=== PATIENT | female | born 1970 | race Caucasian/White ===

== ENCOUNTER → 2017-11-13 11:27 | Outpatient (CLI) | payer MEDICARE, SELFPAY ==
[2017-11-13 13:52] LABS: Amphetamine Urine VISTA NEGATIVE (<1000 ng/mL); Barbiturate Urine VISTA NEGATIVE (< 200 ng/mL); Benzodiazepine Urine VISTA NEGATIVE (< 200 ng/mL); Cocaine Urine VISTA NEGATIVE (< 300 ng/mL); Ecstacy Urine VISTA POSITIVE (< 500 ng/mL); Methadone Urine VISTA NEGATIVE (< 300 ng/mL); PCP Urine VISTA NEGATIVE (< 25 ng/mL); THC Urine VISTA NEGATIVE (< 50 ng/mL); Vista UDS pH Range 6
== END ==
PROVIDERS: Family Provider Internal Medicine; PCP Internal Medicine; Visit Provider Anesthesiology Pain Medicine
DX: F11.20 Opioid dependence, uncomplicated (principal)
CPT/HCPCS: 80307

== ENCOUNTER → 2018-01-30 14:51 | Outpatient (CLI) | payer MEDICARE, SELFPAY ==
[2018-01-30 16:06] LABS: ALB/GLOB Ratio 0.9 RATIO (0.9-2.4); AST(SGOT) 33 U/L (15-37); Alanine Aminotransfer ALT/SGPT 38 U/L (13-56); Albumin, Serum 3.8 g/dL (3.2-5.0); Alkaline Phosphatase 124 U/L (45-117); Anion Gap 7 (5-15); BUN 14 mg/dL (7-18); BUN/Creat Ratio 13.9 RATIO (10-20); Calcium,Total 9.2 mg/dL (8.5-10.1); Chloride 107 mmol/L (98-107); Creatinine, Serum 1.01 mg/dL (0.55-1.02); EST Glomerular Filtration Rate 62 mL/min (>60); Est Glom Filt Rate - Afr Amer 75 mL/min (>60); Globulin 4.2 g/dL (2.2-4.2); Glucose 89 mg/dL (74-106); Potassium 3.8 mmol/L (3.5-5.1); Sodium Level 142 mmol/L (136-145)
== END ==
PROVIDERS: Family Provider Internal Medicine; PCP Internal Medicine; Visit Provider Nurse Practitioner Adult Health
DX: Z85.528 Personal history of other malignant neoplasm of kidney (principal)
CPT/HCPCS: 36415; 80053

== ENCOUNTER → 2018-02-07 13:21 | Outpatient (CLI) | payer MEDICARE, SELFPAY ==
--- NOTE | 2018-02-07 13:25 | CT_ITS ---
STUDY: CT ABDOMEN AND PELVIS WITH AND WITHOUT CONTRAST REASON FOR EXAM: Female, 47 years old. Restaging of the renal cell carcinoma. Patient has had a partial left-sided nephrectomy. RADIATION DOSAGE (If Supplied By Facility): CTDIvol = ( 17.31 ) mGy, DLP = ( 2178.87 ) mGycm TECHNIQUE: Transaxial images were obtained from the dome of the diaphragm to the symphysis pubis without oral contrast. 100 ml of Isovue 300 contrast was administered. Sagittal and coronal images were reconstructed. Individualized dose optimization techniques were used for this CT. COMPARISON: CT of the abdomen and pelvis dated April 24, 2016. FINDINGS: The visualized lung bases are unremarkable. The visualized portions of the heart are within normal limits. Normal liver. There is non-visualization of the gallbladder, which may be secondary to either contraction or a prior cholecystectomy. Normal spleen. Normal pancreas. Normal bilateral adrenal glands. Normal right kidney. There is a focal defect of the upper pole left kidney probably related to partial nephrectomy. There may be tiny nonobstructing left-sided renal calculi measuring about 1 mm in size. There is no evidence for hydronephrosis, hydroureter or radiopaque ureteral calculus. Normal visualized stomach. There is no evidence for dilated bowel, ascites or pneumoperitoneum. Small bowel has a grossly normal appearance. Stool is visible throughout the colon with scattered colonic diverticula. There is non-visualization of the appendix. Normal abdominal aorta. Normal inferior vena cava. Normal retroperitoneum. Urinary bladder is nondistended. There appears to be a uterine mass at the fundus measuring 3.1 cm in greatest dimension. There is a smaller nodule within the lower uterine segment measuring approximately 1.6 cm in size. The uterus otherwise has a grossly normal appearance. Normal abdominal wall. Normal osseous structures. CT/CT Abd/Pelvis W/WO Contrast IMPRESSION: 1. No CT evidence for tumor recurrence or metastasis. 2. Unchanged postoperative appearance of left kidney. 3. Multiple uterine masses are likely leiomyomata similar to previous CT. Electronically Signed: Kaity Hernandez MD at 7:44 EDT , Service support ,
--- NOTE | 2018-02-07 13:53 | RAD_ITS ---
STUDY: X-RAY CHEST REASON FOR EXAM: Female, 47 years old. Renal cancer TECHNIQUE: Frontal and lateral views of the chest were obtained. COMPARISON: June 03, 2015 FINDINGS: The lungs are adequately aerated. There are no focal airspace opacities. There is no demonstrated pleural abnormality. The cardiac silhouette is normal in size. The mediastinum and hilar regions are unremarkable. Normal visualized pulmonary arteries. Normal visualized aortic arch and descending thoracic aorta. There are diffuse degenerative changes of the visualized spine. The visualized ribs, clavicles, and shoulders are unremarkable. There is no demonstrated abnormality of the visualized upper abdomen. RAD/Chest PA and Lateral IMPRESSION: No evidence of metastatic disease in the chest. Electronically Signed: Sheeba Menjivar MD at 22:16 EDT Tel Direct: [phone], Service support ,
== END ==
PROVIDERS: Family Provider Internal Medicine; PCP Internal Medicine; Visit Provider Nurse Practitioner Adult Health
DX: N20.0 Calculus of kidney (principal); Z90.5 Acquired absence of kidney; Z85.528 Personal history of other malignant neoplasm of kidney
CPT/HCPCS: 71046; 74178; Q9967; A4216

== ENCOUNTER → 2018-04-10 08:10 | Outpatient (CLI) | payer MEDICARE, SELFPAY ==
[2018-04-10 09:08] LABS: ALB/GLOB Ratio 0.8 RATIO (0.9-2.4); AST(SGOT) 21 U/L (15-37); Alanine Aminotransfer ALT/SGPT 27 U/L (13-56); Albumin, Serum 3.7 g/dL (3.2-5.0); Alkaline Phosphatase 125 U/L (45-117); Anion Gap 6 (5-15); BUN 17 mg/dL (7-18); BUN/Creat Ratio 14.5 RATIO (10-20); Chloride 108 mmol/L (98-107); Cholesterol 179 mg/dL (200); Creatinine, Serum 1.17 mg/dL (0.55-1.02); EST Glomerular Filtration Rate 52 mL/min (>60); Est Glom Filt Rate - Afr Amer 63 mL/min (>60); Globulin 4.6 g/dL (2.2-4.2); Glucose 82 mg/dL (74-106); High Density Lipoprotein 45 mg/dL; Potassium 3.7 mmol/L (3.5-5.1); Protein, Total 8.3 g/dL (6.4-8.2); Sodium Level 141 mmol/L (136-145); Triglycerides 193 mg/dL; Very Low Density Lipoprotein 39 mg/dL (5-40)
== END ==
PROVIDERS: Family Provider Internal Medicine; PCP Internal Medicine; Visit Provider Internal Medicine
DX: E78.5 Hyperlipidemia, unspecified (principal)
CPT/HCPCS: 36415; 80053; 80061

== ENCOUNTER → 2018-05-07 17:27 | Outpatient (CLI) | payer MEDICARE, SELFPAY ==
[2018-05-11 13:40] LABS: HPV APTIMA, High Risk Negative (Negative)
== END ==
PROVIDERS: Family Provider Internal Medicine; PCP Internal Medicine; Visit Provider Nurse Practitioner Women's Health
DX: Z12.4 Encounter for screening for malignant neoplasm of cervix (principal); N76.0 Acute vaginitis
CPT/HCPCS: 87070; 87205; 88175; G0145

== ENCOUNTER 2018-05-26 11:39 | Emergency (ER) | payer MEDICARE, SELFPAY ==
[2018-05-26 11:40] VITALS: BP 154/68; PULSE 83; RESP 16; TEMP 37.1; O2SAT 97; BMI 35.5
[2018-05-26] MEDS: morphine 10 MG/ML Syringe IM (12:17)
[2018-05-26] MEDS: Ondansetron ODT 4 MG Tablet PO (12:17)
[2018-05-26] MEDS: oxyCODONE 5 MG Tablet 10 MG PO (13:42)
--- NOTE | 2018-05-26 14:04 | ED.DCSUM_ITS ---
- ER Visit Summary Date of Service: 05/26/18 Chief Complaint: Fall with leg injury History of Present Illness: The patient is a 48 F who states that today she fell going down steps on carpeting. She took 2 Vicodin at home however she states the pain is severe. She notes pain in the distal left leg and ankle. History of chronic kidney disease and fibromyalgia as well as anxiety depression and obstructive sleep apnea and irritable bowel syndrome Physical Examination: Afebrile vital signs are stable Patient has swelling over the distal left leg and ankle. There is some mild ecchymosis. Limited range of motion due to pain. Pain over the medial lateral and posterior malleolus. She is neurovascular intact distally. She has excellent skin color. There appears to be no open areas. Test Results: X-rays revealed a distal tibial shaft fracture obliquely displaced as well as a tibial posterior malleolus fracture. There is also a distal fibular fracture. Emergency Department Course and Treatment: Patient received morphine for pain. She also received a dose of OxyIR. Patient was placed in a posterior and stirrup Ortho-Glass splint. Case was discussed with Dr. Ya. Patient was got up on crutches. She would like to go home. I will write for OxyIR at home this weekend. She is to elevate and ice the leg. Return if worsening or concerns. She is to follow-up with Dr. Ya as soon as possible. Impression: 1. Left tibial shaft fracture 2. Left tibial posterior malleolus fracture 3. Left distal fibular fracture 4. Splint by physician This note was generated with [employer] dictation software. It may contain incorrect words, spelling, and punctuation that were not noted in review of the chart prior to signing ED Disposition - Plan for ED Patient: Disposition: Home or Assisted Living Chief Complaint: Lower Extremity Injury Instructions: ED Fx Ankle General Prescriptions: Oxycodone [Oxyir] 5 mg PO Q6H PRN PRN 3 Days #12 tab PRN Reason: back pain Referrals: Soto Ya DO [STAFF PHYSICIAN] - As soon as possible Additional Instructions: Absolutely 100% no weightbearing on your left leg. Elevate the leg as much as possible above the level of your heart Ice on top of the splint. Monitor the color of your toes. If you are having significant pain, white toes , or any concerns please return to the emergency department
[2018-05-26 14:35] VITALS: BP 114/56; PULSE 62; RESP 16; O2SAT 94
== END 2018-05-26 14:37 | disposition home or self-care (01) ==
PROVIDERS: Emergency Provider Emergency Medicine; Family Provider Internal Medicine; PCP Internal Medicine
DX: S82.232A Displaced oblique fracture of shaft of left tibia, initial encounter for closed fracture (principal); S82.52XA Displaced fracture of medial malleolus of left tibia, initial encounter for closed fracture; S82.832A Other fracture of upper and lower end of left fibula, initial encounter for closed fracture; W10.9XXA Fall (on) (from) unspecified stairs and steps, initial encounter; Y93.9 Activity, unspecified; Y92.9 Unspecified place or not applicable; N18.9 Chronic kidney disease, unspecified; M79.7 Fibromyalgia; K58.9 Irritable bowel syndrome, unspecified; G47.33 Obstructive sleep apnea (adult) (pediatric); F41.9 Anxiety disorder, unspecified; F32.9 Major depressive disorder, single episode, unspecified; Z90.49 Acquired absence of other specified parts of digestive tract; Z90.5 Acquired absence of kidney; Z79.899 Other long term (current) drug therapy
CPT/HCPCS: 29515; 73590; 96372; 99283

== ENCOUNTER → 2018-05-28 09:57 | Outpatient (CLI) | payer MEDICARE, SELFPAY ==
--- NOTE | 2018-05-28 10:22 | CT_ITS ---
STUDY: CT LEFT ANKLE WITHOUT CONTRAST REASON FOR EXAM: Left ankle fracture. TECHNIQUE: Thin section transaxial imaging of the ankle was obtained, with sagittal, coronal and 3-D reconstructed images. Individualized dose optimization techniques were used for this CT. COMPARISON: Radiographs 05/26/2018. FINDINGS: There is a spiral fracture of the distal tibial diaphysis displaced laterally approximately 0.6 cm (coronal reconstructions 36-42). There is an oblique fracture of the distal fibula with posterior displacement by approximately 0.5 cm (sagittal reconstructions 32-35). There is a essentially nondisplaced posterior malleolar fracture (sagittal reconstructions 22-27). Normal tibiotalar articulation and talar dome. Normal talus, navicular and cuboid tarsal bones. There are small posterior and plantar calcaneal enthesophytes. There is a small os trigonum. There is a bone island in the lateral cuneiform. Normal subtalar, talonavicular and calcaneocuboid articulations. Normal navicular-cuneiform, cuneiform tarsal bones and intercuneiform articulations. Normal tarsometatarsal articulations and visualized metatarsi. There is soft tissue swelling. CT/Coronals Sag Multi Obl 3-D Rec IMPRESSION: Trimalleolar fracture. Electronically Signed: Sergio Neri MD at 11:22 EDT Tel , Service support ,
== END ==
PROVIDERS: Family Provider Internal Medicine; PCP Internal Medicine; Visit Provider Specialist
DX: S82.302A Unspecified fracture of lower end of left tibia, initial encounter for closed fracture (principal); X58.XXXA Exposure to other specified factors, initial encounter; Y93.9 Activity, unspecified; Y92.9 Unspecified place or not applicable; Y99.9 Unspecified external cause status
CPT/HCPCS: 73700; 76377

== ENCOUNTER 2018-05-30 10:03 | Day surgery (SDC) | payer MEDICARE, SELFPAY ==
[2018-05-30] VITALS (15 sets, daily range): BP systolic 118–148; BP diastolic 54–86; PULSE 74–102; RESP 16–18; TEMP 36.2–37.4; O2SAT 90–96; BMI 35.9
--- NOTE | 2018-05-30 10:08 | EKG12_ITS ---
Test Reason : PRE OP Blood Pressure : / mmHG Vent. Rate : 082 BPM Atrial Rate : 082 BPM P-R Int : 146 ms QRS Dur : 086 ms QT Int : 376 ms P-R-T Axes : 024 005 043 degrees QTc Int : 439 ms Normal sinus rhythm Normal ECG When compared with ECG of 03-JUN-2015 17:09, No significant change was found Confirmed by WOODY KIM, SYL ([id number]), deputy editor in chief DANIEL PATINO ([id number]) on 06/01/2018 1:35:05 PM Referred By: Krishna Erazo Confirmed By:SYL MCKAY MD
--- NOTE | 2018-05-30 12:30 | RAD_ITS ---
STUDY: X-RAY - LEFT TIBIA AND FIBULA REASON FOR EXAM: Female, 48 years old. Tibial rodding. TECHNIQUE: 7 coned-down view(s) of the tibia and fibula were obtained intraoperatively. COMPARISON: None. FINDINGS: Intraoperative fluoroscopic services provided for medullary jenna fixation of the distal tibial fracture and ORIF of the distal fibular fracture. RAD/Tibia & Fibula 2 Views IMPRESSION: Intraoperative imaging provided for ORIF of the distal tibial and fibular fractures. Electronically Signed: James Kuhn MD at 14:51 EDT Tel [phone], Service support ,
--- NOTE | 2018-05-30 14:11 | PCM.OPRPT ---
Report of Operation Date of Procedure: 05/30/18 Pre-Operative Diagnosis: Left distal tibia shaft fracture. Left distal fibula fracture. Left syndesmosis separation Post-Operative Diagnosis: Left distal tibia shaft fracture. Left distal fibula fracture. Left syndesmosis separation Surgery/Procedure Performed:: 1. Left tibial intramedullary nail. 2. Left distal fibula ORIF. 3. ORIF left syndesmosis Description of Surgical Findings:: Well aligned fracture with stable ankle and well aligned ankle joint. registered nurse cardiac: Manish Simons Type of Anesthesia:: General Anesthesiologist: Chris Frances Special Medications: 600 milligrams clindamycin Estimated Blood Loss (mL): 25 Fluids Replaced: 1300 ml crystalloid Description of Procedure: On the date of the procedure patient's left ankle and knee were marked in the preoperative area. Patient was taken back to the operating room where there transferred the table in the supine position. Anesthesia assumed control the C-spine airway and remained controlled throughout the remainder procedure. All bony prominences were identified well-padded and anesthesia administered anesthetic. After anesthetic was administered also placed underneath the left lower extremity and tourniquet was placed on the left upper thigh. Tourniquet was removed and the left leg was prepped in a sterile fashion. Surgeons then left the room to scrub. Upon reentering the room the left lower extremity was draped in a standard orthopedic fashion. Incision was marked out proximal to the patella for the suprapatellar approach for the nail and over the lateral ankle. Esmarch bandage was used to obtain it extremity after timeout was called. During the timeout of when agreed upon the side, the site, and the procedure be performed, patient's identity and antibiotics given. After exsanguination tourniquet was placed up to 250 mmHg. Incision was taken down through skin subtenons tissue blunt dissection was taken down through fat down to the fascia. We identified the superficial peroneal nerve and protected it during the case. Using a direct lateral approach were able to obtain reduction of the tibia with point reduction clamps. Once we verified this with live x-ray we turned our attention to the fibula which was nearly reduced after reducing the tibia. Point reduction clamps were used to reduce the tibia and a 3.5 mm lag screw was placed using lag screw by technique. Once this was done based on the distal most of the fracture we used the locking fibular plate. Screws were placed proximally and distally to provisionally fix the plate and fracture reduction was verified with live x-ray. Once we are happy with this we placed locking screws distally and cortical screws proximally. Once this was done we were able to examine the syndesmosis as the tibia had been stabilized and the fibula was stabilized. Syndesmosis was grossly disrupted. At this time we then directed our attention to the knee. An incision was made proximal to the patella and a suprapatellar pouch was used. The trocar was placed in the knee and live x-ray was used to advance the guidewire through the proximal trocar. Once the guidewire was advanced the opening reamer was used to open up the proximal tibial canal. We then reamed to 10.5 mm and obtained good chatter. Once we are happy with this we measured the length of the nail. The nail was hit from the physeal scar. A 345 mm x 9 mm nail was selected. Trocar was removed from the knee and the nail was placed over the guidewire. We did ream over the guidewire. Once the nail was advanced appropriately we watch the fracture while dancing the nail and verified the fracture reduction maintained. We then placed our distal locking screw using a ute mountain technique and then back slapped the fracture. We then placed the proximal screw through the proximal screw guide using a dynamic technique. I to placing the screws the guidewire had been removed from the nail. The proximal jig was then removed from the nail. At this time our attention was turned back towards the ankle. Under direct visualization we exposed and reduced the syndesmosis. Using syndesmosis clamp this reduction was held in place. We then placed a syndesmosis screw through the plate and fibula obtaining 4 cortices in the tibia. Once the screw was placed final x-rays were taken. Final x-rays showed well reduced fracture, well aligned ankle and implants were well seated in the knee. All wounds were copiously reviewed out normal saline. The arthrotomy was closed with 0 Vicryl, skin was closed with 2-0 Vicryl and lisa. Puncture wounds for locking screws and clamps were closed with lisa. Lateral ankle incision was closed with 0 Vicryl for the fascia, 2-0 Vicryl for subcutaneous layer and final skin closure was done with nylon suture. Xeroform dressing was placed, sterile dressings were placed. Posterior splint was placed. Patient was awakened by anesthesia and transferred the PACU for recovery. Postoperative plan for this patient she will be nonweightbearing for a total of 6 weeks. She will be taken out of her splint 2 weeks to have sutures removed and begin range of motion exercises and placed in a boot. She will take aspirin 325 mg daily for 2 weeks to prevent DVTs. System assistant federal public defender was a vital part of this case. He often positioning the patient. He often pulling traction and maintaining fracture reduction during the procedure. Help in retraction of vital structures including superficial peroneal nerve during the procedure. He was also vital in closure and splinting under my direct supervision. Grafts/Implants Used: Synthes 5 hole locking fibular plate, tibial nail 345 x 9 - Complications none - Admit VTE Documentation VTE Present on Admission: No VTE Mechan Device Prophylaxis: SCD's, Thigh High HANG Hose VTE Pharm Prophylaxis ordered?: Yes
[2018-05-30] MEDS: Ketorolac 30 MG/ML Syringe IV (15:05)
== END 2018-05-30 19:07 | disposition home or self-care (01) ==
LOC: SDC 10:04 → AC 10:05
PROVIDERS: Family Provider Internal Medicine; PCP Internal Medicine; Visit Provider Specialist
PROC: (CPT 27759; principal; 2018-05-30 12:10)
DX: S82.302A Unspecified fracture of lower end of left tibia, initial encounter for closed fracture (principal); S82.832A Other fracture of upper and lower end of left fibula, initial encounter for closed fracture; W01.0XXA Fall on same level from slipping, tripping and stumbling without subsequent striking against object, initial encounter; Y93.01 Activity, walking, marching and hiking; Y92.009 Unspecified place in unspecified non-institutional (private) residence as the place of occurrence of the external cause; Y99.9 Unspecified external cause status; E78.00 Pure hypercholesterolemia, unspecified; K58.9 Irritable bowel syndrome, unspecified; F32.9 Major depressive disorder, single episode, unspecified; F41.9 Anxiety disorder, unspecified; Z78.0 Asymptomatic menopausal state; Z79.82 Long term (current) use of aspirin; Z79.899 Other long term (current) drug therapy; Z85.528 Personal history of other malignant neoplasm of kidney
CPT/HCPCS: 01480; 27759; 27792; 27829; 73590; 73610; 76000; 93005; C1713; J7120; J2405; J3490

== ENCOUNTER → 2018-07-18 14:03 | Outpatient (CLI) | payer MEDICARE, SELFPAY ==
--- NOTE | 2018-07-18 14:06 | VDLE_ITS ---
Reason For Study: Swelling RIGHT LEFT GSV is normal. GSV is normal. CFV is compressible, spontaneous, phasic, CFV is compressible, spontaneous, phasic, competent and demonstrates normal competent, and demonstrates normal augmentation. augmentation. FV is compressible, spontaneous, phasic, FV is compressible, spontaneous, phasic, competent and demonstrates normal competent and demonstrates normal augmentation. augmentation. POP V is compressible, spontaneous, phasic, POP V is compressible, spontaneous, phasic, competent and demonstrates normal competent and demonstrates normal augmentation. augmentation. T/P Trunk is compressible. T/P Trunk is compressible. PTV is compressible. PTV is compressible. RT PerV is compressible. LT PerV is compressible. Procedure Exam performed in department. A preliminary report was called and/or faxed to Dr. Gonzalez. <> Interpretation Summary Deep veins of the lower extremities are bilaterally patent and compressible segmentally. There is no evidence of deep vein thrombosis on either side. Valvular competence appears intact within the proximal deep venous systems bilaterally. The greater saphenous veins appear bilaterally patent and compressible segmentally. Ordering Physician: Clare Gonzalez Referring Physician: Sanjay Sims Performed By: Alyssa Fenton, CHLOÉ, RVT
== END ==
PROVIDERS: Family Provider Internal Medicine; PCP Internal Medicine; Referring Provider Anesthesiology Pain Medicine; Visit Provider Anesthesiology Pain Medicine
DX: M79.89 Other specified soft tissue disorders (principal)
CPT/HCPCS: 93970; 97110; 97116

== ENCOUNTER → 2018-08-01 12:17 | Outpatient (CLI) | payer MEDICARE, MEDICAID, SELFPAY ==
[2018-08-01 13:48] LABS: Absolute Lymphocyte Count 1.49 X10^3/ul (0.83-4.51); Absolute Neutrophil Count 5.1 X10^3/uL (2.0-7.7); Basophil# 0.02 X10^3/uL; Basophil% 0.3 % (0-1); Eosinophil# 0.28 X10^3/uL; Eosinophils% 3.8 % (0-5); Hematocrit 41.1 % (37-47); Hemoglobin 13.2 g/dl (12.0-15.0); Lymphocyte # 1.49 X10^3/ul (4.0); Mean Corp Hgb Conc 32.1 g/gl (32-36); Mean Corpuscular Hgb 31.1 pg (27.0-32.0); Mean Corpuscular Volume 96.9 fL (81-99); Monocyte% 6.7 % (0-10); Neutrophil # 5.14 X10^3/uL (2.7-7.7); Neutrophil % 69.1 % (47-70); Platelet Count 264 K/mm3 (150-450); RBC Distribution Width SD 45.7 fl (35.1-43.9); Red Blood Count 4.24 M/mm3 (4.2-5.4); White Blood Count 7.4 K/mm3 (4.4-11.0)
[2018-08-01 13:49] LABS: Erythrocyte Sedimentation Rate 63 mm/hr (0-30); POSITIVE COUNT NO; POSITIVE DIFFERENTIAL NO; POSITIVE MORPHOLOGY NO
== END ==
PROVIDERS: Family Provider Internal Medicine; PCP Internal Medicine; Referring Provider Physician Assistant Surgical; Visit Provider Physician Assistant Surgical
DX: S82.242D Displaced spiral fracture of shaft of left tibia, subsequent encounter for closed fracture with routine healing (principal)
CPT/HCPCS: 36415; 85025; 85652; 86140; 87070; 87075; 87077; 87186; 87205; 97530

== ENCOUNTER → 2018-10-01 09:00 | Outpatient (CLI) | payer MEDICARE, MEDICAID, SELFPAY ==
[2018-05-30 10:27] VITALS: BMI 35.9
[2018-10-01 09:58] LABS: Anion Gap 10 (5-15); BUN 15 mg/dL (7-18); BUN/Creat Ratio 13.2 RATIO (10-20); Calcium,Total 9.3 mg/dL (8.5-10.1); Chloride 106 mmol/L (98-107); Creatinine, Serum 1.14 mg/dL (0.55-1.02); EST Glomerular Filtration Rate 54 mL/min (>60); Est Glom Filt Rate - Afr Amer 65 mL/min (>60); Glucose 92 mg/dL (74-106); Potassium 3.9 mmol/L (3.5-5.1); Sodium Level 144 mmol/L (136-145)
== END ==
PROVIDERS: Family Provider Internal Medicine; PCP Internal Medicine; Referring Provider Internal Medicine; Visit Provider Internal Medicine
DX: N17.9 Acute kidney failure, unspecified (principal)
CPT/HCPCS: 36415; 80048; 97110

== ENCOUNTER 2018-10-23 11:00 | Outpatient (RCR) | payer MEDICARE, MEDICAID, SELFPAY ==
--- NOTE | 2018-07-23 12:55 | HP.PTEVAL_ITS ---
Patient's Visit Information JOVAN GRANT is a 48 year old F referred to Physical Therapy by Krishna Erazo MD with a diagnosis of L tibial and femur fracture with ORIF. Date of Evaluation: 07/18/18 Physical Therapist: Aman Frederick - Visit Plan Frequency: 2-3x /Week Duration: 4-6 Weeks Plan: Cont Left Ankle, Knee and LE ROM and Strength. - Subjective Subjective: Pt. is here today for her initial evaluation with diagnosis of L tibial and femur fracture with ORIF. Pt. reports falling while at home goind down her stairs. DOS: 05/30/18. Pt. arrives today in WC and with CAM boot on LLE. Pt. reports being basically minimal NWB since. Pt. is now allowed to be WBAT. Pt. also reports she is seeing pain management, due to feeling she has CRPS in her LLE now. Pt. did have doppler that showed no DVT. Pt. was previously independent with all ADLs, driving and house work. Pt. has not been doing any exercises except ankle pumps and circles. Pt. is hopeful to reduce symptoms in order to get back to all recreational and household activities without limitations. - Pain L foot Pain Intensity (Out of 10): 5 Pain Intensity Range: 4, 8 - Objective POSTURE: Pt. has FH posture, increased wt shift to R side with use of FWW in stance. Pt. lacks TKE on L side. Rounded shoulders with heavy use of AD in stance. PALPATION: Pt. has tenderness throughout LLE, redness noted throughout distal foot. Pt. has normal well healing incision. Pt. has not pain with palpation of calf. Pt. 1+ pitting in distal LLE. Shiny skin noted throughout foot. NEURO: Normal senation throughout B LEs. Pt. has 2+ achilles and patellar DTR bilaterally. ROM: RLE- ankle DF 18deg, PF 51deg, INV/EVR 18deg. Rknee- 0-0-128deg. LLE- ankle- DF -2deg, PF 46deg, INV- 4deg, EVR 4deg. L knee 0-8-98deg. MMT- RLE- 5/5 throughout; LLE- ankle- 4/5 throughout increase NW, knee- ext 4/5 increase NW, flexion 4/5 NE. GAIT: Pt. ambulated 28feet with FWW, heavy use of AD. Pt. lack TKE on LLE durings tance phase, quick transition of L in stance phase. Increased LLE pain noted during stance phase. STAIRS: Pt. is able to compelte with BHR with step to pattern with increased symptoms to 6/10 in LLE. - Goals Goal 1:: Pt. to be I with HEP. Goal Time Frame: 4-6 Weeks Goal 2:: Pt. to have increased L ankle ROM symmetrical to R ankle allowing for increased tolerance to all mobility. Goal Time Frame: 4-6 Weeks Goal 3:: Pt. to ambulate unlimited distances with normal gait pattern withotu increase in symptoms. Goal Time Frame: 4-6 Weeks Goal 4:: Pt. to have increased LLE MMT increased by 1/2 grade of all effected musculature. Goal Time Frame: 4-6 Weeks Goal 5:: Pt. to negotiate steps with 1 HR with reciprocal pattern allowing for increased ease in home. Goal Time Frame: 4-6 Weeks Goal 6:: Pt. to have decreased pain with sleeping to 2/10 allowing for increased quality of life. Goal Time Frame: 4-6 Weeks - Rehabilitation Potential Physical Therapy Diagnosis: L tibial and femur fracture with ORIF with subsequent hypomobility, weakness, difficulty with gait and increased pain. Pt. also reports she has been disgnosed with CRPS in her L distal LE. Pt. would benefit from PT to increase ROM, decrease pain, increase strength and increase tolerance to all activities. Rehabilitation Potential: Fair - Anticipated Interventions Patient/Client Instruction: Educate patient on: Condition, Plan of Care, Risk Factors, Benefits of Fitness Program For the Purpose of:: To improve decision making, To facilitate caregiver knowledge, To improve self management, To prevent re-injury, To improve ability to perform tasks related to life management, To improve tolerance to ADL's Therapeutic Exercise to Include: Strength training, Power training, Endurance training, Balance training, Postural training, Flexibilty training, Gait and locomotor training, Passive ROM, Active ROM For the Purpose of:: To decrease pain, To decrease swelling/inflammation, To increase ROM, To improve nutrient delivery to tissue, To increase oxygenation perfusion, To improve muscle performance and motor function, To improve ability to perform ADL's, To increase tolerance to activity/condition/position, To improve gait and locomotor functions, To improve health of tissue, To decrease soft tissue restriction, To increase flexibility/ROM, To improve balance, To improve safety with gait Manual Therapy Techniques to Include: Scar massage, Manual lymph drainage, Mobilization, Passive ROM For the Purpose of:: To decrease pain, To decrease swelling/inflammation, To increase ROM IF ES: Yes Cryotherapy (ice pack, ice massage): Yes Vasopneumatic device: Yes For the Purpose of:: To decrease pain, To decrease swelling/inflammation, To increase ROM Thank you for the opportunity to evaluate your patient. For Medicare and Medicare HMO plans, please review the plan of care and approve it. It will need to be FAXED BACK to us at [phone] for Medicare purposes. Please let me know if there are questions or concerns regarding this plan of care. Physician Signature: Date:
--- NOTE | 2018-09-14 11:58 | HP.PTREVAL_ITS ---
Krishna Erazo MD, It has been my pleasure to treat JOVAN GRANT over the last 14 visits for L tibial and femur fracture with ORIF. Please see the progress note below for an update on the physical therapy plan of care! Subjective: Pt. reports I just feel sick today. It's a head cold. Pt. arrives todat with cane and ankle wrapped with SRAVANTHI. Pt. reports being 55% better overall. She is to follow up with her physician next week. Pt. reports being HEP compliant at home. She Objective/Function: ROM- L ankle- DF 4 deg, PF 44deg, INV 5deg, EVR 3deg. L knee 0-0-115deg. MMT- L ankle- PF 4+/5, DF 4/5, INV 4-/5, EVR 4/5.; L knee- ext- 4+/5, flexion 4+/5; hip- flexon 4/+/5, and 4/5, ext 4/5. GAIT: Pt. ambulates with cane 1500' without LOB. Pt. continues to present with antalgic pattern. Pt. has increased L knee hyper ext during rocker moment from mid foot to forefoot, due to lack of ankle DF. Pt. has normal step length without issues. Pt. also has presents with increased R lateral hip drop, most likely due to L glute med weakness. STAIRS: Pt. is able to ascend with use of BHR without problem, but dose presents with LLE functional weakness. Descending pt. has greater difficulty. She has decreased functional stability with descending on her LLE, early heel off on LLE and decreased glute med/quad control. Plan Plan: POC extended x2 per week for 4 more weeks. Goals Goal 1:: Pt. to be I with HEP. Goal Time Frame: 4-6 Weeks Goal Progress: Goal Met Goal 2:: Pt. to have increased L ankle ROM symmetrical to R ankle allowing for increased tolerance to all mobility. Goal Time Frame: 4-6 Weeks Goal Progress: Progressing Goal 3:: Pt. to ambulate unlimited distances with normal gait pattern withotu increase in symptoms. Goal Time Frame: 4-6 Weeks Goal Progress: Progressing Goal 4:: Pt. to have increased LLE MMT increased by 1/2 grade of all effected musculature. Goal Time Frame: 4-6 Weeks Goal Progress: Progressing Goal 5:: Pt. to negotiate steps with 1 HR with reciprocal pattern allowing for increased ease in home. Goal Time Frame: 4-6 Weeks Goal Progress: Progressing Goal 6:: Pt. to have decreased pain with sleeping to 2/10 allowing for increased quality of life. Goal Time Frame: 4-6 Weeks Goal Progress: Progressing Anticipated Interventions Patient/Client Instruction: Educate patient on: Condition, Plan of Care, Risk Factors, Benefits of Fitness Program For the Purpose of:: To improve decision making, To facilitate caregiver knowledge, To improve self management, To prevent re-injury, To improve ability to perform tasks related to life management, To improve tolerance to ADL's Therapeutic Exercise to Include: Strength training, Power training, Endurance training, Balance training, Postural training, Flexibilty training, Gait and locomotor training, Passive ROM, Active ROM For the Purpose of:: To decrease pain, To decrease swelling/inflammation, To increase ROM, To improve nutrient delivery to tissue, To increase oxygenation perfusion, To improve muscle performance and motor function, To improve ability to perform ADL's, To increase tolerance to activity/condition/position, To improve gait and locomotor functions, To improve health of tissue, To decrease soft tissue restriction, To increase flexibility/ROM, To improve balance, To improve safety with gait Manual Therapy Techniques to Include: Scar massage, Manual lymph drainage, Mobilization, Passive ROM For the Purpose of:: To decrease pain, To decrease swelling/inflammation, To increase ROM IF ES: Yes Cryotherapy (ice pack, ice massage): Yes Vasopneumatic device: Yes For the Purpose of:: To decrease pain, To decrease swelling/inflammation, To increase ROM Please do not hesitate to contact me at [phone] by phone or Fax: if you have questions or concerns regarding this new plan of care! Sincerely, Aman Frederick DPT
--- NOTE | 2018-10-24 11:18 | HP.PTREVAL ---
Krishna Erazo MD, It has been my pleasure to treat JOVAN GRANT over the last 20 visits for L tibial and femur fracture with ORIF. Please see the progress note below for an update on the physical therapy plan of care! Subjective: Pt. reports I am doing pretty well today. pt. reports minimal issues since last PT. Pt. was out of town for vacation and then missed the following week due to weather. Pt. repors having constant nerve pain at 3/10, but otherwise is feeling pretty well. Objective/Function: ROM: L ankle- AROM- DF 3deg, PF 30deg, INV 18deg, EVR 8deg. PROM- DF 6deg, PF 40deg, inv 18deg, EVR 10deg. L knee full motion without increase in symptoms. MMT: L ankle- 5/5 throughout, except EVR 4/5 and DF 5-/5. L knee 5-/5 throughout. GAIT: Pt. is able to ambulate without AD, but has slight increase in R lateral lean, early heel off with LLE, normal step length, but decreased tempo. With cane, patient has improved tempo and step length with using AD. Pt. is able to negotaite steps with reciprocal pattern, but does have increased difficutly with early heel off with LLE during descending. Plan Plan: Pt. is to complete all exercises on own for next few weeks leading up to following up with physician. Pt. is pleased. I talked with her about continuing to strech especially with DF to increase calf length allowing for improve gait pattern, pt consents. If patient is not seen in the next 4 weeks I will DC case. Goals Goal 1:: Pt. to be I with HEP. Goal Time Frame: 4-6 Weeks Goal Progress: Goal Met Goal 2:: Pt. to have increased L ankle ROM symmetrical to R ankle allowing for increased tolerance to all mobility. Goal Time Frame: 4-6 Weeks Goal Progress: Progressing Goal 3:: Pt. to ambulate unlimited distances with normal gait pattern withotu increase in symptoms. Goal Time Frame: 4-6 Weeks Goal Progress: Progressing Goal 4:: Pt. to have increased LLE MMT increased by 1/2 grade of all effected musculature. Goal Time Frame: 4-6 Weeks Goal Progress: Goal Met Goal 5:: Pt. to negotiate steps with 1 HR with reciprocal pattern allowing for increased ease in home. Goal Time Frame: 4-6 Weeks Goal Progress: Goal Met Goal 6:: Pt. to have decreased pain with sleeping to 2/10 allowing for increased quality of life. Goal Time Frame: 4-6 Weeks Goal Progress: Goal Met Anticipated Interventions Patient/Client Instruction: Educate patient on: Condition, Plan of Care, Risk Factors, Benefits of Fitness Program For the Purpose of:: To improve decision making, To facilitate caregiver knowledge, To improve self management, To prevent re-injury, To improve ability to perform tasks related to life management, To improve tolerance to ADL's Therapeutic Exercise to Include: Strength training, Power training, Endurance training, Balance training, Postural training, Flexibilty training, Gait and locomotor training, Passive ROM, Active ROM For the Purpose of:: To decrease pain, To decrease swelling/inflammation, To increase ROM, To improve nutrient delivery to tissue, To increase oxygenation perfusion, To improve muscle performance and motor function, To improve ability to perform ADL's, To increase tolerance to activity/condition/position, To improve gait and locomotor functions, To improve health of tissue, To decrease soft tissue restriction, To increase flexibility/ROM, To improve balance, To improve safety with gait Manual Therapy Techniques to Include: Scar massage, Manual lymph drainage, Mobilization, Passive ROM For the Purpose of:: To decrease pain, To decrease swelling/inflammation, To increase ROM IF ES: Yes Cryotherapy (ice pack, ice massage): Yes Vasopneumatic device: Yes For the Purpose of:: To decrease pain, To decrease swelling/inflammation, To increase ROM Please do not hesitate to contact me at [phone] by phone or if you have questions or concerns regarding this new plan of care! Sincerely, Aman Frederick DPT
--- NOTE | 2018-12-17 18:26 | HP.PT.NRP ---
HP - Discharge Summary (1) - Patient Information JOVAN GRANT was seen in my office for initial evaluation on 07/18/18. The following Plan of Care was established for this patient: Initial Frequency: 2-3x /Week Initial Duration: 4-6 Weeks - Anticipated Interventions Patient/Client Instruction: Educate patient on: Condition, Plan of Care, Risk Factors, Benefits of Fitness Program For the Purpose of:: To improve decision making, To facilitate caregiver knowledge, To improve self management, To prevent re-injury, To improve ability to perform tasks related to life management, To improve tolerance to ADL's Therapeutic Exercise to Include: Strength training, Power training, Endurance training, Balance training, Postural training, Flexibilty training, Gait and locomotor training, Passive ROM, Active ROM For the Purpose of:: To decrease pain, To decrease swelling/inflammation, To increase ROM, To improve nutrient delivery to tissue, To increase oxygenation perfusion, To improve muscle performance and motor function, To improve ability to perform ADL's, To increase tolerance to activity/condition/position, To improve gait and locomotor functions, To improve health of tissue, To decrease soft tissue restriction, To increase flexibility/ROM, To improve balance, To improve safety with gait Manual Therapy Techniques to Include: Scar massage, Manual lymph drainage, Mobilization, Passive ROM For the Purpose of:: To decrease pain, To decrease swelling/inflammation, To increase ROM IF ES: Yes Cryotherapy (ice pack, ice massage): Yes Vasopneumatic device: Yes For the Purpose of:: To decrease pain, To decrease swelling/inflammation, To increase ROM This patient was last seen in our office 10/23/18. Pertinent comments regarding their Physical therapy will appear below: Pt. was treated for her ankle fx and subsequent RSD. Pt. made good gains with ROM, strength and functional mobilit. She was still dealing with increased pain, but was overall moving much better. Pt. was to follow up with physician then back with PT if needed. Pt. has not been seenin several weeks and will be DC from PT at this point in time. At this point I will be discontinuing this patient from physical therapy. I would be happy to see this patient again in the future if found appropriate by the physician. Thank you! Aman Frederick DPT
== END 2018-10-23 19:00 | disposition home or self-care (01) ==
LOC: PT 11:00
PROVIDERS: Family Provider Internal Medicine; PCP Internal Medicine; Referring Provider Specialist; Visit Provider Specialist
DX: S82.242D Displaced spiral fracture of shaft of left tibia, subsequent encounter for closed fracture with routine healing (principal); S82.842D Displaced bimalleolar fracture of left lower leg, subsequent encounter for closed fracture with routine healing; S93.432D Sprain of tibiofibular ligament of left ankle, subsequent encounter
CPT/HCPCS: 97016; 97110; 97116; 97162; 97530

== ENCOUNTER → 2018-10-25 13:33 | Outpatient (CLI) | payer MEDICARE, SELFPAY ==
[2018-10-15 11:06] VITALS: BMI 34.8
--- NOTE | 2018-10-25 13:44 | BD_ITS ---
STUDY: DUAL ENERGY X-RAY ABSORPTIOMETRY / DXA REASON FOR EXAM: Female, 48 years old. The patient is postmenopausal. Loss of height. TECHNIQUE: Bone Mineral Density (BMD) measurements of lumbar spine and bilateral hips were obtained. COMPARISON: None. FINDINGS: Lumbar Spine (L1-L4): g/cm2 (1.614) / T-score (3.6) / Z-score (4.0) Findings are suggestive of normal bone density with a low fracture risk. Left Femur Total: g/cm2 (1.145) / T-score (1.1) / Z-score (1.6) Left Femoral Neck: g/cm2 (1.098) / T-score (0.4) / Z-score (1.2) Right Femur Total: g/cm2 (1.177) / T-score (1.3) / Z-score (1.8) Right Femoral Neck: g/cm2 (1.145) / T-score (0.8) / Z-score (1.6) BD/Dexa Bone Density Study IMPRESSION: The patient is considered normal as outlined below according to World Reece Organization (WHO) criteria with a low fracture risk. Reference Information: The T-score is the number of standard deviations above or below the standard which is normal for young adults at their peak bone mineral density. The World Health Organization (WHO) interprets the T-scores as follows: Above -1 Normal bone density Between -1 and -2.5 Osteopenia Equal to / or below -2.5 Osteoporosis As a practical clinical guideline, osteopenia may be graded as follows: Mild -1 through -1.5 Moderate -1.6 through -2.0 Severe -2.1 through -2.4 The Z-score is the number of standard deviations above or below age-matched controls. A Z-score of less than -1.5 would be considered abnormal. References: 1. NIH Osteoporosis and Related Bone Diseases http://www.osteo.org 2. International Society for Clinical Densitometry http://www.iscd.org 3. National Osteoporosis Foundation http://www.nof.org Electronically Signed: James Kuhn MD at 14:09 EST , Service support ,
== END ==
PROVIDERS: Family Provider Internal Medicine; PCP Internal Medicine; Referring Provider Internal Medicine; Visit Provider Internal Medicine
DX: M84.40XA Pathological fracture, unspecified site, initial encounter for fracture (principal); Z78.0 Asymptomatic menopausal state; R29.890 Loss of height
CPT/HCPCS: 77080

== ENCOUNTER → 2018-10-31 12:54 | Outpatient (CLI) | payer MEDICARE, SELFPAY ==
[2018-10-31 11:13] VITALS: BMI 34.8
[2018-10-31 13:26] LABS: Color, Urine Yellow (Yellow); Glucose, Dipstick Normal (Normal); Ketone-Dipstick 5 mg/dl (Negative); Leukocyte Esterase-Dipstick 500 /ul (Negative); Nitrite-Dipstick Positive (Negative); Occult Blood-Urine 10 /ul (Negative); Protein-Dipstick 30 mg/dl (Negative); Urine Bilirubin Dipstick Negative (Negative); Urine Clarity Cloudy (Clear); Urine Urobilinogen Normal (Normal)
[2018-10-31 13:35] LABS: White Blood Cells 5-10 SEEN /hpf (0-5)
[2018-10-31 13:36] LABS: Amorphous Sediment 1+; Bacteria 4+ /hpf (None Seen); Calcium Oxalate Crystals Ur 1+ /hpf (<or=2+); Mucous, Urine RARE /hpf (<or=2+); Red Blood Cells-Urine 0-5 SEEN /hpf (0-5); Squamous Epithelial Cells - UA 0-5 SEEN /hpf (5-10)
== END ==
PROVIDERS: Family Provider Internal Medicine; PCP Internal Medicine; Referring Provider Nurse Practitioner Family; Visit Provider Nurse Practitioner Family
DX: N30.00 Acute cystitis without hematuria (principal)
CPT/HCPCS: 81001; 87086; 87088; 87186

== ENCOUNTER → 2018-11-21 14:29 | Outpatient (CLI) | payer MEDICARE, SELFPAY ==
[2018-10-31 11:13] VITALS: BMI 34.8
--- NOTE | 2018-11-21 14:54 | CT_ITS ---
STUDY: CT LOWER EXTREMITY WITHOUT CONTRAST LEFT REASON FOR EXAM: Female, 48 years old. Spiral fracture in May. Fall down stairs. RADIATION DOSAGE (If Supplied By Facility): CTDIvol = ( 15.35 ) mGy, DLP = ( 761.79 ) mGycm. Individualized dose optimization techniques were used for this CT.? TECHNIQUE: Axial images through the tibia and fibula without administration of intravenous contrast with sagittal and coronal reconstructions. The very proximal tibia and fibula not included on the study. COMPARISON: Tibia and fibula May 26, 2018. CT left ankle May 28, 2018. FINDINGS: Alignment is normal. No fracture or dislocation. Postoperative changes of ORIF fractures of the tibia and fibula. A tibial intramedullary jenna is present stabilized by transversely oriented screws involving the proximal distal tibial metaphyses. In the distal fibula lateral multi hole plate with screws. Surgical hardware appears intact. Mortise joint is well maintained. Old trimalleolar fractures are visualized. Oblique nondisplaced fracture distal tibial metadiaphysis. There is evidence of bony bridging involving the proximal aspect of the fracture on the lateral view adjacent to the posterior cortex sagittal image 41. Mildly displaced fracture of the posterior malleolus of the tibia axial image 142 series 3 and sagittal image 43. The fracture fragment measures 1.4 x 1.0 cm. Oblique nondisplaced fracture distal fibular metaphysis sagittal image 47. 1 mm and 2 mm densities posterior to the distal medial tibia unchanged axial image 158 series 3. 3 mm x 1 mm fragment anterior to the distal fibula axial image 147 series 3 and sagittal image 48 which is old. The ankle is in normal anatomic alignment. Soft tissues unremarkable. CT/Extremity Lower without Contra IMPRESSION: Postoperative changes of ORIF trimalleolar fractures of the ankle. The ankle is in normal anatomic alignment. No acute fracture is visualized. Electronically Signed: Isaías Lenz MD at 4:07 EST , Service support ,
[2018-11-21 15:21] LABS: Protein, Urine (Random) 26.7 mg/dL (<11.9); Protein:Creat Ratio 147 mg/g CRE (0-200)
[2018-11-26 11:42] LABS: ANTINUCLEAR ANTIBODIES DIRECT Negative (Negative)
== END ==
PROVIDERS: Family Provider Internal Medicine; PCP Internal Medicine; Referring Provider Specialist; Visit Provider Specialist
DX: N18.3 Chronic kidney disease, stage 3 (moderate) (principal); S82.242D Displaced spiral fracture of shaft of left tibia, subsequent encounter for closed fracture with routine healing
CPT/HCPCS: 36415; 73700; 82570; 84156; 86038; 86225; 86235

== ENCOUNTER → 2018-11-26 11:51 | Outpatient (CLI) | payer MEDICARE, SELFPAY ==
[2018-10-31 11:13] VITALS: BMI 34.8
--- NOTE | 2018-11-26 11:54 | BI_ITS ---
MAMMOGRAPHY - BILATERAL SCREENING REASON FOR EXAM: Female, 48 years old. Routine annual screening examination. PERTINENT HISTORY: Grandmother with breast cancer. TECHNIQUE: Digital bilateral breast linda (3D mammographic acquisition) in the CC and MLO projections. 2-D mediolateral oblique (MLO) and craniocaudad (CC) views of both breasts were obtained. CAD: Full Field Digital Mammography with Computer Added Detection was performed. COMPARISON: Comparison is made with prior examination dated June 16, 2017. FINDINGS: Breast Composition: The breasts are heterogeneously dense, which may obscure small masses. There are no dominant masses or suspicious calcifications. Stable bilateral axillary lymph nodes. No other significant abnormalities are identified. There has been no significant change since the prior study. BI/SCREENING MAMM (CAD), BILAT IMPRESSION: Stable bilateral screening mammogram. Yearly follow-up mammogram recommended. (A) ASSESSMENT CATEGORY: BIRADS Category 2: Benign. A letter regarding these results will be sent to the patient by the facility within 30 days. Approximately 10% of breast cancers are not detected by mammography. A normal mammogram should not delay biopsy of a clinically suspicious abnormality. [id number] Electronically Signed: James Kuhn, at 13:09 EDT , Service support ,
== END ==
PROVIDERS: Family Provider Internal Medicine; PCP Internal Medicine; Referring Provider Nurse Practitioner Women's Health; Visit Provider Nurse Practitioner Women's Health
DX: Z12.31 Encounter for screening mammogram for malignant neoplasm of breast (principal)
CPT/HCPCS: 77063; 77067

== ENCOUNTER → 2019-03-07 16:09 | Outpatient (CLI) | payer MEDICARE, SELFPAY ==
[2018-10-31 11:13] VITALS: BMI 34.8
== END ==
PROVIDERS: Family Provider Internal Medicine; PCP Internal Medicine; Referring Provider Nurse Practitioner Adult Health; Visit Provider Nurse Practitioner Adult Health
DX: R82.998 Other abnormal findings in urine (principal)
CPT/HCPCS: 87077; 87086; 87088

== ENCOUNTER → 2019-03-15 07:20 | Outpatient (CLI) | payer MEDICARE, MEDICAID, SELFPAY ==
[2018-10-31 11:13] VITALS: BMI 34.8
--- NOTE | 2019-03-15 07:23 | CT_ITS ---
STUDY: CT ABDOMEN AND PELVIS WITH AND WITHOUT CONTRAST REASON FOR EXAM: Female, 48 years old. History of renal cell carcinoma RADIATION DOSAGE (If Supplied By Facility): CTDIvol = ( 24.30 ) mGy, DLP = ( 3754.61 ) mGycm TECHNIQUE: Transaxial images were obtained from the dome of the diaphragm to the symphysis pubis without oral contrast. 75 IV Isovue 300 was administered. Sagittal and coronal images were reconstructed. Individualized dose optimization techniques were used for this CT. COMPARISON: 02/07/2019 FINDINGS: The visualized lung bases are unremarkable. The visualized portions of the heart are within normal limits. Normal liver. The gallbladder is surgically absent. Normal spleen. Normal pancreas. Normal bilateral adrenal glands. No hydronephrosis. Surgical defect of the superior mid left kidney stable since the prior study. Nonobstructing calculus of the posterior left kidney as seen on image 26 of series 2, stable. Following IV contrast, there is equal, symmetric enhancement of the kidneys without solid or cystic mass. No perinephric fluid collection or mass. The renal veins are patent. Normal visualized stomach. Normal small intestine. Normal colon. The appendix is visualized and appears normal. Normal abdominal aorta. Normal inferior vena cava. Normal retroperitoneum. Normal urinary bladder. Uterine fibroids are similar since the prior study. Normal abdominal wall. No lytic or sclerotic bone lesions are seen. CT/CT Abd/Pelvis W/WO Contrast IMPRESSION: 1. Since February 07, 2018, stable exam. 2. Partial left nephrectomy. No solid or cystic renal masses. No metastasis. 3. Chronic changes, as above. Electronically Signed: Gianni Muse MD at 12:26 EDT , Service support ,
--- NOTE | 2019-03-15 07:24 | RAD_ITS ---
STUDY: X-RAY CHEST REASON FOR EXAM: Female, 48 years old. Renal cell carcinoma follow-up TECHNIQUE: PA and lateral views of the chest. COMPARISON: February 07, 2018 FINDINGS: The lungs are clear and expanded. There is no demonstrated pleural abnormality. Normal size heart. Normal mediastinum and era. Normal visualized pulmonary arteries. Normal visualized aortic arch and descending thoracic aorta. Normal visualized thoracic spine. Normal visualized ribs, clavicles, and shoulders. There is no demonstrated abnormality of the visualized soft tissue structures of the upper abdomen. RAD/Chest PA and Lateral IMPRESSION: Stable exam. No pulmonary nodule or adenopathy detected. Electronically Signed: Gianni Muse MD at 12:28 EDT , Service support ,
[2019-03-15 07:30] LABS: CREATININE FINGERSTICK 1.2 mg/dL (0.55-1.02)
== END ==
PROVIDERS: Family Provider Internal Medicine; PCP Internal Medicine; Referring Provider Nurse Practitioner Adult Health; Visit Provider Nurse Practitioner Adult Health
DX: Z85.528 Personal history of other malignant neoplasm of kidney (principal)
CPT/HCPCS: 71046; 74178; Q9967

== ENCOUNTER → 2019-04-10 09:03 | Outpatient (CLI) | payer MEDICARE, SELFPAY ==
[2019-04-08 10:39] VITALS: BMI 35.2
[2019-04-10 09:52] LABS: Protein, Urine (Random) 34.3 mg/dL (<11.9); Protein:Creat Ratio 202 mg/g CRE (0-200)
[2019-04-10 11:10] LABS: Cholesterol 171 mg/dL (200); High Density Lipoprotein 43 mg/dL; Triglycerides 148 mg/dL; Very Low Density Lipoprotein 30 mg/dL (5-40)
== END ==
PROVIDERS: Family Provider Internal Medicine; PCP Internal Medicine; Referring Provider Internal Medicine; Visit Provider Internal Medicine
DX: R80.9 Proteinuria, unspecified (principal); N18.3 Chronic kidney disease, stage 3 (moderate)
CPT/HCPCS: 36415; 80061; 82570; 84156

== ENCOUNTER → 2019-05-09 11:08 | Outpatient (CLI) | payer MEDICARE, SELFPAY ==
[2019-04-08 10:39] VITALS: BMI 35.2
[2019-05-09 12:06] LABS: Amphetamine Urine VISTA NEGATIVE (<1000 ng/mL); Barbiturate Urine VISTA NEGATIVE (< 200 ng/mL); Benzodiazepine Urine VISTA NEGATIVE (< 200 ng/mL); Cocaine Urine VISTA NEGATIVE (< 300 ng/mL); Ecstacy Urine VISTA POSITIVE (< 500 ng/mL); Methadone Urine VISTA NEGATIVE (< 300 ng/mL); PCP Urine VISTA NEGATIVE (< 25 ng/mL); THC Urine VISTA NEGATIVE (< 50 ng/mL); Vista UDS pH Range 5
== END ==
PROVIDERS: Family Provider Internal Medicine; PCP Internal Medicine; Referring Provider Anesthesiology Pain Medicine; Visit Provider Anesthesiology Pain Medicine
DX: F11.20 Opioid dependence, uncomplicated (principal)
CPT/HCPCS: 80307

== ENCOUNTER 2019-06-03 06:56 | Day surgery (SDC) | payer MEDICARE, SELFPAY ==
[2019-04-08 10:39] VITALS: BMI 35.2
[2019-06-03 07:15] VITALS: BP 120/83; PULSE 92; RESP 18; TEMP 36.4; O2SAT 96; BMI 35.3
[2019-06-03] MEDS: Lactated Ringers 1,000 ML 75 ML IV (07:30)
--- NOTE | 2019-06-03 07:46 | H&P.OPEN ---
History of Present Illness Date of Admission: 06/03/19 The patient is a 49 year old F presents for a screening colonoscopy. Patient states she had a colonoscopy about 10 years ago for IBS-like symptoms and states it was negative. Patient denies any family history of colon cancer, her father does have liver cancer. Patient states she has bowel movements in a range from daily to once a week, denies any blood. Denies any current abdominal pain, nausea or vomiting. Past Medical/Surgical History - Planned Operation Planned Operative Procedure/s: cscope open access Date of Operative Procedure: 06/03/19 Permit Signed: No S.O.S: No Is This Patient Having a Total Joint: No - Previous Hospitalizations/Surgeries HX Hospitalizations: No HX of Surgeries: cholecystectomy. csection. uterine ablation. kidney stone removals. partial left nephrectomy. orif left ankle im tibial nail left 2017 Any Problems With Anesthesia: No You/Your Family Experience Fever (Hyperthermia) With Anes: No Cholinesterase deficiency: No - Cardiovascular Hx Chest Pain within Last 2 months: No Hx of Irregular Heartbeat and/or Afib: No Hx Heart Attack: No Hx Congestive Heart Failure: No Hx Rheumatic Fever: No Hx Hypertension: No Hx Internal Defibrillator: No Hx Pacemaker: No Hx Cardiac Catheterization: No Hx Cardiac Surgery/Stents/Etc.: No Hx Stress Test: Yes - 2014 [facility] HX Edema: Yes - left leg prn Hx Pain in Legs when Walking/Leg Cramps: Yes - left ankle leg - Respiratory Chronic Cough: No HX of Shortness of Breath: Yes - sob with 2 flights of stairs Hoarseness: No Hx Chronic Obstructive Pulmonary Disease (COPD): No Hx Asthma: No Hx Emphysema: No Hx Sleep Apnea: Yes CPAP: Yes BIPAP: No Hx Oxygen Use at Home: No Hx Respiratory Tract Infection/Cold (presently): No Result (for STOP score): Positive Hx Smoking: No Smoking Status: Never smoker - Gastrointestinal Hx Gastroesophageal Reflux: No - occ heartburn Controlled With Meds: No Hx Gastrointestinal Disorders: Yes - ibs Hx Gastrointestinal Bleed: No Hx Ulcer: No Hx Hiatal Hernia: No Difficulty Chewing/Swallowing: No Recent Onset of Swallowing Problems: No Special diet followed at home: No Hx Unplanned Weight Loss of 20#: No HX Unplanned Weight Gain of 20#: No - Neurological Hx Seizures: Yes - as a child (febrile) HX Syncope/Blackout Spells/Unconsciousness: No Hx CVA/Stroke: No Hx Transient Ischemic Attacks (TIA): No Hx Multiple Sclerosis: No Hx Parkinson's Disease: No Hx Head/Neck Injury: Yes - ddd cervical Hx Headaches: Yes - migraines Hx Back Injury/Pain: Yes - lower back pain/injections in the past Recent Onset of Speech Difficulty: No Restless Legs: No Does patient have nerve stimulator: No Patient instructed to have device shut off: No Rep notified?: No - Blood Disorder Hx Leukemia: No Bleeding Tendencies: No Hx Deep Vein Thrombosis: No Hx High Cholesterol: Yes - on med Blood Transmitted Disease: No Hx Hepatitis: No Hx Cirrhosis: No Hx Anemia: No Hx Blood Disorders: No - Reproduction Is Patient Lactating: No Hx Hysterectomy: No Hx Tubal Ligation: No Are You Post Menopause: Yes - Genitourinary Hx Renal Disease: Yes - kidney cancer/partial nephrectomy Hx Dialysis: No - Musculoskeletal Hx Arthritis: Yes Hx Rheumatoid Arthritis: No Hx Gout: No Recent Onset of an Orthopedic Problem: No - . - Endocrine Hx Diabetes: No Insulin: No Thyroid Disease: No Hx Steroid Therapy: No - . - Psycho/Social Hx Substance Use: No Hx Alcohol Use: No Hx Anxiety: Yes Hx Depression: Yes - on med Mental Illness: No Hx Dementia: No - Miscellaneous Hx Cancer: Yes - kidney cancer Recent Exposure to Contagious Disease: No Active MRSA: No Hx of C-Diff: No Any Loose Teeth: No Allergies norfloxacin [From Noroxin] Allergy (Verified 05/30/19 10:33) Rash Penicillins Allergy (Verified 05/30/19 10:33) Rash tizanidine HCl [From Zanaflex] Allergy (Verified 05/30/19 10:33) Rash sulfamethoxazole Adverse Reaction (Severe, Verified 05/30/19 10:33) diarrhea axetil Adverse Reaction (Severe, Uncoded 05/30/19 10:33) diarreha Maternal Family History: Family History (Last Reviewed 04/08/19 @ 10:37 by Jacqueline Sanchez) Father Cancer Colon cancer Hypertension Hyperlipemia Depression Mother Depression Thyroid disorder Grandmother Breast cancer - - Grandmother from coronary artery disease at age 60-70 Paternal Family History: Family History (Last Reviewed 04/08/19 @ 10:37 by Jacqueline K Canton) Father Cancer Colon cancer Hypertension Hyperlipemia Depression Mother Depression Thyroid disorder Grandmother Breast cancer No pertinent history - Discharge Is Pt Admitted From a Penitentiary, or a [facility]ci: No Who Could Help: family After D/C, Where Do you Plan to Go: Return Home - Physical Exam General: Alert, Oriented x3, Cooperative, No apparent distress HEENT: Atraumatic Lungs: Normal air movement Cardiovascular: Regular rate Abdomen: Soft, Non Tender - No peritoneal signs, Non-Distended Extremities: No clubbing, No cyanosis, No edema Neurological: Cranial nerves II-XII grossly intact Psych/Mental Status: Normal Affect Vital Signs Temp Pulse Resp BP Pulse Ox 97.6 F L 92 18 120/83 H 96 06/03/19 07:15 06/03/19 07:15 06/03/19 07:15 06/03/19 07:15 06/03/19 07:15 Oxygen Delivery Method Room Air Weight: 218 lb 11.177 oz Body Mass Index (BMI) 35.3 Assessment/Plan All Active Problems (Last Reviewed 04/08/19 @ 10:37 by Jacqueline Sanchez) Pathological fracture (Acute) Acute kidney injury (Acute) Kidney stones (Acute) LLL CAP (Acute) 49-year-old female for screening for colon cancer Surgery Risks - Colonoscopy I discussed with the patient the risks of the procedure: Yes Risks Include but are not Limited To: Risks include but are not limited to: Bleeding, perforation requiring further surgery, inability to complete colonoscopy requiring barium enema. Patient no further questions this time.
[2019-06-03 08:47] VITALS: BP 103/69; BP 120/83; PULSE 75; RESP 16; TEMP 36.6; O2SAT 95
[2019-06-03 08:50] VITALS: BP 106/67; BP 120/83; PULSE 73; RESP 16; O2SAT 94
[2019-06-03 08:55] VITALS: BP 109/75; BP 120/83; PULSE 73; RESP 16; O2SAT 92
[2019-06-03 08:58] VITALS: BP 114/73; BP 120/83; PULSE 72; RESP 16; TEMP 36.3; O2SAT 95
[2019-06-03 09:14] VITALS: BP 120/83
--- NOTE | 2019-06-04 09:37 | OP.ENDO_ITS ---
06/04/2019 Sanjay Sims MD [address] [place] [address] [place] [address] Re : Colonoscopy procedure for Judith Hutchison Dear Dr. Sims This procedure was performed on Monday, June 03, 2019. My impressions and recommendations are as follows: Impressions : - Hemorrhoids found on perianal exam. - External and internal hemorrhoids. - The entire examined colon is normal. - No specimens collected. Recommendations : - Discharge patient to home. - High fiber diet. - Continue present medications. - Repeat colonoscopy in 10 years for screening purposes. My findings are described in the full procedure note, which is enclosed. If I can be of further assistance, please feel free to contact me at Doctor phone number(s): , Work: . Sincerely, MD Sophia Crawford MD 06/03/2019 8:52:52 AM This report has been signed electronically.
== END 2019-06-03 09:32 | disposition home or self-care (01) ==
LOC: EN 06:57 → AC 06:59
PROVIDERS: Family Provider Internal Medicine; PCP Internal Medicine; Referring Provider Surgery; Visit Provider Surgery
PROC: 0DJD8ZZ Inspection of Lower Intestinal Tract, Via Natural or Artificial Opening Endoscopic (ICD-10-PCS; CPT 45378; principal; 2019-06-03 07:55)
DX: Z12.11 Encounter for screening for malignant neoplasm of colon (principal); K64.0 First degree hemorrhoids; K64.4 Residual hemorrhoidal skin tags; K58.9 Irritable bowel syndrome, unspecified; F41.9 Anxiety disorder, unspecified; E78.00 Pure hypercholesterolemia, unspecified; M50.30 Other cervical disc degeneration, unspecified cervical region; F32.9 Major depressive disorder, single episode, unspecified; G43.909 Migraine, unspecified, not intractable, without status migrainosus; Z88.0 Allergy status to penicillin; Z88.2 Allergy status to sulfonamides; Z88.1 Allergy status to other antibiotic agents; Z90.5 Acquired absence of kidney; Z85.528 Personal history of other malignant neoplasm of kidney; Z87.442 Personal history of urinary calculi; Z82.49 Family history of ischemic heart disease and other diseases of the circulatory system
CPT/HCPCS: G0121; J7120; J2405

== ENCOUNTER → 2019-10-07 12:52 | Outpatient (CLI) | payer MEDICARE, SELFPAY ==
[2019-10-07 13:39] LABS: Anion Gap 5 (5-15); BUN 13 mg/dL (7-18); BUN/Creat Ratio 10.5 RATIO (10-20); Calcium,Total 9.7 mg/dL (8.5-10.1); Chloride 106 mmol/L (98-107); Creatinine, Serum 1.24 mg/dL (0.55-1.02); EST Glomerular Filtration Rate 48 mL/min (>60); Est Glom Filt Rate - Afr Amer 59 mL/min (>60); Glucose 100 mg/dL (74-106); Sodium Level 140 mmol/L (136-145)
== END ==
PROVIDERS: PCP Internal Medicine; Referring Provider Internal Medicine; Visit Provider Internal Medicine
DX: N18.3 Chronic kidney disease, stage 3 (moderate) (principal)
CPT/HCPCS: 36415; 80048

== ENCOUNTER → 2019-11-25 17:10 | Outpatient (CLI) | payer MEDICARE, SELFPAY ==
[2019-11-25 18:08] LABS: Protein, Urine (Random) 59.3 mg/dL (<11.9); Protein:Creat Ratio 176 mg/g CRE (0-200)
[2019-11-25 18:14] LABS: Albumin, Serum 3.7 g/dL (3.2-5.0); BUN 20 mg/dL (7-18); BUN/Creat Ratio 16.3 RATIO (10-20); Calcium,Total 9.3 mg/dL (8.5-10.1); Chloride 108 mmol/L (98-107); Creatinine, Serum 1.23 mg/dL (0.55-1.02); EST Glomerular Filtration Rate 49 mL/min (>60); Est Glom Filt Rate - Afr Amer 59 mL/min (>60); Glucose 118 mg/dL (74-106); Potassium 3.8 mmol/L (3.5-5.1); Sodium Level 142 mmol/L (136-145)
== END ==
PROVIDERS: Family Provider Internal Medicine; PCP Internal Medicine; Referring Provider Internal Medicine Nephrology; Visit Provider Internal Medicine Nephrology
DX: N18.3 Chronic kidney disease, stage 3 (moderate) (principal); C64.9 Malignant neoplasm of unspecified kidney, except renal pelvis
CPT/HCPCS: 36415; 80069; 82570; 84156

== ENCOUNTER → 2020-02-06 09:54 | Outpatient (CLI) | payer MEDICARE, SELFPAY ==
[2020-02-05 15:21] VITALS: BMI 35.3
--- NOTE | 2020-02-06 10:08 | RAD_ITS ---
STUDY: X-RAY CHEST REASON FOR EXAM: Female, 49 years old. SOB, COUGH TECHNIQUE: PA and lateral views of the chest. COMPARISON: 03/15/2019 FINDINGS: The lungs are clear and expanded. There is no demonstrated pleural abnormality. Normal size heart. Normal mediastinum and era. Normal visualized pulmonary arteries. Normal visualized aortic arch and descending thoracic aorta. Normal visualized thoracic spine. Normal visualized ribs, clavicles, and shoulders. There is no demonstrated abnormality of the visualized soft tissue structures of the upper abdomen. RAD/Chest PA and Lateral IMPRESSION: No acute pulmonary process Electronically Signed: Jarad Nazario MD at 11:54 EDT , Service support ,
== END ==
PROVIDERS: PCP Internal Medicine; Referring Provider Internal Medicine; Visit Provider Internal Medicine
DX: R05 Cough (principal); R06.02 Shortness of breath
CPT/HCPCS: 71046; 87635; G2023; U0004

== ENCOUNTER → 2020-03-26 09:25 | Outpatient (CLI) | payer MEDICARE, SELFPAY ==
[2020-03-13 09:38] VITALS: BMI 35.3
[2020-03-26 09:56] LABS: Absolute Lymphocyte Count 2.54 X10^3/uL (0.83-4.51); Absolute Neutrophil Count 5.4 X10^3/uL (2.0-7.7); Basophil# 0.07 X10^3/uL; Basophil% 0.8 % (0-1); Eosinophil# 0.28 X10^3/uL; Eosinophils% 3.2 % (0-5); Hematocrit 40.8 % (37-47); Hemoglobin 13.4 g/dL (12.0-15.0); Lymphocyte # 2.54 X10^3/ul (4.0); Lymphocyte % 28.9 % (19-41); Mean Corp Hgb Conc 32.8 g/dL (32-36); Mean Corpuscular Hgb 31.6 pg (27.0-32.0); Mean Corpuscular Volume 96.2 fL (81-99); Mean Platelet Vol. 8.3 fl (6.2-12.0); Monocyte# 0.48 X10^3/uL; Monocyte% 5.5 % (0-10); NRBC Flagged by Analyzer 0 % (0-5); Neutrophil # 5.39 X10^3/uL (2.7-7.7); Neutrophil % 61.3 % (47-70); Platelet Count 224 K/mm3 (150-450); RBC Distribution Width CV 12.6 % (11.6-14.6); Red Blood Count 4.24 M/mm3 (4.2-5.4); White Blood Count 8.8 K/mm3 (4.4-11.0)
[2020-03-26 10:34] LABS: ALB/GLOB Ratio 0.8 RATIO (0.9-2.4); AST(SGOT) 21 U/L (15-37); Alanine Aminotransfer ALT/SGPT 30 U/L (13-56); Albumin, Serum 3.7 g/dL (3.2-5.0); Alkaline Phosphatase 147 U/L (45-117); Anion Gap 8 (5-15); BUN 18 mg/dL (7-18); BUN/Creat Ratio 15.5 RATIO (10-20); Chloride 106 mmol/L (98-107); Cholesterol 156 mg/dL (200); Creatinine, Serum 1.16 mg/dL (0.55-1.02); EST Glomerular Filtration Rate 52 mL/min (>60); Est Glom Filt Rate - Afr Amer 63 mL/min (>60); Globulin 4.6 g/dL (2.2-4.2); Glucose 101 mg/dL (74-106); High Density Lipoprotein 36 mg/dL; Potassium 3.8 mmol/L (3.5-5.1); Protein, Total 8.3 g/dL (6.4-8.2); Sodium Level 140 mmol/L (136-145); Triglycerides 188 mg/dL; Very Low Density Lipoprotein 38 mg/dL (5-40)
[2020-03-26 14:08] LABS: Amphetamine Urine VISTA NEGATIVE (<1000 ng/mL); Barbiturate Urine VISTA NEGATIVE (< 200 ng/mL); Benzodiazepine Urine VISTA NEGATIVE (< 200 ng/mL); Cocaine Urine VISTA NEGATIVE (< 300 ng/mL); Ecstacy Urine VISTA POSITIVE (< 500 ng/mL); Methadone Urine VISTA NEGATIVE (< 300 ng/mL); PCP Urine VISTA NEGATIVE (< 25 ng/mL); THC Urine VISTA NEGATIVE (< 50 ng/mL); Vista UDS pH Range 5
== END ==
PROVIDERS: PCP Internal Medicine; Referring Provider Internal Medicine; Visit Provider Internal Medicine
DX: F11.20 Opioid dependence, uncomplicated (principal); E78.5 Hyperlipidemia, unspecified
CPT/HCPCS: 36415; 80053; 80061; 80307; 85025

== ENCOUNTER → 2020-04-06 15:05 | Outpatient (CLI) | payer MEDICARE, SELFPAY ==
[2020-03-30 09:35] VITALS: BMI 35.3
--- NOTE | 2020-04-06 15:10 | BI_ITS ---
MAMMOGRAPHY - BILATERAL SCREENING 3-D TOMOSYNTHESIS REASON FOR EXAM: Female, 49 years old. Routine screening PERTINENT HISTORY: FAM HX MAT GMA AGE 58 -- NO SX -- LT AXILLARY SKIN TAG. TECHNIQUE: 2-D mammograms and 3-D Tomosynthesis of the breast (s) were performed. CAD was performed. COMPARISON: 11/26/2018 FINDINGS: The breast composition is heterogeneously dense that can obscure small breast masses. Scattered benign calcifications are seen. No dense spiculated masses or suspicious microcalcifications are identified. No architectural distortion is identified. There is no skin thickening or retraction. There has been no significant change since the prior study. BI/SCREEN MAMM (CAD) W/IVAN BILAT IMPRESSION: No mammographic signs of malignancy. Routine yearly mammograms recommended. ASSESSMENT CATEGORY: BIRADS Category 2: Benign. A letter regarding these results will be sent to the patient by the facility within 30 days. FOLLOW UP RECOMMENDATION: Yearly follow up mammogram recommended. (A) Approximately 10% of breast cancers are not detected by mammography. A normal mammogram should not delay biopsy of a clinically suspicious abnormality. Electronically Signed: Jarad Nazario MD at 15:56 EDT , Service support ,
== END ==
PROVIDERS: PCP Internal Medicine; Referring Provider Internal Medicine; Visit Provider Internal Medicine
DX: Z12.31 Encounter for screening mammogram for malignant neoplasm of breast (principal)
CPT/HCPCS: 77063; 77067

== ENCOUNTER → 2020-05-12 10:32 | Outpatient (CLI) | payer MEDICARE, SELFPAY ==
[2020-05-12 10:29] VITALS: BMI 35.3
--- NOTE | 2020-05-12 10:33 | RAD_ITS ---
STUDY: X-RAY - LEFT SHOULDER REASON FOR EXAM: Left shoulder pain. TECHNIQUE: 4 view(s) of the shoulder. COMPARISON: None. FINDINGS: Normal glenohumeral articulation. There is mild acromioclavicular arthrosis. Normal acromion. Normal humeral head and visualized proximal humerus. The soft tissue structures are unremarkable. Normal visualized pulmonary apex. RAD/Shoulder min 2 Views IMPRESSION: Mild acromioclavicular arthrosis. Electronically Signed: Sergio Neri MD at 15:16 EDT Tel , Service support ,
--- NOTE | 2020-05-12 10:33 | RAD_ITS ---
STUDY: X-RAY - CERVICAL SPINE REASON FOR EXAM: Female, 49 years old. left arm pain TECHNIQUE: 6 view(s) of the cervical spine were obtained. COMPARISON: 09/26/2017 FINDINGS: Normal anterior atlantoaxial articulation. Normal odontoid process. There is straightening of the normal cervical lordosis. There is multi-level endplate spondylosis. There is multi-level degenerative disc disease with multilevel disc space narrowing. There is left-sided C3-C6, right-sided C3-C4, C5-C6, C6-C7 osseous foraminal stenosis. The soft tissue structures are unremarkable. RAD/Cerv Spine 4 or 5 Views IMPRESSION: Degenerative changes as outlined above, no apparent significant worsening compared to previous examination allowing for change in positioning. There is straightening of the normal lordotic curve, a nonspecific finding, which may be due to positioning or which might be due to muscle spasm. Electronically Signed: Lily Rosales MD at 23:13 EDT , Service support ,
== END ==
PROVIDERS: PCP Internal Medicine; Referring Provider Orthopaedic Surgery; Visit Provider Orthopaedic Surgery
DX: M25.512 Pain in left shoulder (principal); M79.602 Pain in left arm
CPT/HCPCS: 72050; 73030

== ENCOUNTER → 2020-06-10 06:30 | Outpatient (CLI) | payer MEDICARE, SELFPAY ==
[2020-05-12 10:29] VITALS: BMI 35.3
--- NOTE | 2020-06-10 06:31 | MRI_ITS ---
STUDY: MRI LEFT SHOULDER REASON FOR EXAM: Left shoulder pain for 6-8 months, some limited range of motion. TECHNIQUE: Standardized fat and water weighted pulse sequences were obtained in all 3 orthogonal planes. COMPARISON: Radiographs 05/12/2020. FINDINGS: There is mild supraspinatus tendinosis (T2 coronal images 9, 10) without discrete tendon tear. Normal infraspinatus tendon. There is mild subscapularis tendinosis (proton-density axial image 11) without discrete tendon tear. Normal teres minor tendon. Normal supraspinatus muscle. Normal infraspinatus muscle. Normal subscapularis muscle. Normal teres minor muscle. Normal glenohumeral articulation. There is a very small cyst in the posterior aspect of the greater tuberosity. Normal biceps labral complex. There is mild tendinosis of the intracapsular long biceps tendon (T2 coronal image 7). Normal labrum. Normal capsulo- ligamentous complex. There is mild acromioclavicular arthrosis without substantial undersurface osteophytes (T2 sagittal image 8). There is a Type II morphology (curved), with a neutral orientation. There is a trace of subacromial-subdeltoid bursal fluid. Normal visualized coracohumeral and coracoacromial ligaments. Normal deltoid muscle. Normal trapezius muscle. MRI/Upper Ext Joint Only(Routine) IMPRESSION: Mild supraspinatus and subscapularis tendinosis without demonstrated rotator cuff tear. Mild tendinosis of the long biceps tendon. Mild acromioclavicular arthrosis. Electronically Signed: Sergio Neri MD at 8:47 EDT Tel , Service support ,
== END ==
PROVIDERS: PCP Internal Medicine; Referring Provider Orthopaedic Surgery; Visit Provider Orthopaedic Surgery
DX: M75.22 Bicipital tendinitis, left shoulder (principal); M75.42 Impingement syndrome of left shoulder
CPT/HCPCS: 73221

== ENCOUNTER 2020-07-23 11:30 | Outpatient (RCR) | payer MEDICARE, SELFPAY ==
[2020-06-18 14:34] VITALS: BMI 35.3
--- NOTE | 2020-06-25 14:28 | HP.PTEVAL_ITS ---
Patient's Visit Information JOVAN GRANT is a 50 year old F referred to Physical Therapy by Dr. Olivia Rodrigues, DO with a diagnosis of Bicipital Tendonosis. Date of Evaluation: 06/25/20 Physical Therapist: Jeanie Small DPT - Visit Plan Frequency: 2x /Week Duration: 4 Weeks Plan: Focus on scapular s/s and postural correction- Ultrasound as modality - Subjective Patient reports that she has pain in the left shoulder and pain/ numbness/tingling down the left arm- has been happening for about 9 months. Insidious onset- right hand dominate. Pain is located in the anterior shoulder- radiates to the deltoid. Neck pain on the left mid neck radiates to the tip of the acromion and then radiates from the elbow to the mid palm on the lateral aspect of the hand. Neck and elbow pain started first then the shoulder. Sees Dr. Gonzalez for injections- after several injections that did not work- was referred to Dr. Rodrigues. Had an MRI of the shoulder- which showed biceps tendinosis. Recommended surgery or PT- wants to try to PT and see what happens. Had PT for her neck years ago which did not really help. She has had neck pain for 20 years- no MRI's on the neck recently- massage every 3-4 weeks- no chiro. Work: does not working outside of her home- does read a lot- tends to look down when she reads. Numbness and Tingling comes and goes. Worst: 6-7/10. Agg: reaching overhead, reaching behind her back, reaching outside. Eases: ice, Best: 2/10 Average:4/10 with the pain medication from Dr. Gonzalez. Describes the pain as achy unless she irritates it and it throbs and gets really intense throb. 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 Does have migraines and more recently. No blurred vision or dizziness. Thinks she has two seperate issues but is unsure. Sleep: wakes her up and hard to get comfortable- left side sleeper. PMHx: left kidney cancer-partial nephrectomy (2014), fibromyalgia, DDD Meds: see Dr. Rodrigues list- no changes. - Objective Posture: FH, RS, increased kyphosis- can corret but does not maintain. Gait: decreased arm swing and trunk rotation. Palpatoin: tender along upper trap, cervical spine, medial border of the scapula, bicipital groove, anterior deltoid. ROM: WFL in all planes of the cervical and shoulder with pain at end range flexion, abduction and IR behind the back. Strength: cervical isometrics: 4/5 Shoulder: 4/5 with pain in all directions tested Elbow: 4/5, Wrist: 4/5, Pruner: diminished Scap: fair minus. Sensation: WNL to gross touch bilateral UE. Special Test: Dural Signs: positive, Spurlings: positive, Empty Can: positive, Speeds: positive, Neer: positive, Victor Chase: positive - Goals Goal 1:: Patient will be I with HEP and progression Goal Time Frame: 4-6 Weeks Goal 2:: Patient will maintain proper posture t/o tx session to demo increased scap s/s. Goal Time Frame: 4-6 Weeks Goal 3:: Patient will report no pain in the bicipital groove for 1 week Goal Time Frame: 4-6 Weeks - Rehabilitation Potential Physical Therapy Diagnosis: Patient presents with hypomobility- she has multiple symptoms determing driving factor is challenging or both maybe presenting (cervical and bicipital). She has decreased ROM, strength, flex and muscular endurance leading to incresed dural signs and diminished ability to participate in painfree ADL's. Rehabilitation Potential: Good - Anticipated Interventions Patient/Client Instruction: Educate patient on: Benefits of Fitness Program Therapeutic Exercise to Include: Strength training, Endurance training, Body mechanics, Postural training, Dynamic Lumbar Stabilization, Scapular Strength/Stabilization For the Purpose of:: To improve muscle performance and motor function TENS: Yes Cryotherapy (ice pack, ice massage): Yes Thermo therapy (hot pack): Yes Ultrasound (thermal/non thermal): Yes For the Purpose of:: To decrease pain Thank you for the opportunity to evaluate your patient. For Medicare and Medicare HMO plans, please review the plan of care and approve it. It will need to be FAXED BACK to us at [phone] for Medicare purposes. For Medicare only, by signing this I certify the plan of care. Please let me know if there are questions or concerns regarding this plan of care. Physician Signature: Date:
--- NOTE | 2020-07-23 11:54 | HP.PTDCSUM_ITS ---
It has been my pleasure to treat JOVAN GRANT referred by Dr. Olivia Rodrigues DO, with the diagnosis of Bicipital Tendonosis for a total of 9 visit(s). Discharge Date: Please see the following information for a summary of their discharge status. Subjective: Patient reports more and better function. She is able to do more things normally due to less pain. Worst: 3/10 pain at the worst in the last few days in the shoulder itself. Has some pain in her hand but she is use to it. Feels that she is I with exercises and can continue. Left Shoulder Pain Intensity (Out of 10): 2 % Improvement: 80 Objective/Function: Posture: FH, RS, increased kyphosis- can corret and maintain wtih verbal cues. Gait: good arm swing and trunk rotation. Palpatoin: tender along upper trap, cervical spine, medial border of the scapula, bicipital groove, anterior deltoid. ROM: WFL in all planes of the cervical and shoulder with no pain at end range flexion, abduction and IR behind the back. 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 Sensation: WNL to gross touch bilateral UE. Special Test: Dural Signs: positive, Spurlings: positive, Empty Can: positive, Speeds: positive, Neer: positive, Victor Chase: positive Goal 1:: Patient will be I with HEP and progression Goal Progress: Goal Met Goal 2:: Patient will maintain proper posture t/o tx session to demo increased scap s/s. Goal Progress: Goal Met Goal 3:: Patient will report no pain in the bicipital groove for 1 week Goal Progress: Progressing Plan: Discharge to I HEP- gave bands has #2 weights at home. If there are questions or concerns regarding this patient's physical therapy, please feel free to call me at [phone]. Thank you for the referral of this patient. Sincerely, DIANA JimenezT
== END 2020-07-23 12:28 | disposition home or self-care (01) ==
LOC: PT 11:30
PROVIDERS: PCP Internal Medicine; Visit Provider Orthopaedic Surgery
DX: M75.22 Bicipital tendinitis, left shoulder (principal)
CPT/HCPCS: 97035; 97110; 97162; 97164

== ENCOUNTER → 2020-09-02 13:42 | Outpatient (CLI) | payer MEDICARE, SELFPAY ==
[2020-08-26 10:12] VITALS: BMI 34.6
== END ==
PROVIDERS: PCP Internal Medicine; Referring Provider Nurse Practitioner Family; Visit Provider Nurse Practitioner Family
DX: Z20.828 Contact with and (suspected) exposure to other viral communicable diseases (principal)
CPT/HCPCS: 87635; U0003

== ENCOUNTER → 2020-09-14 13:53 | Outpatient (CLI) | payer MEDICARE, SELFPAY ==
[2020-08-26 10:12] VITALS: BMI 34.6
[2020-09-14 15:05] LABS: Amphetamine Urine VISTA NEGATIVE (<1000 ng/mL); Barbiturate Urine VISTA NEGATIVE (< 200 ng/mL); Benzodiazepine Urine VISTA NEGATIVE (< 200 ng/mL); Cocaine Urine VISTA NEGATIVE (< 300 ng/mL); Ecstacy Urine VISTA POSITIVE (< 500 ng/mL); Methadone Urine VISTA NEGATIVE (< 300 ng/mL); PCP Urine VISTA NEGATIVE (< 25 ng/mL); THC Urine VISTA NEGATIVE (< 50 ng/mL)
[2020-09-14 15:52] LABS: Vista UDS pH Range 5
== END ==
PROVIDERS: PCP Internal Medicine; Visit Provider Anesthesiology Pain Medicine
DX: F11.20 Opioid dependence, uncomplicated (principal)
CPT/HCPCS: 80307

== ENCOUNTER → 2020-09-28 11:05 | Outpatient (CLI) | payer MEDICARE, SELFPAY ==
[2020-09-28 10:34] VITALS: BMI 35.4
[2020-09-28 12:47] LABS: Absolute Lymphocyte Count 2.01 X10^3/uL (0.83-4.51); Absolute Neutrophil Count 3.9 X10^3/uL (2.0-7.7); Basophil# 0.05 X10^3/uL; Basophil% 0.7 % (0-1); Hematocrit 39.4 % (37-47); Hemoglobin 12.9 g/dL (12.0-15.0); Lymphocyte # 2.01 X10^3/ul (4.0); Lymphocyte % 30.1 % (19-41); Mean Corp Hgb Conc 32.7 g/dL (32-36); Mean Corpuscular Hgb 31.9 pg (27.0-32.0); Mean Corpuscular Volume 97.3 fL (81-99); Mean Platelet Vol. 8.5 fl (6.2-12.0); Monocyte# 0.44 X10^3/uL; Monocyte% 6.6 % (0-10); NRBC Flagged by Analyzer 0 % (0-5); Neutrophil # 3.93 X10^3/uL (2.7-7.7); Platelet Count 234 K/mm3 (150-450); RBC Distribution Width CV 12.5 % (11.6-14.6); RBC Distribution Width SD 44.8 fl (35.1-43.9); Red Blood Count 4.05 M/mm3 (4.2-5.4); White Blood Count 6.7 K/mm3 (4.4-11.0)
[2020-09-28 13:07] LABS: ALB/GLOB Ratio 0.8 RATIO (0.9-2.4); AST(SGOT) 22 U/L (15-37); Alanine Aminotransfer ALT/SGPT 27 U/L (13-56); Albumin, Serum 3.3 g/dL (3.2-5.0); Alkaline Phosphatase 139 U/L (45-117); Anion Gap 5 (5-15); BUN 12 mg/dL (7-18); BUN/Creat Ratio 11.2 RATIO (10-20); Calcium,Total 8.8 mg/dL (8.5-10.1); Chloride 107 mmol/L (98-107); Creatinine, Serum 1.07 mg/dL (0.55-1.02); EST Glomerular Filtration Rate 57 mL/min (>60); Est Glom Filt Rate - Afr Amer 69 mL/min (>60); Globulin 4.1 g/dL (2.2-4.2); Glucose 95 mg/dL (74-106); Potassium 3.5 mmol/L (3.5-5.1); Protein, Total 7.4 g/dL (6.4-8.2); Sodium Level 141 mmol/L (136-145)
== END ==
PROVIDERS: PCP Internal Medicine; Referring Provider Internal Medicine; Visit Provider Internal Medicine
DX: E78.5 Hyperlipidemia, unspecified (principal); F41.8 Other specified anxiety disorders; M84.40XA Pathological fracture, unspecified site, initial encounter for fracture
CPT/HCPCS: 36415; 80053; 85025

== ENCOUNTER 2020-12-04 15:22 | Outpatient (RCR) | payer MEDICARE, SELFPAY ==
[2020-09-28 10:34] VITALS: BMI 35.4
[2020-12-04] MEDS: COVID-19 VACC, MRNA(PFIZER)/PF 30 MCG/0.3 ML SYRINGE IM (12:48)
[2020-12-25] MEDS: COVID-19 VACC, MRNA(PFIZER)/PF 30 MCG/0.3 ML SYRINGE IM (12:28)
== END 2020-12-04 23:59 ==
LOC: IMMUN 15:22
PROVIDERS: PCP Internal Medicine; Visit Provider Family Medicine
DX: Z23 Encounter for immunization (principal)
CPT/HCPCS: 0001A; 0002A; 91300

== ENCOUNTER → 2020-12-10 14:08 | Outpatient (CLI) | payer MEDICARE, SELFPAY ==
[2020-12-10 13:30] VITALS: BMI 35.5
[2020-12-10 14:12] LABS: Mucous, Urine 0 SEEN /hpf (<or=2+)
[2020-12-10 15:28] LABS: Color, Urine Yellow (Yellow); Glucose, Dipstick Normal (Normal); Ketone-Dipstick 5 mg/dl (Negative); Leukocyte Esterase-Dipstick 500 /ul (Negative); Nitrite-Dipstick Positive (Negative); Occult Blood-Urine 25 /ul (Negative); Protein-Dipstick 15 mg/dl (Negative); Specific Gravity, Urine 1.025 (1.002-1.030); Urine Bilirubin Dipstick Negative (Negative); Urine Clarity Sl. Cloudy (Clear); Urine Urobilinogen Normal (Normal)
[2020-12-10 15:38] LABS: Calcium Oxalate Crystals Ur 1+ /hpf (<or=2+)
[2020-12-10 15:39] LABS: Bacteria 1+ /hpf (None Seen); Red Blood Cells-Urine 0-5 SEEN /hpf (0-5); Squamous Epithelial Cells - UA 0-5 SEEN /hpf (5-10); White Blood Cells 50-100 SEEN /hpf (0-5)
== END ==
PROVIDERS: PCP Internal Medicine; Referring Provider Physician Assistant; Visit Provider Physician Assistant
DX: R30.0 Dysuria (principal)
CPT/HCPCS: 81001; 87086; 87088; 87186

== ENCOUNTER → 2021-03-24 09:27 | Outpatient (CLI) | payer MEDICARE, SELFPAY ==
[2021-03-24 09:04] VITALS: BMI 35.2
[2021-03-24 12:18] LABS: Absolute Lymphocyte Count 2.65 X10^3/uL (0.83-4.51); Absolute Neutrophil Count 5.8 X10^3/uL (2.0-7.7); Basophil# 0.07 X10^3/uL; Basophil% 0.7 % (0-1); Eosinophil# 0.25 X10^3/uL; Eosinophils% 2.7 % (0-5); Hemoglobin 13.8 g/dL (12.0-15.0); Lymphocyte # 2.65 X10^3/ul (0.83-4.51); Lymphocyte % 28.3 % (19-41); Mean Corp Hgb Conc 32.9 g/dL (32-36); Mean Corpuscular Hgb 31.7 pg (27.0-32.0); Mean Corpuscular Volume 96.6 fL (81-99); Mean Platelet Vol. 8.7 fl (6.2-12.0); Monocyte# 0.53 X10^3/uL; Monocyte% 5.7 % (0-10); NRBC Flagged by Analyzer 0 % (0-5); Neutrophil # 5.84 X10^3/uL (2.7-7.7); Neutrophil % 62.2 % (47-70); Platelet Count 263 K/mm3 (150-450); RBC Distribution Width CV 12.6 % (11.6-14.6); RBC Distribution Width SD 44.9 fl (35.1-43.9); Red Blood Count 4.35 M/mm3 (4.2-5.4); White Blood Count 9.4 K/mm3 (4.4-11.0)
[2021-03-24 12:42] LABS: ALB/GLOB Ratio 0.8 RATIO (0.9-2.4); AST(SGOT) 18 U/L (15-37); Alanine Aminotransfer ALT/SGPT 25 U/L (13-56); Albumin, Serum 3.6 g/dL (3.2-5.0); Alkaline Phosphatase 146 U/L (45-117); Anion Gap 6 (5-15); BUN 19 mg/dL (7-18); BUN/Creat Ratio 15.2 RATIO (10-20); Calcium,Total 9.3 mg/dL (8.5-10.1); Chloride 106 mmol/L (98-107); Cholesterol 200 mg/dL (200); Creatinine, Serum 1.25 mg/dL (0.55-1.02); EST Glomerular Filtration Rate 48 mL/min (>60); Est Glom Filt Rate - Afr Amer 58 mL/min (>60); Globulin 4.6 g/dL (2.2-4.2); Glucose 99 mg/dL (74-106); High Density Lipoprotein 43 mg/dL; Potassium 3.7 mmol/L (3.5-5.1); Protein, Total 8.2 g/dL (6.4-8.2); Sodium Level 140 mmol/L (136-145); Thyroid Stim Hormone (TSH) 1.93 uIU/mL (0.358-3.74); Triglycerides 176 mg/dL; Very Low Density Lipoprotein 35 mg/dL (5-40)
== END ==
PROVIDERS: PCP Internal Medicine; Referring Provider Internal Medicine; Visit Provider Internal Medicine
DX: N18.30 Chronic kidney disease, stage 3 unspecified (principal); F32.9 Major depressive disorder, single episode, unspecified; E78.5 Hyperlipidemia, unspecified; L65.9 Nonscarring hair loss, unspecified
CPT/HCPCS: 36415; 80053; 80061; 84443; 85025

== ENCOUNTER → 2021-04-01 16:25 | Outpatient (CLI) | payer MEDICARE, SELFPAY ==
[2021-03-24 09:04] VITALS: BMI 35.2
[2021-04-01 17:56] LABS: Amphetamine Urine VISTA NEGATIVE (<1000 ng/mL); Barbiturate Urine VISTA NEGATIVE (< 200 ng/mL); Benzodiazepine Urine VISTA NEGATIVE (< 200 ng/mL); Cocaine Urine VISTA NEGATIVE (< 300 ng/mL); Ecstacy Urine VISTA POSITIVE (< 500 ng/mL); Methadone Urine VISTA NEGATIVE (< 300 ng/mL); PCP Urine VISTA NEGATIVE (< 25 ng/mL); THC Urine VISTA NEGATIVE (< 50 ng/mL); Vista UDS pH Range 5
== END ==
PROVIDERS: PCP Internal Medicine; Referring Provider Anesthesiology Pain Medicine; Visit Provider Anesthesiology Pain Medicine
DX: F11.20 Opioid dependence, uncomplicated (principal)
CPT/HCPCS: 80307

== ENCOUNTER → 2021-04-05 12:47 | Outpatient (CLI) | payer MEDICARE, SELFPAY ==
[2021-03-24 09:04] VITALS: BMI 35.2
--- NOTE | 2021-04-05 12:49 | CT_ITS ---
STUDY: CT ABDOMEN AND PELVIS WITHOUT CONTRAST REASON FOR EXAM: Female, 50 years old. FU Partial nephrectomy. Renal Mass RADIATION DOSAGE (If Supplied By Facility): CTDIvol = ( 18.97 ) mGy, DLP = ( 957.22 ) mGycm TECHNIQUE: Transaxial images were obtained from the dome of the diaphragm to the symphysis pubis without oral contrast, and without intravenous contrast. Sagittal and coronal images were reconstructed. Individualized dose optimization techniques were used for this CT. COMPARISON: Comparison is made with prior study dated 03/15/2019. FINDINGS: Minimal increased linear markings at the lung bases suggestive of linear atelectasis and/or scarring. The visualized portions of the heart are within normal limits. Normal liver. The patient is status post cholecystectomy. Normal spleen. Normal pancreas. Normal bilateral adrenal glands. Normal right kidney. Once again, postsurgical changes are seen in the upper lateral aspect of the left kidney. There is a 4 mm nonobstructive calculus in the lower pole calyx of the left kidney as well as a tiny calculus in the midpole calyx. Normal visualized stomach. Normal small intestine. Normal colon. The appendix is visualized and appears normal. Normal abdominal aorta. Normal inferior vena cava. Normal retroperitoneum. Normal urinary bladder. Normal abdominal wall. Normal osseous structures. CT/Abdomen/Pelvis without Cont IMPRESSION: Status post surgical resection along the lateral posterior aspect of the upper pole of the left kidney. Nonobstructive left intrarenal calculi. Electronically Signed: James uKhn MD at 15:27 EDT , Service support ,
== END ==
PROVIDERS: PCP Internal Medicine; Referring Provider Internal Medicine; Visit Provider Internal Medicine
DX: N18.30 Chronic kidney disease, stage 3 unspecified (principal); Z85.528 Personal history of other malignant neoplasm of kidney
CPT/HCPCS: 74176

== ENCOUNTER → 2021-04-09 12:09 | Outpatient (CLI) | payer MEDICARE, SELFPAY ==
[2021-03-24 09:04] VITALS: BMI 35.2
--- NOTE | 2021-04-09 12:10 | BI_ITS ---
MAMMOGRAPHY - BILATERAL SCREENING REASON FOR EXAM: Female, 50 years old. Routine annual screening examination. PERTINENT HISTORY: Aunt with breast cancer. TECHNIQUE: Digital bilateral breast ivan (3D mammographic acquisition) in the CC and MLO projections. 2-D mediolateral oblique (MLO) and craniocaudad (CC) views of both breasts were obtained. CAD: Full Field Digital Mammography with Computer Added Detection was performed. COMPARISON: Comparison is made with prior examination dated 04/06/2020 and 11/26/2018. FINDINGS: Breast Composition: The breasts are heterogeneously dense, which may obscure small masses. There are no dominant masses or suspicious calcifications. Stable small benign appearing bilateral axillary No other significant abnormalities are identified. There has been no significant change since the prior study. BI/SCRN MAMM (CAD)W/IVAN BILAT IMPRESSION: Stable bilateral screening mammogram. Yearly follow-up mammogram recommended. (A) ASSESSMENT CATEGORY: BIRADS Category 2: Benign. A letter regarding these results will be sent to the patient by the facility within 30 days. Approximately 10% of breast cancers are not detected by mammography. A normal mammogram should not delay biopsy of a clinically suspicious abnormality. [id number] Electronically Signed: James Kuhn MD at 13:20 EDT , Service support ,
== END ==
PROVIDERS: PCP Internal Medicine; Referring Provider Internal Medicine; Visit Provider Internal Medicine
DX: Z12.31 Encounter for screening mammogram for malignant neoplasm of breast (principal); Z80.3 Family history of malignant neoplasm of breast
CPT/HCPCS: 77063; 77067

== ENCOUNTER → 2021-05-18 14:17 | Outpatient (CLI) | payer MEDICARE, SELFPAY ==
[2021-05-18 17:47] LABS: Absolute Lymphocyte Count 2.05 X10^3/uL (0.83-4.51); Absolute Neutrophil Count 5.4 X10^3/uL (2.0-7.7); Basophil# 0.06 X10^3/uL; Basophil% 0.7 % (0-1); Eosinophil# 0.27 X10^3/uL; Eosinophils% 3.3 % (0-5); Hematocrit 38.9 % (37-47); Hemoglobin 12.8 g/dL (12.0-15.0); Lymphocyte # 2.05 X10^3/ul (0.83-4.51); Lymphocyte % 24.8 % (19-41); Mean Corp Hgb Conc 32.9 g/dL (32-36); Mean Corpuscular Hgb 31.3 pg (27.0-32.0); Mean Corpuscular Volume 95.1 fL (81-99); Mean Platelet Vol. 8.5 fl (6.2-12.0); Monocyte# 0.43 X10^3/uL; Monocyte% 5.2 % (0-10); NRBC Flagged by Analyzer 0 % (0-5); Neutrophil # 5.42 X10^3/uL (2.7-7.7); Neutrophil % 65.4 % (47-70); Platelet Count 237 K/mm3 (150-450); RBC Distribution Width CV 12.1 % (11.6-14.6); RBC Distribution Width SD 42.5 fl (35.1-43.9); Red Blood Count 4.09 M/mm3 (4.2-5.4); White Blood Count 8.3 K/mm3 (4.4-11.0)
[2021-05-18 18:23] LABS: ALB/GLOB Ratio 0.9 RATIO (0.9-2.4); AST(SGOT) 21 U/L (15-37); Alanine Aminotransfer ALT/SGPT 25 U/L (13-56); Albumin, Serum 3.8 g/dL (3.2-5.0); Alkaline Phosphatase 134 U/L (45-117); Anion Gap 5 (5-15); BUN 14 mg/dL (7-18); BUN/Creat Ratio 13.5 RATIO (10-20); Calcium,Total 9.2 mg/dL (8.5-10.1); Chloride 105 mmol/L (98-107); Creatinine, Serum 1.04 mg/dL (0.55-1.02); EST Glomerular Filtration Rate 59 mL/min (>60); Est Glom Filt Rate - Afr Amer 71 mL/min (>60); Ferritin 83 ng/mL (8-252); Globulin 4.4 g/dL (2.2-4.2); Glucose 99 mg/dL (74-106); Potassium 3.6 mmol/L (3.5-5.1); Protein, Total 8.2 g/dL (6.4-8.2); Sodium Level 140 mmol/L (136-145); Thyroid Stim Hormone (TSH) 0.77 uIU/mL (0.358-3.74)
[2021-05-20 09:25] LABS: Thyroid Peroxidase AB 8 IU/mL (0-34)
[2021-05-20 20:52] LABS: Anti-Nuclear Antibody Test Negative (.)
== END ==
PROVIDERS: PCP Internal Medicine; Referring Provider Physician Assistant; Visit Provider Physician Assistant
DX: L65.9 Nonscarring hair loss, unspecified (principal); L65.0 Telogen effluvium
CPT/HCPCS: 36415; 80053; 82728; 84443; 85025; 86038; 86376

== ENCOUNTER → 2021-08-27 15:59 | Outpatient (CLI) | payer MEDICARE, SELFPAY ==
[2021-08-27 16:10] LABS: Mucous, Urine 0 SEEN /hpf (<or=2+)
[2021-08-27 16:38] LABS: Color, Urine Yellow (Yellow); Glucose, Dipstick Normal (Normal); Ketone-Dipstick 5 mg/dl (Negative); Leukocyte Esterase-Dipstick 500 /ul (Negative); Nitrite-Dipstick Negative (Negative); Occult Blood-Urine 50 /ul (Negative); Protein-Dipstick 30 mg/dl (Negative); Specific Gravity, Urine 1.025 (1.002-1.030); Urine Clarity Cloudy (Clear); Urine Urobilinogen 1 mg/dl (Normal)
[2021-08-27 16:46] LABS: Urine Bilirubin Dipstick 1 mg/dL (Negative)
[2021-08-27 16:47] LABS: Calcium Oxalate Crystals Ur 1+ /hpf (<or=2+)
[2021-08-27 16:48] LABS: Squamous Epithelial Cells - UA 10-25 SEEN /hpf (5-10); White Blood Cells 10-25 SEEN /hpf (0-5)
[2021-08-27 16:49] LABS: Bacteria RARE /hpf (None Seen); Red Blood Cells-Urine 0-5 SEEN /hpf (0-5)
== END ==
PROVIDERS: PCP Internal Medicine; Referring Provider Physician Assistant; Visit Provider Physician Assistant
DX: R10.9 Unspecified abdominal pain (principal); N20.0 Calculus of kidney; N18.30 Chronic kidney disease, stage 3 unspecified; Z85.528 Personal history of other malignant neoplasm of kidney
CPT/HCPCS: 81001; 82360; 87086; 87088

== ENCOUNTER 2021-08-27 16:15 | Emergency (ER) | payer MEDICARE, SELFPAY ==
[2021-08-27 16:16] VITALS: BP 123/71; PULSE 92; RESP 18; TEMP 36.6; O2SAT 96; BMI 36.1
--- NOTE | 2021-08-27 16:30 | CT_ITS ---
STUDY: CT Abdomen And Pelvis W/O Contrast Injection 08/27/2021 5:51 PM REASON FOR EXAM: Female, 51 years old. ABDOMINAL PAIN left flank pain TECHNIQUE: Transaxial images were obtained without oral contrast, and without intravenous contrast. Individualized dose optimization techniques were used for this CT. COMPARISON: 04/05/2021 FINDINGS: The visualized lung bases are unremarkable. The visualized portions of the heart are within normal limits. Normal liver. There is non-visualization of the gallbladder, which may be secondary to either contraction or a prior cholecystectomy. Normal spleen. Normal pancreas. Normal bilateral adrenal glands. No acute findings of the right kidney. Mild hydronephrosis caused by left 3.5 mm distal ureteral stone. Non obstructive 1 to 2 mm left renal parenchymal stones. Normal visualized stomach. Normal small intestine. Stool throughout the colon. There is non-visualization of the appendix. There is a duodenal diverticulum. This is near the pancreatic head. There is moderate diffuse narrowing. Normal inferior vena cava. Subcentimeter mesenteric lymph nodes. Normal urinary bladder. The uterus is lobulated in contour. This is consistent for a fibroid/ myomatous uterus. Normal abdominal wall. Normal osseous structures. IMPRESSION: (NOT LISTED IN ORDER OF SIGNIFICANCE) Fibroid uterus. Mild hydronephrosis caused by left 3.5 mm distal ureteral stone. Other findings as above. Electronically Signed: Good Cadena MD at 17:53 EST , Service support , CT/Abdomen/Pelvis without Cont
--- NOTE | 2021-08-27 16:32 | EDS_ITS ---
HPI History of Present Illness Chief Complaint: Flank Pain Detail of Chief Complaint: Left flank pain off-and-on for 1 week Informant: patient Narrative Narrative: Patient presents to the emergency department complaint of left flank pain that she has had off and on for a week. Patient states that it really became more severe today. She was seen in her primary care physician's office where she attempted to give a urine sample and she passed the stone at that time. The stone was sent for analysis and measured to be about 4 mm. Patient continues to have discomfort and was referred to the emergency department. She does have history of calcium oxalate kidney stones. Patient denies fever. She denies dysuria. She has nausea but no vomiting. Prior similar symptoms: Yes PFSH PFSH Medical History Anxiety Anxiety and depression Chronic neck and back pain CKD (chronic kidney disease), stage III Degenerative disc disease Depression Fibromyalgia GERD (gastroesophageal reflux disease) Hair loss Health care maintenance History of renal carcinoma Hx of renal cell cancer Hypercholesterolemia Hyperlipemia IBS (irritable bowel syndrome) Kidney stones Knee pain Neuropathy CORTEZ (obstructive sleep apnea) Severe headache Stage 3 chronic kidney disease Home Medications cyclobenzaprine 10 mg tablet 10 mg PO BID PRN tab 01/11/18 [History Last Taken Unknown] rizatriptan 10 mg tablet 10 mg PO QDAY PRN tab 01/11/18 [History Last Taken Unk nown] trazodone 100 mg tablet 300 mg PO QHS tab 01/11/18 [History Last Taken Unknown] gabapentin 300 mg capsule 900 mg PO QHS 04/16/18 [History Last Taken 05/30/18 08:00] propranolol 10 mg tablet 10 mg PO BID 05/07/18 [History Last Taken 06/03/19] gabapentin 300 mg PO BID 05/26/18 [History Last Taken 06/03/19] promethazine 25 mg PO Q8H PRN PRN 05/26/18 [History Last Taken Unknown] fluticasone propionate 50 mcg/actuation nasal spray,suspension 1 spray INTRANASAL BID #47.4 g 08/22/19 [Rx Last Taken Unknown] buspirone 10 mg tablet 10 mg PO tab 05/12/20 [History Last Taken Unknown] hydrocodone-acetaminophen 5-325mg 5mg-325mg PO 05/12/20 [History Last Taken Unknown] duloxetine 30 mg capsule,delayed release 30 mg PO DAILY 12/10/20 [History Last Taken Unknown] duloxetine 60 mg capsule,delayed release 60 mg PO DAILY 12/10/20 [History Last Taken Unknown] atorvastatin 20 mg tablet 20 mg PO QDAY #90 tab 02/10/21 [Rx Last Taken Unknown] cephalexin 500 mg PO Q6 #28 capsule 08/27/21 [Rx Last Taken Unknown] hydrocodone-acetaminophen 1 tab PO Q4H PRN PRN 2 Days #10 tablet 08/27/21 [Rx Last Taken Unknown] ondansetron 4 mg PO Q8H PRN PRN #10 tab 08/27/21 [Rx Last Taken Unknown] Allergy/AdvReac Type Severity Reaction Status Date / Time norfloxacin [From Noroxin] Allergy Rash Verified 08/27/21 16:15 Penicillins Allergy Rash Verified 08/27/21 16:15 tizanidine HCl Allergy Rash Verified 08/27/21 16:15 [From Zanaflex] sulfamethoxazole AdvReac Severe diarrhea Verified 08/27/21 16:15 axetil AdvReac Severe diarreha Uncoded 08/27/21 16:15 Family History Father Cancer liver Colon cancer Hypertension Hyperlipemia Depression Mother Depression Thyroid disorder Grandmother Breast cancer Surgical History c section delivery delivered H/O partial nephrectomy History of cholecystectomy History of orthopedic surgery kidney stone surgery uterine ablation Social History Smoking Status: Never smoker alcohol intake: never substance use type: does not use caffeine: Yes what type of physical activity do you participate in: none seatbelt use: always do you feel safe at home: Yes additional social history: [employer]- Self Employed Patient is unemployed [facility] ED Constitutional Constitutional ED: Reports systems reviewed and no addt'l complaints, except as documented; Denies body ache(s), change in weight or chills Eyes Eyes: Denies acute decrease in peripheral vision, change in vision, double vision or loss of vision ENT ENT ED: Reports none; Denies ear pain, lip swelling, loss taste/smell, neck pain, otalgia or sore throat Cardiovascular Cardiovascular: Reports none; Denies abdominal pain, chest pain with activity, leg edema, lightheadedness, palpitations, rapid heart rate or syncope Respiratory/Chest Respiratory/Chest: Reports none; Denies change in mental status, dry cough, dyspnea, hemoptysis, shortness of breath at rest or shortness of breath with exertion Gastrointestinal Gastrointestinal: Reports none; Denies abdominal pain, change in stool character, diarrhea, hematemesis, hematochezia, melena, rectal bleeding or vomiting Genitourinary Genitourinary ED: Reports none; Denies abdominal discomfort, anuria, dysuria, genital pain or polyuria Musculoskeletal Musculoskeletal: Reports none and back pain; Denies arthralgias, difficulty walking, extremity pain, muscle weakness or myalgias Integumentary Reports none; Denies abscess or rash Neurologic Neurologic: Reports none; Denies abnormal gait, confusion, focal weakness, frequent falls, headache(s), loss of vision, numbness, paresthesias, radicular pain, vertigo or weakness Psychiatric Psychiatric: Reports systems reviewed and no addt'l complaints, except as documented and none; Denies behavioral changes, confusion, difficulty concentrating, hallucinations, suicidal ideation, tactile hallucinations or visual hallucinations Endocrine Endocrinology: Denies none, cold intolerance, excessive sweating, fatigue or heat intolerance Hematologic/Lymphatic Hematologic/Lymphatic: Reports none; Denies anemia, easy bleeding or easy bruising Allergic/Immunologic Allergic/Immunologic ED: Denies as per HPI, none, lip swelling, mouth swelling, throat swelling, tongue swelling or hives EXAM Physical Exam Const Vital Signs: 08/27/21 16:16 08/27/21 18:54 Temperature 97.8 F Temperature Source Temporal Pulse Rate 92 82 Respiratory Rate 18 16 Blood Pressure 123/71 H 117/67 Blood Pressure Mean 88 83 Pulse Ox 96 Oxygen Delivery Method Room Air Room Air Positive well nourished and well developed General Appearance ED: well developed and NAD HEENT Reports TM's clear and moist mucous membranes normocephalic and atraumatic; Negative for trauma or tenderness Tympanic Membrane ED: Yes TM's clear Eyes PERRL and EOMs intact bilaterally General Eye ED: Negative for pale conjunctiva or scleral icterus Neck no lymphadenopathy, supple and no JVD General: Negative for tenderness Chest Wall inspection of chest normal and palpation of chest normal Chest: Negative for tenderness Resp normal respiratory effort and clear to auscultation bilaterally Effort and Inspection: Negative for respiratory distress or pain with movement Auscultation: Negative for rhonchi, wheezes or diminished lung sounds Cardio regular rate, regular rhythm, S1 normal heart sound, S2 normal heart sound and no murmurs Peripheral Pulses: pulses 2+ throughout GI normal to inspection, nondistended, normoactive bowel sounds, soft to palpation, non-tender, non-distended and no masses Back/Spine no thoracic nor lumbar tenderness Back/Spine Narrative: Left CVA tenderness on exam. Extremity normal to inspection General Extremety ED: Negative for edema General Extremity: Negative for edema Neuro oriented x3, CN's II-XII intact bilaterally, no sensory deficits noted and gait normal Sensorium / Orientation: awake, alert, oriented to person, oriented to place and oriented to time Motor Exam: strength 5/5 throughout and strength abnormal Psych mental status grossly normal Skin no rashes or lesions noted and no wounds MDM MDM MDM Narrative Medical decision making narrative: IV line established on arrival. Patient was medicated morphine, Zofran, and Toradol. He had to be given a second dose of morphine for ongoing pain. Patient noted to have a 3.5 mm stone at the left distal ureter. Given the size is felt patient will likely passed this. Should be given a prescription for Banner and urine strainers. Patient also given a prescription for Zofran. She has seen urology in the past and she will be advised to follow-up with their office. Patient to return if increasing pain, vomiting, fevers, or condition should worsen anyway. Lab Data Attestation: I reviewed the patient's lab results. Labs: Laboratory Results - last 24 hr 08/27/21 08/27/21 08/27/21 15:27 15:27 19:34 WBC 7.0 RBC 3.91 L Hgb 12.1 Hct 36.8 L MCV 94.1 MCH 30.9 MCHC 32.9 RDW Std Deviation 44.0 H RDW Coeff of [place] 12.8 Plt Count 203 MPV 8.4 Immature Gran % (Auto) 0.400 Neut % (Auto) 56.6 Lymph % (Auto) 31.3 [place] % (Auto) 6.0 Eos % (Auto) 5.1 H Baso % (Auto) 0.6 Absolute Neuts (auto) 4.0 Absolute Lymphs (auto) 2.20 Nucleated RBC % 0 Sodium 145 Potassium 3.7 Chloride 109 H Carbon Dioxide 32.0 Anion Gap 4 L BUN 12 Creatinine 1.39 H Estim Creat Clear Calc 43.82 Est GFR (MDRD) Af Amer 51 L Est GFR (MDRD) Non-Af 42 L BUN/Creatinine Ratio 8.6 L Glucose 107 H Calcium 9.1 Urine Color Yellow Urine Clarity Clear Urine pH 5.0 Ur Specific [place] 1.020 Urine Protein 30 H Urine Glucose (UA) Normal Urine Ketones 5 H Urine Occult Blood 150 H Urine Nitrite Negative Urine Bilirubin 1 H Urine Urobilinogen 4 H Ur Leukocyte Esterase 500 H Urine RBC 0-5 SEEN Urine WBC 10-25 SEEN Ur Squamous Epith Cells 0-5 SEEN Calcium Oxalate Crystal 1+ Urine Bacteria RARE Hyaline Casts 0-5 SEEN Urine Mucus RARE Radiography Diagnostic Testing: Clinical Impression(s) from Imaging Studies Abdomen/Pelvis CT 08/27/21 16:30 Discharge Plan Triage Chief Complaint: Flank Pain ED Provider: Rhonda Garces Dx/Rx/DC Orders Clinical Impression: Urolithiasis, UTI (urinary tract infection) Instructions: Kidney Stones Expectant Tx, ED CYSTITIS Female Adult Prescriptions: New hydrocodone-acetaminophen [hydrocodone-acetaminophen] 1 TABLET tablet 1 tab PO Q4H PRN PRN (Reason: Pain) 2 Days Qty: 10 RF: 0 ondansetron [ondansetron] 4 MG tablet 4 mg PO Q8H PRN PRN (Reason: Nausea) Qty: 10 RF: 0 cephalexin [cephalexin] 500 MG capsule 500 mg PO Q6 Qty: 28 RF: 0 No Action rizatriptan [Maxalt] 10 mg tablet 10 mg PO QDAY PRN (Reason: migraines) RF: 0 cyclobenzaprine 10 mg tablet 10 mg PO BID PRN (Reason: muscle spasms) RF: 0 propranolol 10 mg tablet 10 mg PO BID RF: 0 hydrocodone-acetaminophen 5-325 mg tablet PO RF: 0 buspirone 10 mg tablet 10 mg PO RF: 0 duloxetine [Cymbalta] 30 mg capsule,delayed release(DR/EC) 30 mg PO DAILY RF: 0 duloxetine [Cymbalta] 60 mg capsule,delayed release(DR/EC) 60 mg PO DAILY RF: 0 trazodone 100 mg tablet 300 mg PO QHS RF: 0 gabapentin 300 mg capsule 900 mg PO QHS RF: 0 promethazine 25 MG tablet 25 mg PO Q8H PRN PRN (Reason: Nausea) RF: 0 gabapentin 300 MG capsule 300 mg PO BID RF: 0 fluticasone propionate 50 mcg/actuation spray,suspension 1 spray INTRANASAL BID Qty: 47.4 RF: 1 atorvastatin 20 mg tablet 20 mg PO QDAY Qty: 90 RF: 3 Primary Care Provider: Sanjay Sims Referrals: Sanjay Sims MD [Primary Care Provider] - Kofi Crouch MD [STAFF PHYSICIAN] - 3-5 Days
[2021-08-27] MEDS: Ondansetron 4 MG/2 ML Vial IV (17:27)
[2021-08-27] MEDS: 0.9% Normal Saline 1,000 ML 150 ML IV (17:27)
[2021-08-27] MEDS: Morphine 4 MG/ML Syringe IV ×2 (17:28→18:53)
[2021-08-27] MEDS: Ketorolac 15 MG/ML Vial IV (17:28)
[2021-08-27 17:37] LABS: Basophil# 0.04 X10^3/uL; Basophil% 0.6 % (0-1); Eosinophil# 0.36 X10^3/uL; Eosinophils% 5.1 % (0-5); Hematocrit 36.8 % (37-47); Hemoglobin 12.1 g/dL (12.0-15.0); Lymphocyte % 31.3 % (19-41); Mean Corp Hgb Conc 32.9 g/dL (32-36); Mean Corpuscular Hgb 30.9 pg (27.0-32.0); Mean Corpuscular Volume 94.1 fL (81-99); Mean Platelet Vol. 8.4 fl (6.2-12.0); Monocyte# 0.42 X10^3/uL; NRBC Flagged by Analyzer 0 % (0-5); Neutrophil # 3.99 X10^3/uL (2.7-7.7); Neutrophil % 56.6 % (47-70); Platelet Count 203 K/mm3 (150-450); RBC Distribution Width CV 12.8 % (11.6-14.6); Red Blood Count 3.91 M/mm3 (4.2-5.4)
[2021-08-27 17:46] LABS: Anion Gap 4 (5-15); BUN 12 mg/dL (7-18); BUN/Creat Ratio 8.6 RATIO (10-20); Calcium,Total 9.1 mg/dL (8.5-10.1); Chloride 109 mmol/L (98-107); Creatinine, Serum 1.39 mg/dL (0.55-1.02); EST Glomerular Filtration Rate 42 mL/min (>60); Est Glom Filt Rate - Afr Amer 51 mL/min (>60); Estimated Creatinine Clearance 43.82 ml/min; Glucose 107 mg/dL (74-106); Potassium 3.7 mmol/L (3.5-5.1); Sodium Level 145 mmol/L (136-145)
[2021-08-27 18:54] VITALS: BP 117/67; PULSE 82; RESP 16
[2021-08-27] MEDS: DiphenhydrAMINE 50 MG/ML Syringe 25 MG IV (19:14)
[2021-08-27 19:44] LABS: Color, Urine Yellow (Yellow); Glucose, Dipstick Normal (Normal); Ketone-Dipstick 5 mg/dl (Negative); Leukocyte Esterase-Dipstick 500 /ul (Negative); Nitrite-Dipstick Negative (Negative); Occult Blood-Urine 150 /ul (Negative); Protein-Dipstick 30 mg/dl (Negative); Urine Clarity Clear (Clear); Urine Urobilinogen 4 mg/dl (Normal)
[2021-08-27 19:46] LABS: Urine Bilirubin Dipstick 1 mg/dL (Negative)
[2021-08-27 19:57] LABS: Hyaline Cast 0-5 SEEN /lpf (0-5); White Blood Cells 10-25 SEEN /hpf (0-5)
[2021-08-27 19:58] LABS: Bacteria RARE /hpf (None Seen); Calcium Oxalate Crystals Ur 1+ /hpf (<or=2+); Red Blood Cells-Urine 0-5 SEEN /hpf (0-5); Squamous Epithelial Cells - UA 0-5 SEEN /hpf (5-10)
[2021-08-27 19:59] LABS: Mucous, Urine RARE /hpf (<or=2+)
[2021-08-27] MEDS: Cephalexin 250 MG Capsule 500 MG PO (20:15)
== END 2021-08-27 20:23 | disposition home or self-care (01) ==
LOC: ED 16:38
PROVIDERS: Emergency Provider Emergency Medicine; PCP Internal Medicine
DX: N39.0 Urinary tract infection, site not specified (principal); N20.9 Urinary calculus, unspecified; E78.00 Pure hypercholesterolemia, unspecified; E78.5 Hyperlipidemia, unspecified; F32.A Depression, unspecified; F41.9 Anxiety disorder, unspecified; G47.33 Obstructive sleep apnea (adult) (pediatric); G62.9 Polyneuropathy, unspecified; K21.9 Gastro-esophageal reflux disease without esophagitis; K58.9 Irritable bowel syndrome, unspecified; N18.30 Chronic kidney disease, stage 3 unspecified; Z56.0 Unemployment, unspecified; Z85.528 Personal history of other malignant neoplasm of kidney
CPT/HCPCS: 74176; 80048; 81001; 82360; 85025; 87086; 87088; 96361; 96374; 96375; 96376; 99285; J7030; A4216; J2405

== ENCOUNTER 2021-08-31 10:25 | Day surgery (SDC) | payer MEDICARE, SELFPAY ==
[2021-08-31 10:57] VITALS: BP 120/67; PULSE 71; RESP 18; TEMP 36.7; O2SAT 96; BMI 36.2
[2021-08-31] MEDS: Lactated Ringers 1,000 ML 15 ML IV (11:38)
[2021-08-31] MEDS: Lidocaine Jelly 2% 20 ML Syringe (URO-JET) 20 APPLIC (12:42)
[2021-08-31] MEDS: Lubricating Jelly 60 GM Tube 30 GM (12:47)
--- NOTE | 2021-08-31 12:59 | PCM.HP.STD ---
HPI - General HPI Narrative JOVAN GRANT, is a 51 F who presents Obstructing stone in the distal left ureter causing severe pain nausea vomiting presents today for placement of a stent PFSH Medical History (Updated 08/30/21 @ 17:12 by Maylin Stokes) Anxiety Anxiety and depression Bipolar disorder Blackout Cancer Chronic neck and back pain CKD (chronic kidney disease), stage III CPAP (continuous positive airway pressure) dependence Degenerative disc disease Depression Fibromyalgia Gastric reflux GERD (gastroesophageal reflux disease) Hair loss Health care maintenance History of edema History of IBS History of renal carcinoma Hx of renal cell cancer Hypercholesterolemia Hyperlipemia IBS (irritable bowel syndrome) Kidney stones Knee pain Migraine headache Neuropathy Non-smoker CORTEZ (obstructive sleep apnea) PONV (postoperative nausea and vomiting) Seizures Severe headache Shortness of breath on exertion Sleep apnea Stage 3 chronic kidney disease Home Medications cyclobenzaprine 10 mg tablet 10 mg PO QHS tab 01/11/18 [History Last Taken Unknown] rizatriptan 10 mg tablet 10 mg PO QDAY PRN tab 01/11/18 [History Last Taken Unknown] trazodone 100 mg tablet 300 mg PO QHS tab 01/11/18 [History Last Taken Unknown] gabapentin 300 mg capsule 900 mg PO QHS 04/16/18 [History Last Taken 05/30/18 08:00] propranolol 10 mg tablet 10 mg PO BID 05/07/18 [History Last Taken 08/31/21 07:30] gabapentin 300 mg PO BID 05/26/18 [History Last Taken 06/03/19] promethazine 25 mg PO Q8H PRN PRN 05/26/18 [History Last Taken Unknown] buspirone 10 mg tablet 10 mg PO BID tab 05/12/20 [History Last Taken Unknown] duloxetine 30 mg capsule,delayed release 30 mg PO QHS 12/10/20 [History Last Taken Unknown] duloxetine 60 mg capsule,delayed release 60 mg PO QHS 12/10/20 [History Last Taken Unknown] cephalexin 500 mg PO Q6 #28 capsule 08/27/21 [Rx Last Taken Unknown] hydrocodone-acetaminophen 1 tab PO Q4H PRN PRN 2 Days #10 tablet 08/27/21 [Rx Last Taken Unknown] ondansetron 4 mg PO Q8H PRN PRN #10 tab 08/27/21 [Rx Last Taken Unknown] atorvastatin 20 mg PO QHS 08/30/21 [History Last Taken Unknown] fluticasone propionate 1 spray INTRANASAL BID PRN 08/30/21 [History Last Taken Unknown] cephalexin 500 mg PO BID #10 cap 08/31/21 [Rx Last Taken Unknown] oxycodone-acetaminophen 1 tab PO Q4H PRN 7 Days #20 tab 08/31/21 [Rx Last Taken Unknown] phenazopyridine [Pyridium] 100 mg PO TID PRN 6 Days #20 tab 08/31/21 [Rx Last Taken Unknown] Allergy/AdvReac Type Severity Reaction Status Date / Time norfloxacin [From Noroxin] Allergy Rash Verified 08/31/21 10:52 Penicillins Allergy Rash Verified 08/31/21 10:52 tizanidine HCl Allergy Rash Verified 08/31/21 10:52 [From Zanaflex] sulfamethoxazole AdvReac Severe diarrhea Verified 08/31/21 10:52 axetil AdvReac Severe diarreha Uncoded 08/31/21 10:52 Family History Father Cancer liver Colon cancer Hypertension Hyperlipemia Depression Mother Depression Thyroid disorder Grandmother Breast cancer Surgical History c section delivery delivered H/O partial nephrectomy History of cholecystectomy History of orthopedic surgery kidney stone surgery uterine ablation Social History Smoking Status: Never smoker alcohol intake: never substance use type: does not use caffeine: Yes what type of physical activity do you participate in: none seatbelt use: always do you feel safe at home: Yes additional social history: [employer]- Self Employed Patient is unemployed Vital Signs Vital Signs Vital Signs: 08/31/21 10:53 08/31/21 10:57 Temperature 98.0 F Temperature Source Temporal Pulse Rate 71 Respiratory Rate 18 Respiratory Pattern Normal Blood Pressure 120/67 Blood Pressure Mean 84 Blood Pressure Source Monitor Blood Pressure Position Semi-Fowlers Blood Pressure Location Left Arm Pulse Ox 96 Oxygen Delivery Method Room Air Weight Weight: 101.877 kg Body Mass Index (BMI) 36.2
--- NOTE | 2021-08-31 12:59 | PCM.DC ---
Discharge Instructions Diet Discharge Diet: No restrictions Activity Discharge Activity: Return to Normal Activity and May Not Drive (while taking narcotic pain medications.) Dressing / Incision Call your doctor if you observe: Fever of 101 or Higher Follow Up Care Please Follow Up With: Kofi Crouch MD When: Call [phone] for an appointment Test Results: Test results from this visit will be discussed in further detail at your follow-up appointment, if applicable. Discharge Plan Admission Primary Reason for Your Visit: cysto and left stent placement Attending Provider: Kofi Crouch Primary Care Provider: Sanjay Sims Discharge Orders/Prescriptions Prescriptions: New oxycodone-acetaminophen 5-325 mg tablet 1 tab PO Q4H PRN (Reason: pain) 7 Days Qty: 20 RF: 0 phenazopyridine [Pyridium] 100 mg tablet 100 mg PO TID PRN (Reason: pain) 6 Days Qty: 20 RF: 0 cephalexin 500 mg capsule 500 mg PO BID Qty: 10 RF: 0 Continued rizatriptan [Maxalt] 10 mg tablet 10 mg PO QDAY PRN (Reason: migraines) RF: 0 cyclobenzaprine 10 mg tablet 10 mg PO QHS RF: 0 propranolol 10 mg tablet 10 mg PO BID RF: 0 buspirone 10 mg tablet 10 mg PO BID RF: 0 duloxetine [Cymbalta] 30 mg capsule,delayed release(DR/EC) 30 mg PO QHS RF: 0 duloxetine [Cymbalta] 60 mg capsule,delayed release(DR/EC) 60 mg PO QHS RF: 0 trazodone 100 mg tablet 300 mg PO QHS RF: 0 gabapentin 300 mg capsule 900 mg PO QHS RF: 0 promethazine 25 MG tablet 25 mg PO Q8H PRN PRN (Reason: Nausea) RF: 0 gabapentin 300 MG capsule 300 mg PO BID RF: 0 hydrocodone-acetaminophen 1 TABLET tablet 1 tab PO Q4H PRN PRN (Reason: Pain) 2 Days Qty: 10 RF: 0 ondansetron 4 MG tablet 4 mg PO Q8H PRN PRN (Reason: Nausea) Qty: 10 RF: 0 cephalexin 500 MG capsule 500 mg PO Q6 Qty: 28 RF: 0 atorvastatin 20 mg tablet 20 mg PO QHS RF: 0 fluticasone propionate 50 mcg/actuation spray,suspension 1 spray INTRANASAL BID PRN (Reason: Congestion) RF: 0 Referrals / Follow Up: Sanjay Sims MD [Primary Care Provider] - Kofi Crouch MD [STAFF PHYSICIAN] - Disposition Disposition (needs filled in before D/C Order can be placed): Home, Self Care
--- NOTE | 2021-08-31 13:00 | PCM.OPRPT ---
Report of Operation Date of Procedure: 08/31/21 Pre-Operative Diagnosis: Left ureteral calculi Post-Operative Diagnosis: Same Surgery/Procedure Performed:: Cystoscopy left retrograde pyelogram left stent placement interpretation fluoroscopic images Description of Surgical Findings:: This is a 51-year-old female who I saw yesterday in the office with severe pain nausea and vomiting she looked very pale and weak and was not doing well with observation of her obstructing stone so do today we put her on the schedule as an add-on for cystoscopy stent placement and then after place a stent we will let the ureter dilate and bring her back for ureteroscopy at a later setting once the situation is under control. Patient was taken back to the operating room after smooth induction of general anesthesia she was placed in dorsolithotomy position. The urethra vaginal area prepped and draped in usual fashion went in the bladder with a 21 [place] rigid cystourethroscope cannulated the left ureteral orifice with Pollick catheter to wire performed a retrograde pyelogram we can see contrast going up to the kidney I then passed a wire past the stone I tried to place a stent but the stent would not go past the stone initially so then I switched over to another Pollick catheter and put in a Super Stiff wire and then over the Super Stiff wire advanced a stent initially with a stent met the stone there was a lot of resistance but then I was able to get past it with gentle pressure and then got the stent up into the left kidney coiled in the kidney and bladder in good position I did not drain the bladder patient anesthetic reversed plan to bring her back in a week or 2 for ureteroscopy and laser lithotripsy of the obstructing stone. Surgeon: josiah Type of Anesthesia: General Drains: stent left side Admit VTE Documentation VTE Present on Admission: No VTE Mechan Device Prophylaxis: SCD's VTE Pharm Prophylaxis ordered?: No
[2021-08-31 13:03] VITALS: BP 119/66; BP 120/67; PULSE 76; RESP 14; TEMP 36.9; O2SAT 90
[2021-08-31 13:08] VITALS: BP 108/73; BP 120/67; PULSE 72; RESP 14; O2SAT 97
[2021-08-31 13:15] VITALS: BP 116/69; BP 120/67; PULSE 69; RESP 14; O2SAT 95
[2021-08-31 13:29] VITALS: BP 109/70; BP 120/67; PULSE 68; RESP 14; O2SAT 95
[2021-08-31 15:12] VITALS: BP 120/67; BP 130/68; PULSE 64; RESP 16; TEMP 36.7; O2SAT 98
== END 2021-08-31 15:15 | disposition home or self-care (01) ==
LOC: SDC 10:27 → AC 10:28
PROVIDERS: PCP Internal Medicine; Referring Provider Urology; Visit Provider Urology
PROC: (CPT 52332; principal; 2021-08-31 12:20)
DX: N20.2 Calculus of kidney with calculus of ureter (principal); K21.9 Gastro-esophageal reflux disease without esophagitis; K58.9 Irritable bowel syndrome, unspecified; G47.33 Obstructive sleep apnea (adult) (pediatric); E78.00 Pure hypercholesterolemia, unspecified; E78.5 Hyperlipidemia, unspecified; F31.9 Bipolar disorder, unspecified; F41.9 Anxiety disorder, unspecified; G62.9 Polyneuropathy, unspecified; M79.7 Fibromyalgia; G89.29 Other chronic pain; N18.30 Chronic kidney disease, stage 3 unspecified; Z56.0 Unemployment, unspecified; Z85.528 Personal history of other malignant neoplasm of kidney
CPT/HCPCS: 52332; 76000; J7120; C1769; C2617; J2405

== ENCOUNTER 2021-09-08 10:28 | Day surgery (SDC) | payer MEDICARE, SELFPAY ==
[2021-09-08] VITALS (7 sets, daily range): BP systolic 94–126; BP diastolic 48–81; PULSE 68–87; RESP 16; TEMP 36.1–37.1; O2SAT 95–100; BMI 35.8
[2021-09-08 10:58] LABS: Internal QC Validated? YES +Cl - CLEAR BKGD; Pregnancy, Urine Negative Negative
[2021-09-08] MEDS: Lactated Ringers 1,000 ML 15 ML IV (11:16)
--- NOTE | 2021-09-08 12:25 | CALC_PTH ---
PATIENT: JOVAN GRANT LOC: [facility] [place] U#:[id number] AGE/SX: 51/F ROOM: RE09/08/[address]: Dr. Kofi Crouch MD : 1970 BED: DIS: 09/08/2021 SPEC #: [id number] RECD: 09/08/21 14:00 STATUS: MITA CHEN #: [id number] THADDEUS: 09/08/21 12:[address]: Kofi Crouch DEPT: SURGICAL PATHOLOGY RECD BY: Vicki Luong ENTERED: 09/09/21 08:31 SP TYPE: Calculi OTHR DR: Dr. Sanjay Sims MD Tissues: CALCULI Procedures: Surgery Specimen Level I HEADER OPERATION: Cystoscopy, ureteroscopy, laser, stent removal, basket extraction PRE-OP DIAGNOSIS: Left ureteral calculi TISSUE SUBMITTED: Left ureteral calculi, urinary GROSS DIAGNOSIS Fragments of stone, clinically left ureteral calculi, submitted for analysis. SJ:dolores 09/13/2021 COMMENT The calculi are submitted in its entirety for chemical stone analysis. The results from this study will be reported separately. GROSS DESCRIPTION Received without fixative labeled with the patient's name and designated left ureteral calculi. The specimen consists of multiple irregular fragments of black calculi that in aggregate measure 0.3 x 0.1 x 0.1 cm. The entire specimen is submitted for stone analysis. / AM:doloers 09/09/21 CPT: 98473
--- NOTE | 2021-09-08 12:35 | PCM.HP.STD ---
HPI - General HPI Narrative JOVAN GRANT, is a 51 F who presents for treatment of an obstructing distal left ureteral calculi. [facility] Medical History (Updated 09/07/21 @ 09:19 by Shaila Mott) Anxiety Anxiety and depression Bipolar disorder Blackout Cancer Chronic neck and back pain CKD (chronic kidney disease), stage III CPAP (continuous positive airway pressure) dependence Degenerative disc disease Depression Fibromyalgia Gastric reflux GERD (gastroesophageal reflux disease) Hair loss Health care maintenance History of edema History of IBS History of renal carcinoma History of stress test Hx of renal cell cancer Hypercholesterolemia Hyperlipemia IBS (irritable bowel syndrome) Kidney stones Knee pain Migraine headache Neuropathy Non-smoker CORTEZ (obstructive sleep apnea) Seizures Severe headache Shortness of breath on exertion Sleep apnea Stage 3 chronic kidney disease Home Medications cyclobenzaprine 10 mg tablet 10 mg PO QHS tab 01/11/18 [History Last Taken Unknown] rizatriptan 10 mg tablet 10 mg PO QDAY PRN tab 01/11/18 [History Last Taken Unknown] trazodone 100 mg tablet 300 mg PO QHS tab 01/11/18 [History Last Taken Unknown] gabapentin 300 mg capsule 900 mg PO QHS 04/16/18 [History Last Taken 05/30/18 08:00] propranolol 10 mg tablet 10 mg PO BID 05/07/18 [History Last Taken 09/08/21 07:30] gabapentin 300 mg PO BID 05/26/18 [History Last Taken 09/08/21 07:30] promethazine 25 mg PO Q8H PRN PRN 05/26/18 [History Last Taken Unknown] buspirone 10 mg tablet 10 mg PO BID tab 05/12/20 [History Last Taken 09/08/21 07:30] duloxetine 30 mg capsule,delayed release 30 mg PO QHS 12/10/20 [History Last Taken Unknown] duloxetine 60 mg capsule,delayed release 60 mg PO QHS 12/10/20 [History Last Taken Unknown] hydrocodone-acetaminophen 1 tab PO Q4H PRN PRN 2 Days #10 tablet 08/27/21 [Rx Last Taken Unknown] ondansetron 4 mg PO Q8H PRN PRN #10 tab 08/27/21 [Rx Last Taken Unknown] atorvastatin 20 mg PO QHS 08/30/21 [History Last Taken Unknown] fluticasone propionate 1 spray INTRANASAL BID PRN 08/30/21 [History Last Taken Unknown] cephalexin 500 mg PO BID #10 cap 08/31/21 [Rx Last Taken Unknown] oxycodone-acetaminophen 1 tab PO Q4H PRN 7 Days #20 tab 08/31/21 [Rx Last Taken Unknown] phenazopyridine [Pyridium] 100 mg PO TID PRN 6 Days #20 tab 08/31/21 [Rx Last Taken Unknown] cephalexin 500 mg PO BID #6 cap 09/08/21 [Rx Last Taken Unknown] oxycodone-acetaminophen 1 tab PO Q6H PRN 7 Days #10 tab 09/08/21 [Rx Last Taken Unknown] Allergy/AdvReac Type Severity Reaction Status Date / Time norfloxacin [From Noroxin] Allergy Rash Verified 09/08/21 10:57 Penicillins Allergy Rash Verified 09/08/21 10:57 tizanidine HCl Allergy Rash Verified 09/08/21 10:57 [From Zanaflex] sulfamethoxazole AdvReac Severe diarrhea Verified 09/08/21 10:57 axetil AdvReac Severe diarreha Uncoded 09/08/21 10:57 Family History Father Cancer liver Colon cancer Hypertension Hyperlipemia Depression Mother Depression Thyroid disorder Grandmother Breast cancer Surgical History (Updated 09/07/21 @ 09:19 by Shaila Mott) c section delivery delivered H/O partial nephrectomy History of cholecystectomy History of cystoscopy History of orthopedic surgery kidney stone surgery uterine ablation Social History Smoking Status: Never smoker alcohol intake: never substance use type: does not use caffeine: Yes what type of physical activity do you participate in: none seatbelt use: always do you feel safe at home: Yes additional social history: [employer]- Self Employed Patient is unemployed Vital Signs Vital Signs Vital Signs: 09/08/21 11:02 Temperature 98.7 F Temperature Source Temporal Pulse Rate 81 Respiratory Rate 16 Respiratory Pattern Normal Blood Pressure 115/71 Blood Pressure Mean 85 Blood Pressure Source Monitor Blood Pressure Position Semi-Fowlers Blood Pressure Location Left Arm Pulse Ox 95 Oxygen Delivery Method Room Air Weight Weight: 100.6 kg Body Mass Index (BMI) 35.8 Results Lab / Micro Data Labs: Laboratory Results - last 24 hr 09/08/21 10:49: Urine Test Negative
--- NOTE | 2021-09-08 12:35 | PCM.DC ---
Discharge Instructions Diet Discharge Diet: No restrictions Activity Discharge Activity: Return to Normal Activity and May Not Drive (while taking narcotic pain medications.) Dressing / Incision Call your doctor if you observe: Fever of 101 or Higher Follow Up Care Please Follow Up With: Kofi Crouch MD When: Call [phone] for an appointment Test Results: Test results from this visit will be discussed in further detail at your follow-up appointment, if applicable. Discharge Plan Admission Primary Reason for Your Visit: kidney stone. Attending Provider: Kofi Crouhc Primary Care Provider: Sanjay Sims Discharge Orders/Prescriptions Prescriptions: New oxycodone-acetaminophen 5-325 mg tablet 1 tab PO Q6H PRN (Reason: pain) 7 Days Qty: 10 RF: 0 cephalexin 500 mg capsule 500 mg PO BID Qty: 6 RF: 0 Continued rizatriptan [Maxalt] 10 mg tablet 10 mg PO QDAY PRN (Reason: migraines) RF: 0 cyclobenzaprine 10 mg tablet 10 mg PO QHS RF: 0 propranolol 10 mg tablet 10 mg PO BID RF: 0 buspirone 10 mg tablet 10 mg PO BID RF: 0 duloxetine [Cymbalta] 30 mg capsule,delayed release(DR/EC) 30 mg PO QHS RF: 0 duloxetine [Cymbalta] 60 mg capsule,delayed release(DR/EC) 60 mg PO QHS RF: 0 trazodone 100 mg tablet 300 mg PO QHS RF: 0 gabapentin 300 mg capsule 900 mg PO QHS RF: 0 promethazine 25 MG tablet 25 mg PO Q8H PRN PRN (Reason: Nausea) RF: 0 gabapentin 300 MG capsule 300 mg PO BID RF: 0 hydrocodone-acetaminophen 1 TABLET tablet 1 tab PO Q4H PRN PRN (Reason: Pain) 2 Days Qty: 10 RF: 0 ondansetron 4 MG tablet 4 mg PO Q8H PRN PRN (Reason: Nausea) Qty: 10 RF: 0 atorvastatin 20 mg tablet 20 mg PO QHS RF: 0 fluticasone propionate 50 mcg/actuation spray,suspension 1 spray INTRANASAL BID PRN (Reason: Congestion) RF: 0 oxycodone-acetaminophen 5-325 mg tablet 1 tab PO Q4H PRN (Reason: pain) 7 Days Qty: 20 RF: 0 phenazopyridine [Pyridium] 100 mg tablet 100 mg PO TID PRN (Reason: pain) 6 Days Qty: 20 RF: 0 cephalexin 500 mg capsule 500 mg PO BID Qty: 10 RF: 0 Referrals / Follow Up: Sanjay Sims MD [Primary Care Provider] - Disposition Disposition (needs filled in before D/C Order can be placed): Home, Self Care
--- NOTE | 2021-09-08 12:36 | OP.PCM_ITS ---
Report of Operation Date of Procedure: 09/08/21 Pre-Operative Diagnosis: Left ureteral calculi Post-Operative Diagnosis: Same Surgery/Procedure Performed:: Cystoscopy, left ureteroscopy laser lithotripsy of stone, basket of fragments, left retrograde pyelogram interpretation fluoroscopic images, removal of stent. No stent placed Description of Surgical Findings:: Patient was taken back to the operating room after smooth induction of general anesthesia she was placed in dorsolithotomy position. The urethra vaginal area prepped and draped in usual fashion when of the bladder with a 21 Filipino rigid cystourethroscope direct existing stent pulled out to the meatus through the stent and put a wire with a wire up into the kidney under fluoroscopic guidance I then backloaded the stent off the wire left the wire in place the next the wire went in with a 7 Filipino SlimLine rigid ureteroscope was able to get into the ureter quite easily and then encountered the stone I used a 270 ?m laser fiber laser the stone into the chunks and then after breaking up the stone into pieces I used a tipless nitinol basket and basketed the fragments and pulled him out of the bladder the pieces were then cut and sent off as a specimen. I then went back into the ureteroscope and performed a retrograde pyelogram contrast went up the ureter no obstruction was seen and contrast drained well after doing a retrograde pyelogram then I and removal of the stent I backed out the ureter bladder was drained the patient anesthetic reversed the stone was successfully lasered all the fragments were removed the stent had been removed no stent was placed and the patient was taken back to PACU good condition she will follow-up in 1 month for checkup in the office. Surgeon: josiah Type of Anesthesia: General Drains: none Admit VTE Documentation VTE Present on Admission: No VTE Mechan Device Prophylaxis: SCD's VTE Pharm Prophylaxis ordered?: No
[2021-09-08] MEDS: Ketorolac 15 MG/ML Vial IV (12:58)
[2021-09-20 16:40] LABS: Source LEFT URETER
[2021-09-20 16:41] LABS: Ca Oxalate, Dihydrate 10; Ca Oxalate, Monohydrate 90
== END 2021-09-08 15:11 | disposition home or self-care (01) ==
LOC: SDC 10:31 → AC 10:32
PROVIDERS: Anesthesiology; PCP Internal Medicine; Referring Provider Urology; Visit Provider Urology
PROC: 0TJ98ZZ Inspection of Ureter, Via Natural or Artificial Opening Endoscopic (ICD-10-PCS; CPT 52352; principal; 2021-09-08 12:15)
DX: N20.1 Calculus of ureter (principal); E78.00 Pure hypercholesterolemia, unspecified; E78.5 Hyperlipidemia, unspecified; F31.9 Bipolar disorder, unspecified; F41.9 Anxiety disorder, unspecified; M79.7 Fibromyalgia; N18.30 Chronic kidney disease, stage 3 unspecified; G62.9 Polyneuropathy, unspecified; G47.33 Obstructive sleep apnea (adult) (pediatric); K21.9 Gastro-esophageal reflux disease without esophagitis; K58.9 Irritable bowel syndrome, unspecified; G89.29 Other chronic pain; Z56.0 Unemployment, unspecified; Z87.442 Personal history of urinary calculi; Z85.528 Personal history of other malignant neoplasm of kidney
CPT/HCPCS: 00918; 50386; 52353; 76000; 81025; 82360; 88300; J7120; C1769; J2405

== ENCOUNTER 2021-12-08 17:06 | Outpatient (CLI) | payer MEDICARE, SELFPAY ==
[2021-12-08 18:00] LABS: Amphetamine Urine VISTA NEGATIVE (<1000 ng/mL); Barbiturate Urine VISTA NEGATIVE (< 200 ng/mL); Benzodiazepine Urine VISTA NEGATIVE (< 200 ng/mL); Cocaine Urine VISTA NEGATIVE (< 300 ng/mL); Ecstacy Urine VISTA POSITIVE (< 500 ng/mL); Methadone Urine VISTA NEGATIVE (< 300 ng/mL); PCP Urine VISTA NEGATIVE (< 25 ng/mL); THC Urine VISTA NEGATIVE (< 50 ng/mL); Vista UDS pH Range 5
== END 2021-12-08 23:59 | disposition home or self-care (01) ==
LOC: LAB 17:07
PROVIDERS: PCP Internal Medicine; Referring Provider Anesthesiology Pain Medicine; Visit Provider Anesthesiology Pain Medicine
DX: F11.20 Opioid dependence, uncomplicated (principal)
CPT/HCPCS: 80307

== ENCOUNTER 2022-01-21 10:30 | Outpatient (RCR) | payer MEDICARE, SELFPAY ==
--- NOTE | 2021-12-06 10:28 | HP.PTEVAL ---
Patient's Visit Information JOVAN GRANT is a 51 year old F referred to Physical Therapy by Dr. Krishna Erazo MD with a diagnosis of R shoulder synovitis/tenosynovitis. Date of Evaluation: 12/06/21 Physical Therapist: Aman Frederick DPT - Visit Plan Frequency: 2x /Week Duration: 4 Weeks Plan: Start with DFM to biceps, US if needed. Consider inferior and multidirectional GH glides. Progress ER/biceps strength (add in biceps eccentric with focus on proximal tendon stress as tolerated). - Subjective Pt. is here today for her initial evaluation with diagnosis of R shoulder synovitis/tenosynovitis. Pt. reports no mech of injury, but has been having increased pain for a few months now. Pt. reports increased pain with sleeping on either side. Increased pain with all ADLs, especially OH and behind her back. Pt. reports increased pain with lifting as well. She has decreased pain with rest. 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 Pt. reports pain at anterior aspect of her shoulder down into biceps region. No cervical pain noted. Pt. is hopeful to reduce symptoms in order to complete all ADLs and work activities without limitations. - Pain R anterior shoulder Pain Intensity (Out of 10): 4 Pain Intensity Range: 2, 8 - Objective POSTURE: Pt. has slight FH posture, slight rounded shoulders. PALPATION: Pt. has increased tenderness along biceps tendon in groove, increased pain at supraspinatus insertion as well. NEURO: Pt. has normal DTR and normal sensation throughout BUEs. ROM: L shoulder: full ROM without increase in symptoms. R shoulder AROM: flexion 145deg, abd 155deg, functional ER C1, functional IR R ASIS. PROM: flexion 160deg, abd 155deg, ER at 90deg 80deg, IR at 90deg 45deg. MMT: L shoulder 5/5 throughout. R shoulder: flexion 4/5 increase NW, abd 4/5 increase NW, ER 4+/5 NE, IR 5-/5 NE, ext 5/5 NE. - Special Tests R Shoulder Lift Off Test - Subscapular Tear: Negative R Shoulder Drop Sign - IS Test: Negative R Shoulder Empty Can - SS: Positive R Shoulder Belly Press - SupScap: Negative R Shoulder Neer - Impingement: Positive R Shoulder Victor Chase - Impingement: Positive R Shoulder Yeargasons - SLAP: Positive R Shoulder Speeds Test - Labrum/Biceps: Positive - Balance/Special Test Scores Quick DASH Score: 40.9075 - Goals Goal 1:: LTG: pt. to be I with all HEP for posture and strengthening activities. Goal Time Frame: 2-4 Weeks Goal 2:: STG: Pt. to sleep throughout the night without increase in symptoms. Goal Time Frame: 2 Weeks Goal 3:: LTG: pt. to have increased AROM of R shoulder symmetrical to L without increase in symptoms. Goal Time Frame: 2-4 Weeks Goal 4:: LTG: pt. to have increased strength of R UE, symmetrical to L side without increase in symptoms. Goal Time Frame: 4-6 Weeks Goal 5:: LTG: pt. to complete all ADLs and work activities without increase in symptoms. Goal Time Frame: 4-6 Weeks - Rehabilitation Potential Physical Therapy Diagnosis: Pt. has signs and symptoms consistent with R shoulder synovitis/tenosynovitis. Pt. has signs suggesting biceps involvement. She has marked pain with all OH motions, increased pain with all ADLs and work related activities. She would benefit from PT to address the above limitations progressing back to all functional activities without limitations. Rehabilitation Potential: Good - Anticipated Interventions Patient/Client Instruction: Educate patient on: Condition, Plan of Care, Risk Factors, Benefits of Fitness Program For the Purpose of:: To improve decision making, To facilitate caregiver knowledge, To improve self management, To improve ability to perform tasks related to life management Therapeutic Exercise to Include: Strength training, Power training, Endurance training, Body mechanics, Postural training, Flexibilty training, Passive ROM, Active ROM, Scapular Strength/Stabilization For the Purpose of:: To decrease pain, To decrease swelling/inflammation, To increase ROM, To improve nutrient delivery to tissue, To increase oxygenation perfusion, To improve muscle performance and motor function, To improve ability to perform ADL's, To improve performance and independence with ADL's, To improve health of tissue, To decrease soft tissue restriction, To increase flexibility/ROM Manual Therapy Techniques to Include: Mobilization For the Purpose of:: To decrease pain, To decrease swelling/inflammation, To increase ROM, To improve nutrient delivery to tissue, To increase oxygenation perfusion, To improve muscle performance and motor function Ultrasound (thermal/non thermal): Yes For the Purpose of:: To decrease pain, To decrease swelling/inflammation, To increase ROM, To improve nutrient delivery to tissue, To increase oxygenation perfusion Thank you for the opportunity to evaluate your patient. For Medicare and Medicare HMO plans, please review the plan of care and approve it. It will need to be FAXED BACK to us at [phone] for Medicare purposes. For Medicare only, by signing this I certify the plan of care. Please let me know if there are questions or concerns regarding this plan of care. Physician Signature: Date:
== END 2022-01-21 19:00 | disposition home or self-care (01) ==
LOC: PT 10:30
PROVIDERS: PCP Internal Medicine; Referring Provider Specialist; Visit Provider Specialist
DX: M65.811 Other synovitis and tenosynovitis, right shoulder (principal); M25.511 Pain in right shoulder
CPT/HCPCS: 97035; 97110; 97140; 97161; 97164

== ENCOUNTER → 2022-02-11 | Outpatient (CLI) | payer MEDICARE, SELFPAY ==
[2022-02-11 12:29] LABS: Absolute Lymphocyte Count 1.97 X10^3/uL (0.83-4.51); Absolute Neutrophil Count 5.2 X10^3/uL (2.0-7.7); Basophil# 0.05 X10^3/uL; Basophil% 0.6 % (0-1); Eosinophil# 0.15 X10^3/uL; Eosinophils% 1.9 % (0-5); Hematocrit 36.8 % (37-47); Lymphocyte # 1.97 X10^3/ul (0.83-4.51); Lymphocyte % 25.4 % (19-41); Mean Corp Hgb Conc 32.6 g/dL (32-36); Mean Corpuscular Hgb 31.8 pg (27.0-32.0); Mean Corpuscular Volume 97.6 fL (81-99); Monocyte% 5.1 % (0-10); NRBC Flagged by Analyzer 0 % (0-5); Neutrophil # 5.17 X10^3/uL (2.7-7.7); Neutrophil % 66.6 % (47-70); Platelet Count 194 K/mm3 (150-450); RBC Distribution Width CV 12.6 % (11.6-14.6); RBC Distribution Width SD 45.1 fl (35.1-43.9); Red Blood Count 3.77 M/mm3 (4.2-5.4); White Blood Count 7.8 K/mm3 (4.4-11.0)
[2022-02-11 12:52] LABS: ALB/GLOB Ratio 0.8 RATIO (0.9-2.4); AST(SGOT) 15 U/L (15-37); Alanine Aminotransfer ALT/SGPT 26 U/L (13-56); Albumin, Serum 3.4 g/dL (3.2-5.0); Alkaline Phosphatase 112 U/L (45-117); Anion Gap 9 (5-15); BUN 17 mg/dL (7-18); BUN/Creat Ratio 15.3 RATIO (10-20); Calcium,Total 9.2 mg/dL (8.5-10.1); Chloride 106 mmol/L (98-107); Creatinine, Serum 1.11 mg/dL (0.55-1.02); EST Glomerular Filtration Rate 55 mL/min (>60); Est Glom Filt Rate - Afr Amer 66 mL/min (>60); Glucose 102 mg/dL (74-106); Potassium 3.3 mmol/L (3.5-5.1); Protein, Total 7.4 g/dL (6.4-8.2); Sodium Level 141 mmol/L (136-145); T4 Free Direct 0.94 ng/dL (0.76-1.46); Thyroid Stim Hormone (TSH) 1.11 uIU/mL (0.358-3.74)
[2022-02-12 09:23] LABS: Vitamin D,25 Hydroxy 70.9 ng/mL
== END | disposition home or self-care (01) ==
LOC: BIMLAB 09:20
PROVIDERS: PCP Internal Medicine; Referring Provider Internal Medicine; Visit Provider Internal Medicine
DX: F41.9 Anxiety disorder, unspecified (principal); N18.30 Chronic kidney disease, stage 3 unspecified; F32.9 Major depressive disorder, single episode, unspecified; R53.83 Other fatigue
CPT/HCPCS: 36415; 80053; 82306; 84439; 84443; 85025

== ENCOUNTER → 2022-02-19 | Outpatient (CLI) | payer MEDICARE, SELFPAY ==
--- NOTE | 2022-02-19 09:09 | MRI_ITS ---
HISTORY: RADICULOPATHY, CERVICAL REGION. New onset bilateral upper stomach pain greater on the left side x 2 months, history of kidney cancer 2015. TECHNIQUE: Multiplanar and multisequence MR images of the cervical spine were performed. IV Contrast Dosage and Agent: None. 268 images. COMPARISON: XR 05/12/2020, MR 06/22/2017. FINDINGS: VERTEBRAE: Vertebral body heights maintained. Degenerative endplate changes at multiple levels with degenerative bone marrow signal change at C7-T1. VERTEBRAL ALIGNMENT: No anterior or posterior subluxation. Straightening of the cervical lordosis. SPINAL CORD: Cervical cord signal and morphology within normal limits. SOFT TISSUES: No prevertebral fluid collection. Small maxillary sinus mucous retention cyst. INTERVERTEBRAL DISCS: Mild posterior disc bulge osteophyte complexes with uncovertebral and facet arthropathy superimposed on a developmentally narrow spinal canal. C2-3: No posterior disc protrusion. No significant central canal stenosis or foraminal narrowing. C3-4: Mild central canal stenosis, progressed from prior. Mild left foraminal narrowing. C4-5: Mild central canal stenosis, progressed from prior. Moderate left foraminal narrowing. C5-6: Moderate central canal stenosis, progressed from prior. Mild-moderate left foraminal narrowing. C6-7: Moderate central canal stenosis, progressed from prior. Moderate right and mild-moderate left foraminal narrowing. C7-T1: Mild central canal stenosis and bilateral foraminal narrowing, similar to prior. Decreased right subligamentous extruded disc component, mildly abutting exiting and traversing nerve roots. MRI/Spine Cervical (Routine) IMPRESSION: Progression of multilevel degenerative disc disease in the cervical spine as above. Electronically Signed: Anastasiya Mckee MD at 10:52 EDT ,
== END | disposition home or self-care (01) ==
LOC: MRI 08:43
PROVIDERS: PCP Internal Medicine; Visit Provider Anesthesiology Pain Medicine
DX: M54.12 Radiculopathy, cervical region (principal)
CPT/HCPCS: 72141

== ENCOUNTER 2022-02-25 15:41 | Emergency (ER) | payer MEDICARE, SELFPAY ==
[2022-02-25 15:42] VITALS: BP 134/86; PULSE 123; RESP 16; TEMP 38; O2SAT 98; BMI 35.2
--- NOTE | 2022-02-25 16:01 | EX.ED.DYSGE1 ---
HPI History of Present Illness Chief Complaint: General Illness Informant: patient Onset/Context/Timing Onset: Weeks (2) Context: Gradual Onset Timing: Continuous Quality: Spinning Location: Head Worsened by: Nothing Relieved by: Nothing Narrative Narrative: Patient presents with not feeling well that has been getting worse over the past 2 weeks. Patient states she feels like she is dizzy. Patient describes this as a spinning sensation in her head. Patient admits to a headache. Patient states her headache is similar to prior migraine headaches. Patient states she was given a prescription for Topamax which was not helping. Patient states nothing makes her symptoms any better nothing makes them any worse. Patient denies any fevers or chills. Patient does admit to some diplopia. Patient admits to nausea but denies any vomiting. [facility] Medical History Anxiety Anxiety and depression Bipolar disorder Blackout Cancer Chronic neck and back pain CKD (chronic kidney disease), stage III CPAP (continuous positive airway pressure) dependence Degenerative disc disease Depression Fatigue Fibromyalgia Gastric reflux GERD (gastroesophageal reflux disease) Hair loss Health care maintenance History of edema History of IBS History of renal carcinoma History of stress test Hx of renal cell cancer Hypercholesterolemia Hyperlipemia Hypokalemia IBS (irritable bowel syndrome) Kidney stones Knee pain Migraine headache Neuropathy Non-smoker CORTEZ (obstructive sleep apnea) Preventative health care Seizures Severe headache Shortness of breath on exertion Sleep apnea Stage 3 chronic kidney disease Home Medications cyclobenzaprine 10 mg tablet 10 mg PO QHS tab 01/11/18 [History Last Taken Unknown] rizatriptan 10 mg tablet 10 mg PO QDAY PRN tab 01/11/18 [History Last Taken Unknown] trazodone 100 mg tablet 350 mg PO QHS tab 01/11/18 [History Last Taken Unknown] gabapentin 300 mg capsule 900 mg PO QHS 04/16/18 [History Last Taken 05/30/18 08:00] propranolol 10 mg tablet 10 mg PO BID 05/07/18 [History Last Taken 09/08/21 07:30] gabapentin 300 mg PO BID 05/26/18 [History Last Taken 09/08/21 07:30] promethazine 25 mg PO Q8H PRN PRN 05/26/18 [History Last Taken Unknown] buspirone 10 mg tablet 10 mg PO BID tab 05/12/20 [History Last Taken 09/08/21 07:30] duloxetine 30 mg capsule,delayed release 30 mg PO QHS 12/10/20 [History Last Taken Unknown] duloxetine 60 mg capsule,delayed release 60 mg PO QHS 12/10/20 [History Last Taken Unknown] hydrocodone-acetaminophen 1 tab PO Q4H PRN PRN 2 Days #10 tablet 08/27/21 [Rx Last Taken Unknown] fluticasone propionate 1 spray INTRANASAL BID PRN 08/30/21 [History Last Taken Unknown] atorvastatin 20 mg tablet 20 mg PO QHS #90 tab 02/11/22 [Rx Last Taken Unknown] rimegepant 75 mg disintegrating tablet 75 mg PO DAILY PRN tab 02/11/22 [History Last Taken Unknown] meclizine 25 mg PO Q8H PRN PRN #20 tab 02/25/22 [Rx Last Taken Unknown] nitrofurantoin monohyd/m-cryst 100 mg PO Q12 #14 capsule 02/25/22 [Rx Last Taken Unknown] Allergy/AdvReac Type Severity Reaction Status Date / Time norfloxacin [From Noroxin] Allergy Rash Verified 02/25/22 15:46 Penicillins Allergy Rash Verified 02/25/22 15:46 tizanidine HCl Allergy Rash Verified 02/25/22 15:46 [From Zanaflex] sulfamethoxazole AdvReac Severe diarrhea Verified 02/25/22 15:46 axetil AdvReac Severe diarreha Uncoded 02/25/22 15:46 Family History Father Cancer liver Colon cancer Hypertension Hyperlipemia Depression Mother Depression Thyroid disorder Grandmother Breast cancer Surgical History c section delivery delivered H/O partial nephrectomy History of cholecystectomy History of cystoscopy History of orthopedic surgery kidney stone surgery uterine ablation Social History Smoking Status: Never smoker alcohol intake: never substance use type: does not use caffeine: Yes what type of physical activity do you participate in: none seatbelt use: always do you feel safe at home: Yes additional social history: Daniel- Self Employed Patient is unemployed ROS ROS ED Constitutional Constitutional ED: Denies chills or fever(s) Eyes Eyes: Reports diplopia; Denies blurry vision ENT ENT ED: Denies rhinorrhea or sore throat Cardiovascular Cardiovascular: Denies chest pain or palpitations Respiratory/Chest Respiratory/Chest: Denies cough or dyspnea Gastrointestinal Gastrointestinal: Reports abdominal pain and nausea; Denies vomiting Genitourinary Genitourinary ED: Denies dysuria or hematuria Musculoskeletal Musculoskeletal: Reports neck pain; Denies back pain Integumentary Denies abscess or rash Neurologic Neurologic: Reports headache(s); Denies weakness Allergic/Immunologic Allergic/Immunologic ED: Denies mouth swelling or urticaria EXAM Physical Exam Const Vital Signs: 02/25/22 15:42 02/25/22 15:45 02/25/22 17:45 Temperature 100.4 F H Temperature Source Oral Pulse Rate 123 H Pulse Rate [Lying] 113 H Pulse Rate [Sitting (for 1 minute prior to obtaining)] 114 H Pulse Rate [Standing (for 1 minute prior to obtaining)] 123 H Respiratory Rate 16 Respiratory Effort Normal Non-Labored Respiratory Pattern Normal Blood Pressure 134/86 H Blood Pressure [Lying] 101/52 L Blood Pressure [Sitting (for 1 minute prior to obtaining)] 103/70 Blood Pressure [Standing (for 1 minute prior to obtaining)] 95/67 Blood Pressure Mean 102 Blood Pressure Mean [Lying] 68 Blood Pressure Mean [Sitting (for 1 minute prior to obtaining)] 81 Blood Pressure Mean [Standing (for 1 minute prior to obtaining)] 76 Pulse Ox 98 Oxygen Delivery Method Room Air Positive well nourished and well developed General Appearance ED: well developed HEENT Reports moist mucous membranes Eyes PERRL and EOMs intact bilaterally Eyes Narrative: There is mild nystagmus with lateral gaze. Patient states this did reproduce her dizziness. Neck supple and no JVD Resp normal respiratory effort and clear to auscultation bilaterally Cardio regular rate, regular rhythm and no murmurs GI normal to inspection, nondistended, normoactive bowel sounds and non-tender Palpation: soft Extremity normal to inspection General Extremety ED: Negative for edema or tenderness General Extremity: Negative for edema Neuro oriented x3, CN's II-XII intact bilaterally and no sensory deficits noted Sensorium / Orientation: alert Motor Exam: strength 5/5 throughout Psych mental status grossly normal Skin no rashes or lesions noted MDM MDM MDM Narrative Medical decision making narrative: Patient was given IV fluids. Patient was given a dose of meclizine here. CT scan of the brain was obtained. There is no acute intracranial abnormality. This was interpreted by the radiologist and reviewed by myself. CBC shows a mild leukocytosis of 16.4. Comprehensive metabolic profile shows a BUN of 21 and creatinine of 1.93. This is slightly increased from previous results. Urinalysis shows leukocyte esterases of 500 with 25-50 white blood cells. Urine culture was ordered. Patient was given a dose of Macrobid here. Patient was also given a dose of Compazine and Benadryl for her headache. Patient is feeling better on reevaluation. Patient was given prescriptions for meclizine and Macrobid. Patient was instructed to drink plenty of fluids. Patient was instructed to follow-up with her primary care physician in 5 to 7 days. Patient understood and was agreeable with the plan. All questions were answered. Lab Data Attestation: I reviewed the patient's lab results. Labs: Laboratory Results - last 24 hr 02/25/22 02/25/22 02/25/22 16:15 16:45 16:45 WBC 16.4 H RBC 4.31 Hgb 13.9 Hct 42.9 MCV 99.5 H MCH 32.3 H MCHC 32.4 RDW Std Deviation 45.9 H RDW Coeff of [place] 12.4 Plt Count 178 MPV 9.5 Immature Gran % (Auto) 0.500 Neut % (Auto) 83.7 H Lymph % (Auto) 8.2 L [place] % (Auto) 6.2 Eos % (Auto) 0.9 Baso % (Auto) 0.5 Absolute Neuts (auto) 13.7 H Absolute Lymphs (auto) 1.34 Nucleated RBC % 0 Platelet Estimate ADEQUATE RBC Morphology N CHROM Sodium 138 Potassium 4.4 Chloride 110 H Carbon Dioxide 23.0 Anion Gap 5 BUN 21 H Creatinine 1.93 H Estim Creat Clear Calc 31.56 Est GFR (MDRD) Af Amer 35 L Est GFR (MDRD) Non-Af 29 L BUN/Creatinine Ratio 10.9 Glucose 124 H Calcium 9.2 Total Bilirubin 0.70 AST 35 ALT 27 Alkaline Phosphatase 133 H Total Protein 7.5 Albumin 3.1 L Globulin 4.4 H Albumin/Globulin Ratio 0.7 L Urine Color Yellow Urine Clarity Sl. Cloudy Urine pH 6.0 Ur Specific [place] 1.020 Urine Protein 15 H Urine Glucose (UA) Normal Urine Ketones Negative Urine Occult Blood 25 H Urine Nitrite Negative Urine Bilirubin Negative Urine Urobilinogen Normal Ur Leukocyte Esterase 500 H Urine RBC 0 SEEN Urine WBC 25-50 SEEN Ur Squamous Epith Cells 0-5 SEEN Calcium Oxalate Crystal 1+ Urine Bacteria 0 SEEN Urine Mucus 0 SEEN Radiography Diagnostic Testing: Clinical Impression(s) from Imaging Studies Brain CT 02/25/22 16:07 IMPRESSION: Negative head/brain CT without intravenous contrast. Electronically Signed: Tommie Duque MD at 17:28 EDT , Discharge Plan Triage Chief Complaint: General Illness ED Provider: Chris Molina Dx/Rx/DC Orders Clinical Impression: Vertigo, Stage 3 chronic kidney disease, Urinary tract infection Instructions: ED CYSTITIS Female Adult, ED Vertigo, Unspecified Prescriptions: New meclizine 25 MG tablet 25 mg PO Q8H PRN PRN (Reason: Dizziness) Qty: 20 RF: 0 nitrofurantoin monohyd/m-cryst [nitrofurantoin monohyd/m-cryst] 100 MG capsule 100 mg PO Q12 Qty: 14 RF: 0 No Action rizatriptan [Maxalt] 10 mg tablet 10 mg PO QDAY PRN (Reason: migraines) RF: 0 cyclobenzaprine 10 mg tablet 10 mg PO QHS RF: 0 propranolol 10 mg tablet 10 mg PO BID RF: 0 buspirone 10 mg tablet 10 mg PO BID RF: 0 duloxetine [Cymbalta] 30 mg capsule,delayed release(DR/EC) 30 mg PO QHS RF: 0 duloxetine [Cymbalta] 60 mg capsule,delayed release(DR/EC) 60 mg PO QHS RF: 0 Nurtec ODT 75 mg tablet,disintegrating 75 mg PO DAILY PRN (Reason: Migraine Headache) RF: 0 atorvastatin 20 mg tablet 20 mg PO QHS Qty: 90 RF: 3 trazodone 100 mg tablet 350 mg PO QHS RF: 0 gabapentin 300 mg capsule 900 mg PO QHS RF: 0 promethazine 25 MG tablet 25 mg PO Q8H PRN PRN (Reason: Nausea) RF: 0 gabapentin 300 MG capsule 300 mg PO BID RF: 0 hydrocodone-acetaminophen 1 TABLET tablet 1 tab PO Q4H PRN PRN (Reason: Pain) 2 Days Qty: 10 RF: 0 fluticasone propionate 50 mcg/actuation spray,suspension 1 spray INTRANASAL BID PRN (Reason: Congestion) RF: 0 Primary Care Provider: Sanjay Sims Referrals: Sanjay Sims MD [Primary Care Provider] - 5-7 Days Disposition Disposition: Home, Self Care
--- NOTE | 2022-02-25 16:07 | CT_ITS ---
EXAM: CT HEAD WITHOUT INTRAVENOUS CONTRAST CLINICAL INDICATION: Headache X 10 DAYS TECHNIQUE: Multiple axial images were obtained of the head without intravenous contrast. This CT exam was performed using one or more of the following dose reduction techniques: automated exposure control, adjustment of the mA and/or kV according to patient size, and/or use of iterative reconstruction technique. This report was created using [employer] report generation technology. COMPARISON: 12/11/2013 FINDINGS: BRAIN AND EXTRA-AXIAL SPACES: Unremarkable. No intra- or extra-axial hemorrhage. No evidence of acute infarct. No intracranial mass or mass effect. There is preservation of the gonzalez/white matter interface. Posterior fossa structures are unremarkable. Ventricles are appropriate for age. No hydrocephalus. Basal cisterns are patent. BONES/JOINTS: Unremarkable. No discrete lytic or blastic abnormalities. SINUSES: Unremarkable as visualized. Clear. MASTOID AIR CELLS: Unremarkable. Clear. ORBITS: Visualized globes, extraocular muscles, optic nerves and retrobulbar fat appear unremarkable. CT/Brain/Head without Contrast IMPRESSION: Negative head/brain CT without intravenous contrast. Electronically Signed: Tommie Duque MD at 17:28 EDT ,
[2022-02-25 16:29] LABS: Bacteria 0 SEEN /hpf (None Seen); Mucous, Urine 0 SEEN /hpf (<or=2+); Red Blood Cells-Urine 0 SEEN /hpf (0-5)
[2022-02-25 16:31] LABS: Color, Urine Yellow (Yellow); Glucose, Dipstick Normal (Normal); Ketone-Dipstick Negative (Negative); Leukocyte Esterase-Dipstick 500 /ul (Negative); Nitrite-Dipstick Negative (Negative); Occult Blood-Urine 25 /ul (Negative); Protein-Dipstick 15 mg/dl (Negative); Urine Bilirubin Dipstick Negative (Negative); Urine Clarity Sl. Cloudy (Clear); Urine Urobilinogen Normal (Normal)
[2022-02-25 16:44] LABS: Calcium Oxalate Crystals Ur 1+ /hpf (<or=2+); Squamous Epithelial Cells - UA 0-5 SEEN /hpf (5-10); White Blood Cells 25-50 SEEN /hpf (0-5)
[2022-02-25] MEDS: Meclizine HCl 25 MG Tablet PO (16:49)
[2022-02-25 16:57] LABS: Absolute Lymphocyte Count 1.34 X10^3/uL (0.83-4.51); Absolute Neutrophil Count 13.7 X10^3/uL (2.0-7.7); Basophil# 0.08 X10^3/uL; Basophil% 0.5 % (0-1); Eosinophil# 0.15 X10^3/uL; Eosinophils% 0.9 % (0-5); Hematocrit 42.9 % (37-47); Hemoglobin 13.9 g/dL (12.0-15.0); Lymphocyte # 1.34 X10^3/ul (0.83-4.51); Lymphocyte % 8.2 % (19-41); Mean Corp Hgb Conc 32.4 g/dL (32-36); Mean Corpuscular Hgb 32.3 pg (27.0-32.0); Mean Corpuscular Volume 99.5 fL (81-99); Mean Platelet Vol. 9.5 fl (6.2-12.0); Monocyte# 1.02 X10^3/uL; Monocyte% 6.2 % (0-10); NRBC Flagged by Analyzer 0 % (0-5); Neutrophil # 13.72 X10^3/uL (2.7-7.7); Neutrophil % 83.7 % (47-70); POSITIVE COUNT YES; Platelet Count 178 K/mm3 (150-450); RBC Distribution Width CV 12.4 % (11.6-14.6); RBC Distribution Width SD 45.9 fl (35.1-43.9); Red Blood Count 4.31 M/mm3 (4.2-5.4); White Blood Count 16.4 K/mm3 (4.4-11.0)
[2022-02-25 16:59] LABS: Differential Indicated SCAN CRITERIA MET
[2022-02-25 17:21] LABS: ALB/GLOB Ratio 0.7 RATIO (0.9-2.4); AST(SGOT) 35 U/L (15-37); Alanine Aminotransfer ALT/SGPT 27 U/L (13-56); Albumin, Serum 3.1 g/dL (3.2-5.0); Alkaline Phosphatase 133 U/L (45-117); Anion Gap 5 (5-15); BUN 21 mg/dL (7-18); BUN/Creat Ratio 10.9 RATIO (10-20); Calcium,Total 9.2 mg/dL (8.5-10.1); Chloride 110 mmol/L (98-107); Creatinine, Serum 1.93 mg/dL (0.55-1.02); EST Glomerular Filtration Rate 29 mL/min (>60); Est Glom Filt Rate - Afr Amer 35 mL/min (>60); Estimated Creatinine Clearance 31.56 ml/min; Globulin 4.4 g/dL (2.2-4.2); Glucose 124 mg/dL (74-106); Platelet Estimate ADEQUATE (ADEQ); Potassium 4.4 mmol/L (3.5-5.1); Protein, Total 7.5 g/dL (6.4-8.2); Red Cell Morphology N CHROM NORMAL (NORM C&C); Sodium Level 138 mmol/L (136-145)
[2022-02-25] MEDS: Nitrofurantoin Macrocrystals 100 MG Capsule PO (17:34)
[2022-02-25 17:45] VITALS: BP 101/52; BP 103/70; BP 95/67; PULSE 113; PULSE 114; PULSE 123
[2022-02-25] MEDS: 0.9% Normal Saline 1,000 ML 999 ML IV (18:28)
[2022-02-25] MEDS: proCHLORPERazine 10 MG/2 ML Vial IV (18:29)
[2022-02-25] MEDS: DiphenhydrAMINE 50 MG/ML Syringe 25 MG IV (18:30)
[2022-02-25 19:48] VITALS: BP 117/74; PULSE 111; RESP 20; O2SAT 94
== END 2022-02-25 19:48 | disposition home or self-care (01) ==
PROVIDERS: Emergency Provider Emergency Medicine; PCP Internal Medicine; Visit Provider Emergency Medicine
DX: R42 Dizziness and giddiness (principal); F31.9 Bipolar disorder, unspecified; N18.30 Chronic kidney disease, stage 3 unspecified; N39.0 Urinary tract infection, site not specified; E78.5 Hyperlipidemia, unspecified; E78.00 Pure hypercholesterolemia, unspecified; H53.2 Diplopia; R51.9 Headache, unspecified; G47.33 Obstructive sleep apnea (adult) (pediatric); F41.9 Anxiety disorder, unspecified; F32.A Depression, unspecified; Z99.89 Dependence on other enabling machines and devices
CPT/HCPCS: 70450; 80053; 81001; 85025; 87086; 87088; 87428; 99285; A4216

== ENCOUNTER → 2022-03-03 | Outpatient (CLI) | payer MEDICARE, SELFPAY ==
--- NOTE | 2022-03-03 14:15 | CT_ITS ---
STUDY: CT ABDOMEN AND PELVIS WITHOUT CONTRAST REASON FOR EXAM: Female, 51 years old. Acute abdominal pain RADIATION DOSAGE (If Supplied By Facility): CTDIvol = ( 19.74 ) mGy, DLP = ( 1049.06 ) mGycm TECHNIQUE: Transaxial images were obtained from the dome of the diaphragm to the symphysis pubis without oral contrast, and without intravenous contrast. Sagittal and coronal images were reconstructed. Individualized dose optimization techniques were used for this CT. COMPARISON: Comparison is made with prior study dated 08/27/2021. FINDINGS: Persistent mild increased linear markings at the lung bases suggestive of scarring and/or atelectasis. The visualized portions of the heart are within normal limits. Normal liver. The patient is status post cholecystectomy. Normal spleen. Normal pancreas. Normal bilateral adrenal glands. Normal right kidney. There is a moderate degree of left hydronephrosis and hydroureter with perinephric stranding. This is due to a 1 cm calculus at the distal portion of the ureter just proximal to the ureterovesical junction. Surgical sutures are seen in the superior lateral aspect of the left kidney. Punctate calcification in the midpole calyx of the left kidney. 8 mm calculus in the lower pole calyx of the left kidney. Normal visualized stomach. Stable appearance of the duodenal diverticulum. Normal colon. The appendix is visualized and appears normal. Normal abdominal aorta. Normal inferior vena cava. Normal retroperitoneum. Normal urinary bladder. Normal abdominal wall. Normal osseous structures. CT/Abdomen/Pelvis without Cont IMPRESSION: Moderate degree of left hydronephrosis and hydroureter due to a and 1; question distal portion of the left ureter just proximal to the ureterovesical junction. Postsurgical changes seen in the upper lateral aspect of the left kidney. Electronically Signed: James Kuhn MD at 14:53 EDT ,
== END | disposition home or self-care (01) ==
LOC: CT 14:11
PROVIDERS: PCP Internal Medicine; Visit Provider Internal Medicine
DX: R10.9 Unspecified abdominal pain (principal)
CPT/HCPCS: 74176

== ENCOUNTER 2022-03-07 14:24 | Outpatient (RCR) | payer MEDICARE, SELFPAY ==
--- NOTE | 2022-03-07 15:24 | HP.PTEVAL ---
Patient's Visit Information JOVAN GRANT is a 51 year old F referred to Physical Therapy by Dr. Sanjay Sims MD with a diagnosis of vertigo, dizzy, giddy.. Date of Evaluation: 03/07/22 Physical Therapist: Chris Yanez, DPT, OCS, CSCS - Visit Plan Frequency: 1-2x /Week Duration: 4-6 Weeks Plan: 2x/week for 4 weeks for...positional and adaptation exercises. Balance exercises. next session please check positional and progress to VOR ex via HEP if positional not helpful. Balance ex with head movements. - Subjective I started taking topomax for OLEARY but it made her feel disassociated and difficulty concentrating. That was 3 weeks ago. did not help OLEARY. Took it for not quite a week. Made her dizzy. Intermittent dizzyness, worse in mornings when bad. Can be terrible. 20 minutes in morning. described as lightheaded more than anything, no spinning. Hard to stand with eyes closed. No falls. Has almost passed out sometimes maybe due to kidney stone. Will get advice on kidney stone treatment tomorrow. Activities were really effected at first and hard to get chair to bathroom without getting sick. Improving and can walk around now but does get nauseous. It is 505 better overall. Sleep is not great due to kidney stone pain. 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 Normal is 12 hours. Hobbies reading, hard to read alot and it is confusing. Can't seem to keep plot. Basic ADLs are getting done . - Pain Migraines Pain Intensity (Out of 10): 0 Pain Intensity Range: 0, 7 - Objective Walks slowly but safe and I on firm flat surface back to [facility] room Trasnfers are I with UE. Steps are reciprocal with rail up and down. cervical AROm without pain, slightly hesitant to move but WFL. UE AROM slow but WFL. Sensation UE WNL to gross light touch. strength UE 4-/5 without myotomal problems. - L hallpike nancy. - roll test. Slight dizzyness with R Hallpike nancy, no obvious nystagmus but asasymmetrical dizzyness. Oculmotor: - ocular tilt, - skew eye deviation, Slight + R head thrust. no nystagmus with gaze or head shake. Pursuit and Saccades appear normal and asymptomatic. VOR H give 6/10 dizzy/nausea after 30 seconds for about 15 seconds. - Balance/Special Test Scores Functional Gait Assessment Score: 27 % Disability: 10.0000 CATSIB Score (Max score 120 seconds): 92 Dizziness Score: 38 - Goals Goal 1:: Pt feel 90% back to normal and ablke to tolerate fullk day work. Goal Time Frame: 4-6 Weeks Goal 2:: 30/30 FGA to improve mobility and safety Goal Time Frame: 4-6 Weeks Goal 3:: Pt feel like she can read and work without increased symptoms. Goal Time Frame: 4-6 Weeks Goal 4:: DHI score <10 Goal Time Frame: 4-6 Weeks - Rehabilitation Potential Physical Therapy Diagnosis: vestibular concerns causing balance and focus difficulty. Rehabilitation Potential: Good - Anticipated Interventions Patient/Client Instruction: Educate patient on: Condition, Plan of Care For the Purpose of:: To improve muscle performance and motor function, To increase tolerance to activity/condition/position Therapeutic Exercise to Include: Balance training Comment: adaptation and positional For the Purpose of:: To improve muscle performance and motor function, To increase tolerance to activity/condition/position, To improve ability of physical actions for home/community/work/leisure, To improve gait and locomotor functions Thank you for the opportunity to evaluate your patient. For Medicare and Medicare HMO plans, please review the plan of care and approve it. It will need to be FAXED BACK to us at [phone] for Medicare purposes. For Medicare only, by signing this I certify the plan of care. Please let me know if there are questions or concerns regarding this plan of care. Physician Signature: Date:
--- NOTE | 2022-04-22 07:06 | HP.PT.NRP ---
JOVAN GRANT was seen in my office for initial evaluation on 03/07/22. The following Plan of Care was established for this patient: Initial Frequency: 1-2x /Week Initial Duration: 4-6 Weeks Patient/Client Instruction: Educate patient on: Condition, Plan of Care For the Purpose of:: To improve muscle performance and motor function, To increase tolerance to activity/condition/position Therapeutic Exercise to Include: Balance training For the Purpose of:: To improve muscle performance and motor function, To increase tolerance to activity/condition/position, To improve ability of physical actions for home/community/work/leisure, To improve gait and locomotor functions This patient was last seen in our office 03/07/22. Pertinent comments regarding their Physical therapy will appear below: Pt seen one visit for evaluation and POC established and visits scheduled. She cancelled her second visit and no showed for the next 3 neglecting to reschedule. At this point, it has been over 6 weeks and I will discontinue due to nonattendance. At this point I will be discontinuing this patient from physical therapy. I would be happy to see this patient again in the future if found appropriate by the physician. Thank you! Chris Yanez, DPT, OCS, CSCS Balance/Gait/Functional tests - Balance/Special Test Scores Functional Gait Assessment Score: 27 % Disability: 10.0000 CATSIB Score (Max score 120 seconds): 92 Dizziness Score: 38
== END 2022-03-07 19:00 | disposition home or self-care (01) ==
LOC: PT 14:24
PROVIDERS: PCP Internal Medicine; Referring Provider Internal Medicine; Visit Provider Internal Medicine
DX: R42 Dizziness and giddiness (principal)
CPT/HCPCS: 97161

== ENCOUNTER 2022-03-08 14:56 | Day surgery (SDC) | payer MEDICARE, SELFPAY ==
[2022-03-08] VITALS (10 sets, daily range): BP systolic 67–118; BP diastolic 40–73; PULSE 66–120; RESP 16–24; TEMP 36.6–37; O2SAT 91–100; BMI 34.7
[2022-03-08] MEDS: Lactated Ringers 1,000 ML 15 ML IV (17:00)
[2022-03-08] MEDS: Cefazolin 2 GM in 0.9% Normal Saline 100 ML IV (17:42)
--- NOTE | 2022-03-08 18:11 | DCINST_ITS ---
Discharge Instructions Diet Discharge Diet: No restrictions Activity Discharge Activity: Return to Normal Activity and [address] (When not taking pain medication) Dressing / Incision Call your doctor if you observe: Fever of 101 or Higher, Inability to urinate and Inability to have a bowel movement Follow Up Care Please Follow Up With: Heather Gibbons MD When: Call the office for follow-up instructions regarding further intervention Test Results: Test results from this visit will be discussed in further detail at your follow- up appointment, if applicable. Discharge Plan Admission Attending Provider: Heather Gibbons Primary Care Provider: Sanjay Sims Discharge Orders/Prescriptions Prescriptions: New cephalexin 500 mg capsule 500 mg PO TID Qty: 15 0RF oxycodone-acetaminophen [Percocet] 5-325 mg tablet 1 tab PO Q8H PRN (Reason: pain) 7 Days Qty: 20 0RF phenazopyridine [Pyridium] 200 mg tablet 200 mg PO TID PRN PRN (Reason: Bladder Spasms) 7 Days Qty: 30 0RF ondansetron HCl [ondansetron HCl] 8 mg tablet 8 mg PO Q8H PRN PRN (Reason: Nausea) 7 Days Qty: 20 0RF Continued rizatriptan [Maxalt] 10 mg tablet 10 mg PO QDAY PRN (Reason: migraines) cyclobenzaprine 10 mg tablet 10 mg PO QHS propranolol 10 mg tablet 10 mg PO BID buspirone 10 mg tablet 10 mg PO BID Label Comments: TAKE 1 TABLET BY MOUTH TWICE DAILY DIRECTED duloxetine [Cymbalta] 30 mg capsule,delayed release(DR/EC) 30 mg PO QHS duloxetine [Cymbalta] 60 mg capsule,delayed release(DR/EC) 60 mg PO QHS rimegepant 75 mg tablet,disintegrating 75 mg PO DAILY PRN (Reason: Migraine Headache) atorvastatin 20 mg tablet 20 mg PO QHS Qty: 90 3RF trazodone 100 mg tablet 350 mg PO QHS gabapentin 300 mg capsule 900 mg PO QHS Label Comments: 300 mg in a.m., 300 mg in afternoon, 900 mg at night promethazine 25 MG tablet 25 mg PO Q8H PRN PRN (Reason: Nausea) gabapentin 300 MG capsule 300 mg PO BID hydrocodone-acetaminophen 1 TABLET tablet 1 tab PO Q4H PRN PRN (Reason: Pain) 2 Days Qty: 10 0RF fluticasone propionate 50 mcg/actuation spray,suspension 1 spray INTRANASAL BID PRN (Reason: Congestion) meclizine 25 MG tablet 25 mg PO Q8H PRN PRN (Reason: Dizziness) Qty: 20 0RF Referrals / Follow Up: Sanjay Sims MD [Primary Care Provider] - Disposition Disposition (needs filled in before D/C Order can be placed): Home, Self Care
--- NOTE | 2022-03-08 18:16 | OP.PCM_ITS ---
Problems Associated Problem List Diagnoses (1) Ureteral calculus: (2) Kidney stone: (3) Hydronephrosis: (4) Urinary tract infection: Report of Operation Date of Procedure: 03/08/22 Pre-Operative Diagnosis: Left renal and ureteral calculi with hydronephrosis and urinary tract infection Post-Operative Diagnosis: Same Surgery/Procedure Performed:: Cystoscopy with left ureteral stent insertion Surgeon: Heather Gibbons Type of Anesthesia: MAC Specimen's removed: None Description of Procedure: The patient is a 51-year-old female who presented to the office with findings of a 1 cm distal left ureteral calculus with hydronephrosis urinary tract infection and left renal calculus. She is having low grade fevers at home. After discussing the risk benefits and alternatives, she agreed to proceed with surgical intervention with ureteral stent insertion. She has had a stent in the past. The patient was taken to the operating room and placed on the operating room table. Anesthesia monitored the head, neck, airway, IV access and vital signs throughout the case. Once anesthesia was appropriately administered the patient was placed into dorsal lithotomy position was prepped and draped in usual sterile fashion. The cystoscope was inserted through the urethra under direct visualization into the urinary bladder. The bladder mucosa revealed no evidence of ulceration, erythema or mass. The left ureteral orifice was identified in correct anatomic position and was easily intubated with 8.035 Glidewire which met resistance at the area of the stone. The Glidewire then moved alongside the stone and was seen on fluoroscopy curling in the renal pelvis. A 6 [place] 26 cm JJ stent was then placed over the wire with good curling in the renal pelvis as well as the urinary bladder. The patient's bladder was then emptied and the case was terminated. She was awakened and taken to the recovery room in good condition. There were no complications during this procedure. Grafts/Implants Used: 6 x 26 JJ stent Admit VTE Documentation VTE Present on Admission: Yes VTE Mechan Device Prophylaxis: SCD's VTE Pharm Prophylaxis ordered?: No Reason prophylaxis not ordered:: Treatment Not Indicated
== END 2022-03-08 19:24 | disposition home or self-care (01) ==
LOC: SDC 14:58 → AC 14:59
PROVIDERS: PCP Internal Medicine; Visit Provider Urology
PROC: (CPT 52332; principal; 2022-03-08 16:50)
DX: N13.6 Pyonephrosis (principal); F31.9 Bipolar disorder, unspecified; N18.30 Chronic kidney disease, stage 3 unspecified; Z87.442 Personal history of urinary calculi; E78.5 Hyperlipidemia, unspecified; Z85.528 Personal history of other malignant neoplasm of kidney
CPT/HCPCS: 52332; 00910; 76000; J7120; C2617; J2405

== ENCOUNTER → 2022-03-30 | Outpatient (CLI) | payer MEDICARE, SELFPAY ==
[2022-03-30 12:06] LABS: Anion Gap 1 (5-15); BUN 16 mg/dL (7-18); Calcium,Total 9.4 mg/dL (8.5-10.1); Chloride 109 mmol/L (98-107); Creatinine, Serum 1.23 mg/dL (0.55-1.02); EST Glomerular Filtration Rate 48 mL/min (>60); Est Glom Filt Rate - Afr Amer 59 mL/min (>60); Glucose 105 mg/dL (74-106); Potassium 3.9 mmol/L (3.5-5.1); Sodium Level 142 mmol/L (136-145)
== END | disposition home or self-care (01) ==
LOC: LAB 10:31
PROVIDERS: PCP Internal Medicine; Visit Provider Internal Medicine
DX: N18.30 Chronic kidney disease, stage 3 unspecified (principal)
CPT/HCPCS: 36415; 80048

== ENCOUNTER 2022-04-14 08:38 | Day surgery (SDC) | payer MEDICARE, SELFPAY ==
[2022-04-14] VITALS (10 sets, daily range): BP systolic 95–142; BP diastolic 64–98; PULSE 69–82; RESP 16–20; TEMP 36.1–36.4; O2SAT 92–100; BMI 34.4
[2022-04-14] MEDS: Lactated Ringers 1,000 ML 15 ML IV (08:55)
--- NOTE | 2022-04-14 09:24 | PCM.OPRPT ---
Problems Associated Problem List Diagnoses (1) Renal stones: Report of Operation Date of Procedure: 04/14/22 Pre-Operative Diagnosis: Left renal and ureteral calculi Post-Operative Diagnosis: Same Surgery/Procedure Performed:: Left ureteral and renal extracorporal shockwave lithotripsy Surgeon: Heather Gibbons Type of Anesthesia: General Specimen's removed: None Description of Procedure: The patient is a 51-year-old female with stones in the left kidney and ureter. She presents for definitive management after having already undergone cystoscopy and ureteral stent insertion. Informed consent has been obtained. The patient was taken to the operating room and placed on the operating room table. Anesthesia monitored the head, neck, airway, IV access and vital signs throughout the case. Once anesthesia was appropriately ministered, the patient was positioned on the lithotripsy table. The stones were identified. 1600 shocks were applied to the left renal calculus and 3000 shocks were applied to the distal left ureteral stone. The stones appeared to be well fragmented at the conclusion of the case. Patient was then awakened and taken to the recovery room in good condition. There were no complications during this procedure. Grafts/Implants Used: None Complications none Admit VTE Documentation VTE Present on Admission: Yes VTE Mechan Device Prophylaxis: SCD's VTE Pharm Prophylaxis ordered?: No Reason prophylaxis not ordered:: Treatment Not Indicated
[2022-04-14] MEDS: Cefazolin 2 GM in 0.9% Normal Saline 100 ML IV (10:20)
--- NOTE | 2022-04-14 10:48 | DCINST_ITS ---
Discharge Instructions Diet Discharge Diet: No restrictions Activity Discharge Activity: Return to Normal Activity and [address] (When not taking narcotics) May resume sexual activity in: No Restrictions Dressing / Incision Call your doctor if you observe: Fever of 101 or Higher, Inability to urinate and Inability to have a bowel movement Follow Up Care Please Follow Up With: Heather Gibbons MD When: In 2 to 3 weeks in the office with a KUB. Call for appointment Test Results: Test results from this visit will be discussed in further detail at your follow- up appointment, if applicable. Discharge Plan Admission Attending Provider: Heather Gibbons Primary Care Provider: Sanjay Sims Discharge Orders/Prescriptions Prescriptions: New oxycodone-acetaminophen [oxycodone-acetaminophen] 5-325 mg tablet 1 tab PO Q8H PRN PRN (Reason: Pain) 7 Days Qty: 20 0RF cephalexin [cephalexin] 500 mg capsule 500 mg PO Q12 3 Days Qty: 6 0RF Continued rizatriptan [Maxalt] 10 mg tablet 10 mg PO QDAY PRN (Reason: migraines) cyclobenzaprine 10 mg tablet 10 mg PO QHS propranolol 10 mg tablet 10 mg PO BID buspirone 10 mg tablet 10 mg PO BID Label Comments: TAKE 1 TABLET BY MOUTH TWICE DAILY DIRECTED duloxetine [Cymbalta] 30 mg capsule,delayed release(DR/EC) 30 mg PO QHS duloxetine [Cymbalta] 60 mg capsule,delayed release(DR/EC) 60 mg PO QHS rimegepant 75 mg tablet,disintegrating 75 mg PO DAILY PRN (Reason: Migraine Headache) atorvastatin 20 mg tablet 20 mg PO QHS Qty: 90 3RF trazodone 100 mg tablet 350 mg PO QHS gabapentin 300 mg capsule 900 mg PO QHS Label Comments: 300 mg in a.m., 300 mg in afternoon, 900 mg at night promethazine 25 MG tablet 25 mg PO Q8H PRN PRN (Reason: Nausea) gabapentin 300 MG capsule 300 mg PO BID fluticasone propionate 50 mcg/actuation spray,suspension 1 spray INTRANASAL BID PRN (Reason: Congestion) oxycodone-acetaminophen [Percocet] 5-325 mg tablet 1 tab PO Q8H PRN (Reason: pain) 7 Days Qty: 20 0RF ondansetron HCl 8 mg tablet 8 mg PO Q8H PRN PRN (Reason: Nausea) 7 Days Qty: 20 0RF Referrals / Follow Up: Sanjay Sims MD [Primary Care Provider] - Disposition Disposition (needs filled in before D/C Order can be placed): Home, Self Care
== END 2022-04-14 14:12 | disposition home or self-care (01) ==
LOC: SDC 08:38 → AC 08:40
PROVIDERS: PCP Internal Medicine; Referring Provider Urology; Visit Provider Urology
PROC: (CPT 50590; principal; 2022-04-14 10:00)
DX: N20.2 Calculus of kidney with calculus of ureter (principal); N18.30 Chronic kidney disease, stage 3 unspecified; F32.A Depression, unspecified; F41.9 Anxiety disorder, unspecified; G47.33 Obstructive sleep apnea (adult) (pediatric); F12.90 Cannabis use, unspecified, uncomplicated; Z79.899 Other long term (current) drug therapy
CPT/HCPCS: 50590; 00873; J7120; J2405

== ENCOUNTER → 2022-05-02 | Outpatient (CLI) | payer MEDICARE, SELFPAY ==
--- NOTE | 2022-05-02 09:15 | RAD_ITS ---
INDICATION: KIDNEY STONE EXAMINATION/TECHNIQUE: X-RAY - XR Abdomen 1 View COMPARISON: CT abdomen and pelvis from 03/03/2022 FINDINGS: Support devices: Appropriate positioning of a left double-J nephroureteral stent. There appear to be 1-2 punctate calcifications in the mid to upper left kidney. The largest calcification in the left lower pole seen on prior CT is not definitively visualized. Nonobstructive bowel gas pattern. Visualized bones are unremarkable. RAD/Abdomen Single View IMPRESSION: As above. Electronically Signed: Sunny Jones, at 13:06 EDT ,
== END | disposition home or self-care (01) ==
PROVIDERS: PCP Internal Medicine; Referring Provider Urology; Visit Provider Urology
DX: N20.0 Calculus of kidney (principal)
CPT/HCPCS: 74018

== ENCOUNTER → 2023-01-10 | Outpatient (CLI) | payer MEDICARE, SELFPAY ==
[2023-01-10 18:59] LABS: Amphetamine Urine VISTA NEGATIVE (<1000 ng/mL); Barbiturate Urine VISTA NEGATIVE (< 200 ng/mL); Benzodiazepine Urine VISTA NEGATIVE (< 200 ng/mL); Cocaine Urine VISTA NEGATIVE (< 300 ng/mL); Ecstacy Urine VISTA POSITIVE (< 500 ng/mL); Methadone Urine VISTA NEGATIVE (< 300 ng/mL); PCP Urine VISTA NEGATIVE (< 25 ng/mL); THC Urine VISTA NEGATIVE (< 50 ng/mL); Vista UDS pH Range 4
== END | disposition home or self-care (01) ==
LOC: LABSPEC 17:44 → LAB 01-11 07:07
PROVIDERS: PCP Internal Medicine; Visit Provider Anesthesiology Pain Medicine
DX: F11.20 Opioid dependence, uncomplicated (principal)
CPT/HCPCS: 80307

== ENCOUNTER → 2023-01-20 | Outpatient (CLI) | payer MEDICARE, SELFPAY ==
[2023-01-20 12:43] LABS: Absolute Lymphocyte Count 2.01 X10^3/uL (0.83-4.51); Absolute Neutrophil Count 4.4 X10^3/uL (2.0-7.7); Basophil# 0.06 X10^3/uL; Basophil% 0.8 % (0-1); Eosinophil# 0.24 X10^3/uL; Eosinophils% 3.4 % (0-5); Hematocrit 38.4 % (37-47); Hemoglobin 12.7 g/dL (12.0-15.0); Lymphocyte # 2.01 X10^3/ul (0.83-4.51); Lymphocyte % 28.3 % (19-41); Mean Corp Hgb Conc 33.1 g/dL (32-36); Mean Corpuscular Hgb 31.3 pg (27.0-32.0); Mean Corpuscular Volume 94.6 fL (81-99); Monocyte% 5.6 % (0-10); NRBC Flagged by Analyzer 0 % (0-5); Neutrophil # 4.36 X10^3/uL (2.7-7.7); Neutrophil % 61.5 % (47-70); Platelet Count 218 K/mm3 (150-450); RBC Distribution Width CV 12.7 % (11.6-14.6); RBC Distribution Width SD 43.8 fl (35.1-43.9); Red Blood Count 4.06 M/mm3 (4.2-5.4); White Blood Count 7.1 K/mm3 (4.4-11.0)
[2023-01-20 13:21] LABS: ALB/GLOB Ratio 0.8 RATIO (0.9-2.4); AST(SGOT) 23 U/L (15-37); Alanine Aminotransfer ALT/SGPT 24 U/L (13-56); Albumin, Serum 3.6 g/dL (3.2-5.0); Alkaline Phosphatase 133 U/L (45-117); Anion Gap 7 (5-15); BUN 17 mg/dL (7-18); BUN/Creat Ratio 13.2 RATIO (10-20); Calcium,Total 9.5 mg/dL (8.5-10.1); Chloride 107 mmol/L (98-107); Cholesterol 146 mg/dL (200); Creatinine, Serum 1.29 mg/dL (0.55-1.02); EST Glomerular Filtration Rate 46 mL/min (>60); Est Glom Filt Rate - Afr Amer 55 mL/min (>60); Globulin 4.3 g/dL (2.2-4.2); Glucose 106 mg/dL (74-106); High Density Lipoprotein 32 mg/dL; Protein, Total 7.9 g/dL (6.4-8.2); Sodium Level 143 mmol/L (136-145); Triglycerides 252 mg/dL; Very Low Density Lipoprotein 50 mg/dL (5-40)
== END | disposition home or self-care (01) ==
LOC: BIMLAB 10:47
PROVIDERS: PCP Internal Medicine; Referring Provider Internal Medicine; Visit Provider Internal Medicine
DX: E87.6 Hypokalemia (principal); E78.5 Hyperlipidemia, unspecified
CPT/HCPCS: 36415; 80053; 80061; 85025

== ENCOUNTER → 2023-06-23 | Outpatient (CLI) | payer MEDICARE, SELFPAY ==
--- NOTE | 2023-06-23 12:30 | RAD_ITS ---
INDICATION: Other intervertebral disc degeneration, thoracic region EXAMINATION/TECHNIQUE: X-RAY - XR Spine Thoracic 2 Views COMPARISON: None. FINDINGS: 2 views of the thoracic spine. BONES: Thoracic dextroscoliosis. Normal anatomic alignment without evidence of fracture or subluxation. No concerning bony lesion or abnormal sclerosis to suggest lesion. DISCS/JOINTS: No significant degenerative change. SOFT TISSUES: Unremarkable. RAD/Thoracic Spine 2 Views IMPRESSION: Unremarkable thoracic spine. If there is persistent clinical concern for spine fracture and this is a trauma patient, recommend dedicated thoracic spine CT. Electronically Signed: Jimmy Flores MD at 7:06 EDT ,
== END | disposition home or self-care (01) ==
PROVIDERS: PCP Internal Medicine; Referring Provider Anesthesiology Pain Medicine; Visit Provider Anesthesiology Pain Medicine
DX: M51.36 Other intervertebral disc degeneration, lumbar region (principal)
CPT/HCPCS: 72070

== ENCOUNTER → 2023-07-20 | Outpatient (CLI) | payer MEDICARE, SELFPAY ==
--- NOTE | 2023-07-20 06:40 | MRI_ITS ---
STUDY: MRI CERVICAL SPINE WITHOUT CONTRAST REASON FOR EXAM: Female, 53 years old. Upper back pain and bilateral arms burning. Radiculopathy. TECHNIQUE: Standardized fat and water weighted pulse sequences were obtained in the sagittal and axial planes. COMPARISON: MRI cervical spine without contrast 02/19/2022. Cervical spine radiographs 03/25/2022. FINDINGS: Normal foramen magnum and brainstem-cervical cord junction. Normal craniovertebral junction. Normal anterior atlantoaxial articulation. Normal odontoid process. Straightening of the C-spine curvature is unchanged. Normal vertebral bodies and posterior osseous elements. C2-3: Normal endplates. Normal disc height, signal and morphology. Normal central canal and intervertebral neural foramina. C3-4: Normal endplates. Minimal disc space height narrowing. Minimal ventral extradural defect due to posterior marginal spurs and small posterior bulging annulus. Normal central canal and intervertebral neural foramina. C4-5: Normal endplates. Minimal disc space height narrowing. Mild ventral extradural defect due to posterior marginal spurs. Normal central canal and right intervertebral neural foramen. Moderate stenosis of the left intervertebral neural foramen. C5-6: Normal endplates. Moderate disc space height narrowing. Mild ventral extradural defect due to posterior marginal spurs. Normal central canal and intervertebral neural foramina. C6-7: Normal endplates. Mild disc space height narrowing. Mild ventral extradural defect due to posterior marginal spurs. Normal central canal and intervertebral neural foramina. C7-T1: Modic type II degenerative vertebral marrow fat infiltration underneath the vertebral endplates. Mild disc space height narrowing. Normal central canal and intervertebral neural foramina. T1-T2, T2-T3, T3-4, T4-T5 and T5-T6: (Sagittal only). Normal endplates. Normal disc height and morphology. Normal central canal and intervertebral neural foramina. Normal cervical cord. Normal upper thoracic spinal cord. Normal included portions of brainstem and cerebellum. Normal visualized soft tissue structures. MRI/Spine Cervical (Routine) IMPRESSION: 1. No MRI evidence of cervical extruded disc fragment 2. Moderate stenosis of the left C4-C5 intervertebral neural foramen due to osteophytic encroachment. 3. Normal cervical spinal cord. 4. No significant interval change when compared to 02/19/2022. Electronically Signed: Logan Malik MD at 9:27 EDT ,
== END | disposition home or self-care (01) ==
LOC: MRI 06:36
PROVIDERS: PCP Internal Medicine; Referring Provider Anesthesiology Pain Medicine; Visit Provider Anesthesiology Pain Medicine
DX: M54.12 Radiculopathy, cervical region (principal)
CPT/HCPCS: 72141

== ENCOUNTER → 2023-09-01 | Outpatient (CLI) | payer MEDICARE, SELFPAY ==
[2023-09-01 16:53] LABS: Anion Gap 2 (5-15); BUN 15 mg/dL (7-18); BUN/Creat Ratio 12.5 RATIO (10-20); Calcium,Total 9.5 mg/dL (8.5-10.1); Chloride 107 mmol/L (98-107); EST Glomerular Filtration Rate 50 mL/min (>60); Est Glom Filt Rate - Afr Amer 60 mL/min (>60); Glucose 98 mg/dL (74-106); Potassium 4.1 mmol/L (3.5-5.1); Sodium Level 144 mmol/L (136-145)
== END | disposition home or self-care (01) ==
LOC: BIMLAB 14:48
PROVIDERS: PCP Internal Medicine; Referring Provider Internal Medicine; Visit Provider Internal Medicine
DX: N18.30 Chronic kidney disease, stage 3 unspecified (principal)
CPT/HCPCS: 36415; 80048

== ENCOUNTER → 2024-02-20 | Outpatient (CLI) | payer MEDICARE, SELFPAY ==
[2024-02-20 19:12] LABS: Amphetamine Urine VISTA NEGATIVE (<1000 ng/mL); Barbiturate Urine VISTA NEGATIVE (< 200 ng/mL); Benzodiazepine Urine VISTA NEGATIVE (< 200 ng/mL); Cocaine Urine VISTA NEGATIVE (< 300 ng/mL); Ecstacy Urine VISTA POSITIVE (< 500 ng/mL); Methadone Urine VISTA NEGATIVE (< 300 ng/mL); PCP Urine VISTA NEGATIVE (< 25 ng/mL); THC Urine VISTA NEGATIVE (< 50 ng/mL); Vista UDS pH Range 6
== END | disposition home or self-care (01) ==
PROVIDERS: PCP Internal Medicine; Visit Provider Anesthesiology Pain Medicine
DX: F11.20 Opioid dependence, uncomplicated (principal)
CPT/HCPCS: 80307

== ENCOUNTER → 2024-03-27 | Outpatient (CLI) | payer MEDICARE, SELFPAY ==
[2024-03-27 15:20] LABS: HIV - WCH Non-Reactive (Nonreactive); Hepatitis B Surface Antibody Non-Reactive; Hepatitis B Surface Antigen Non-Reactive (Nonreactive); Hepatitis C Antibody Non-Reactive (Nonreactive)
== END | disposition home or self-care (01) ==
PROVIDERS: PCP Internal Medicine; Referring Provider Anesthesiology; Visit Provider Anesthesiology
DX: Z77.21 Contact with and (suspected) exposure to potentially hazardous body fluids (principal)
CPT/HCPCS: 86703; 86706; 86803; 87340

== ENCOUNTER → 2024-04-29 | Outpatient (CLI) | payer MEDICARE, SELFPAY ==
--- NOTE | 2024-04-29 13:49 | BI_ITS ---
MAMMOGRAPHY - BILATERAL SCREENING REASON FOR EXAM: Female, 53 years old. Routine annual screening examination. PERTINENT HISTORY: Mother with breast cancer. Grandmother with breast cancer. TECHNIQUE: Digital bilateral breast ivan (3D mammographic acquisition) in the CC and MLO projections. 2-D mediolateral oblique (MLO) and craniocaudad (CC) views of both breasts were obtained. CAD: Full Field Digital Mammography with Computer Added Detection was performed. COMPARISON: Comparison is made with prior study dated April 09, 2021 and April 06, 2020. FINDINGS: Breast Composition: The breasts are heterogeneously dense, which may obscure small masses. There are no dominant masses or suspicious calcifications. Stable small bilateral axillary lymph nodes. No other significant abnormalities are identified. There has been no significant change since the prior study. BI/SCRN MAMM (CAD)W/IVAN BILAT IMPRESSION: Stable bilateral screening mammogram. Yearly follow-up mammogram recommended. (A) ASSESSMENT CATEGORY: BIRADS Category 2: Benign. A letter regarding these results will be sent to the patient by the facility within 30 days. Approximately 10% of breast cancers are not detected by mammography. A normal mammogram should not delay biopsy of a clinically suspicious abnormality. [id number] Electronically Signed: James Kuhn MD at 15:23 EDT ,
== END | disposition home or self-care (01) ==
LOC: OPBI 13:49
PROVIDERS: PCP Internal Medicine; Referring Provider Internal Medicine; Visit Provider Internal Medicine
DX: Z12.31 Encounter for screening mammogram for malignant neoplasm of breast (principal); Z80.3 Family history of malignant neoplasm of breast
CPT/HCPCS: 77063; 77067

== ENCOUNTER 2024-05-14 18:54 | Emergency (ER) | payer MEDICARE, SELFPAY ==
[2024-05-14 18:55] VITALS: BP 143/85; PULSE 101; RESP 20; TEMP 36.1; O2SAT 100; BMI 34.0
--- NOTE | 2024-05-14 20:04 | EX.ED.DYSGE1 ---
HPI History of Present Illness Chief Complaint: Flank Pain Informant: patient Onset/Context/Timing Onset: Days (5) Context: Gradual Onset Timing: Continuous Quality: Burning, cramping Location: Left flank Worsened by: Nothing Relieved by: Nothing Narrative Narrative: Patient presents with left flank pain that has been getting worse over the last 5 days. Patient states it has been constant but waxes and wanes. Patient describes it as burning and cramping. Patient states that his localized to the left flank area. Patient states nothing makes it better and nothing makes it worse. Patient does have a history of kidney stones. Patient admits to some nausea but denies any vomiting. Patient denies any dysuria or hematuria. [facility] Medical History Fatty infiltration of liver Flu vaccine need Obesity (BMI 30-39.9) Post-menopausal Urinary tract infection Hydronephrosis Ureteral calculus Marijuana use History of steroid therapy Easy bruising Leg cramps Renal stones Abdominal pain Acute abdominal pain in left flank Hypokalemia Preventative health care Fatigue History of stress test Bipolar disorder Cancer Migraine headache Seizures Blackout History of IBS Gastric reflux Non-smoker Sleep apnea CPAP (continuous positive airway pressure) dependence Shortness of breath on exertion History of edema Health care maintenance Anxiety and depression Hair loss CKD (chronic kidney disease), stage III Hx of renal cell cancer Chronic neck and back pain Hypercholesterolemia Knee pain Severe headache Stage 3 chronic kidney disease Neuropathy Degenerative disc disease CORTEZ (obstructive sleep apnea) Kidney stones Fibromyalgia Hyperlipemia GERD (gastroesophageal reflux disease) IBS (irritable bowel syndrome) History of renal carcinoma Anxiety Depression Home Medications ?Medication ?Instructions ?Recorded ?Last Taken ?Type buspirone 10 mg tablet 10 mg PO BID 05/12/20 03/08/22 06:30 History fluticasone propionate 50 1 spray intranasal BID PRN 08/30/21 Unknown History mcg/actuation nasal Congestion spray,suspension trazodone 100 mg tablet 200 mg PO QHS 06/09/23 Unknown History cyclobenzaprine 10 mg tablet 10 mg PO TID PRN 06/27/23 Unknown History hydrocodone-acetaminophen 5-325mg 1 tab PO TID PRN 06/27/23 Unknown History 5mg-325mg atorvastatin 20 mg tablet 20 mg PO QHS #90 tabs 09/01/23 Unknown Rx promethazine 25 mg tablet 25 mg PO TID PRN Nausea #90 tabs 11/28/23 Unknown Rx rimegepant 75 mg disintegrating 75 mg PO DAILY PRN migraine 11/28/23 Unknown Rx tablet (Nurtec ODT) headache #16 tabs amlodipine 5 mg tablet 5 mg PO DAILY #30 tabs 04/15/24 Unknown Rx bupropion HCl 150 mg 24 hr tablet, 150 mg PO QAM 04/15/24 Unknown History extended release gabapentin 300 mg capsule 900 mg (3 x 300 mg) PO QHS #90 caps 04/15/24 Unknown Rx rizatriptan 10 mg tablet (Maxalt) 10 mg .Route .COMPLEX #9 tabs 04/15/24 Unknown Rx semaglutide (weight loss) 0.5 0.5 mg (0.5 mL) subcut QWEEK #2 mL 04/22/24 Unknown Rx mg/0.5 mL subcutaneous pen injector (Wegovy) Allergy/AdvReac Type Severity Reaction Status Date / Time sulfamethoxazole AdvReac Severe diarrhea Verified 05/14/24 18:55 norfloxacin (From Noroxin) AdvReac Mild Rash Verified 05/14/24 18:55 tizanidine HCl (From AdvReac Mild Rash Verified 05/14/24 18:55 Zanaflex) Penicillins AdvReac Unknown Rash Verified 05/14/24 18:55 topiramate (From Topamax) AdvReac Unknown Other Verified 05/14/24 18:55 cefuroxime AdvReac Diarrhea Verified 05/14/24 18:55 Family History Father Cancer liver Colon cancer Hypertension Hyperlipemia Depression Mother Depression Thyroid disorder Grandmother Breast cancer Surgical History History of cystoscopy History of orthopedic surgery uterine ablation kidney stone surgery delivery delivered History of cholecystectomy c section H/O partial nephrectomy Social History Smoking Status: Never smoker alcohol intake: never substance use type: does not use caffeine: Yes what type of physical activity do you participate in: none seatbelt use: always do you feel safe at home: Yes additional social history: [employer]- Self Employed Patient is unemployed ROS ROS ED Constitutional Constitutional ED: Denies chills or fever(s) Eyes Eyes: Denies blurry vision or change in vision ENT ENT ED: Denies rhinorrhea or sore throat Cardiovascular Cardiovascular: Denies chest pain or palpitations Respiratory/Chest Respiratory/Chest: Denies cough or dyspnea Gastrointestinal Gastrointestinal: Reports nausea; Denies vomiting Genitourinary Genitourinary ED: Denies dysuria or hematuria Musculoskeletal Musculoskeletal: Reports back pain; Denies neck pain Integumentary Denies abscess or rash Neurologic Neurologic: Denies headache(s) or weakness Allergic/Immunologic Allergic/Immunologic ED: Denies mouth swelling or urticaria EXAM Physical Exam Const Vital Signs: 05/14/24 18:55 05/14/24 20:55 05/14/24 22:00 Temperature 97 F L Temperature Source Temporal Pulse Rate 101 H 91 92 Respiratory Rate 20 H 16 Blood Pressure 143/85 H 116/65 124/64 H Blood Pressure Mean 104 82 84 Pulse Ox 100 98 92 Oxygen Delivery Method Room Air Room Air Room Air Positive well nourished and well developed General Appearance ED: well developed and NAD HEENT Reports moist mucous membranes Neck supple and no JVD Resp normal respiratory effort and clear to auscultation bilaterally Cardio regular rate and regular rhythm GI non-tender and non-distended Palpation: soft and tender LUQ; Negative for guarding or rebound tenderness present Back/Spine General Back: CVA tenderness left Neuro oriented x3, CN's II-XII intact bilaterally and no sensory deficits noted Sensorium / Orientation: alert Motor Exam: strength 5/5 throughout Psych mental status grossly normal MDM MDM MDM Narrative Medical decision making narrative: Differential diagnose includes ureteral calculus, pyelonephritis, gastroenteritis, urinary tract infection, dehydration, and electrolyte abnormality. CT scan of the abdomen pelvis will be obtained to assess for ureteral calculus. CBC will be obtained to assess for leukocytosis or anemia. Comprehensive metabolic profile will be obtained to assess for hepatic function, renal function, and electrolyte abnormality. Serum hCG will be obtained to assess for . Urinalysis will be obtained to assess for urinary tract infection and hematuria. Lab Data Attestation: I reviewed the patient's lab results. Lab results narrative: CBC was reviewed and was within normal limits. Comprehensive metabolic profile was reviewed. BUN was slightly elevated at 22 and creatinine was slightly elevated at 1.45. These are consistent with previous results. Alkaline phosphatase is slightly elevated at 140. The remainder was within normal limits. Serum hCG was reviewed and was negative. Urinalysis was reviewed. Leukocyte esterase was 100. There are 0-5 white blood cells and 0-5 epithelial cells. There is no bacteria noted. Labs: Laboratory Results - last 24 hr 05/14/24 05/14/24 20:00 20:50 WBC 10.4 RBC 4.07 L Hgb 12.6 Hct 38.0 MCV 93.4 MCH 31.0 MCHC 33.2 RDW Std Deviation 42.6 RDW Coeff of [place] 12.5 Plt Count 201 MPV 8.1 Immature Gran % (Auto) 0.500 Neut % (Auto) 70.9 H Lymph % (Auto) 21.7 [place] % (Auto) 3.8 Eos % (Auto) 2.6 Baso % (Auto) 0.5 Absolute Neuts (auto) 7.4 Absolute Lymphs (auto) 2.25 Nucleated RBC % 0 Sodium 140 Potassium 3.5 Chloride 105 Carbon Dioxide 29.0 Anion Gap 6 BUN 22 H Creatinine 1.45 H Estim Creat Clear Calc 51.06 Est GFR (MDRD) Af Amer 48 L Est GFR (MDRD) Non-Af 40 L BUN/Creatinine Ratio 15.2 Glucose 110 H Calcium 9.8 Total Bilirubin 0.50 AST 17 ALT 21 Alkaline Phosphatase 140 H Total Protein 8.3 H Albumin 3.7 Globulin 4.6 H Albumin/Globulin Ratio 0.8 L Serum , Qual NEGATIVE Urine Color Yellow Urine Clarity Sl. Cloudy Urine pH 5.0 Ur Specific [place] 1.030 Urine Protein 15 H Urine Glucose (UA) Normal Urine Ketones Negative Urine Occult Blood 10 H Urine Nitrite Negative Urine Bilirubin Negative Urine Urobilinogen 1 H Ur Leukocyte Esterase 100 H Urine RBC 0 SEEN Urine WBC 0-5 SEEN Ur Squamous Epith Cells 0-5 SEEN Calcium Oxalate Crystal 2+ Urine Bacteria 0 SEEN Urine Mucus 1+ Radiography Diagnostic Testing: Clinical Impression(s) from Imaging Studies Abdomen/Pelvis CT 05/14/24 20:17 IMPRESSION: Small right renal stone. No hydronephrosis. No obstruction. Electronically Signed: Greg Workman MD at 21:36 EDT , CT scan of the abdomen pelvis was obtained. There is a small right renal stone. There is no hydronephrosis. There is no obstruction. There is no other acute abnormality noted. This was interpreted by the radiologist and was also independently reviewed by myself. EKG Initial EKG: Attestation: I personally reviewed and interpreted this EKG as follows: Interpretation: Sinus Rhythm (88) and No Acute Injury Pattern Comments: EKG was obtained. On my independent interpretation, it showed a normal sinus rhythm with a rate of 88. [place] interval, QRS interval, and QTc intervals were all normal. [place] was normal. There are no acute ST or T wave changes. Prior EKG tracings: available for review Prior: Unchanged (05/30/2018) Additional Tests and Interventions Additional Tests or Interventions: Patient started having some pain in her epigastric area as of this, EKG was ordered by nursing staff. Treatment and Re-Evaluation :: Patient was given IV fluids, morphine, and Zofran. Patient was given a GI cocktail. Patient was feeling better on reevaluation. Patient was instructed to start with a bland diet. Patient was instructed to advance as tolerated. Patient was instructed to follow-up with her primary care physician in 5 to 7 days. Patient understood and was agreeable with the plan. All questions were answered. Discharge Plan Triage Chief Complaint: Flank Pain ED Provider: Chris Molina Dx/Rx/DC Orders Clinical Impression: Left flank pain, Fibromyalgia Instructions: ED Flank Pain, Uncertain Cause Prescriptions: No Action cyclobenzaprine 10 mg tablet 10 mg PO TID PRN buspirone 10 mg tablet 10 mg PO BID Patient Comments: TAKE 1 TABLET BY MOUTH TWICE DAILY DIRECTED hydrocodone-acetaminophen 5-325 mg tablet 1 tab PO TID PRN trazodone 100 mg tablet 200 mg PO QHS atorvastatin 20 mg tablet 20 mg PO QHS Qty: 90 3RF Nurtec ODT 75 mg tablet,disintegrating 75 mg PO DAILY PRN (Reason: migraine headache) Qty: 16 6RF promethazine 25 mg tablet 25 mg PO TID PRN (Reason: Nausea) Qty: 90 4RF amlodipine 5 mg tablet 5 mg PO DAILY Qty: 30 5RF rizatriptan [Maxalt] 10 mg tablet 10 mg .ROUTE .COMPLEX Qty: 9 5RF Rx Instructions: 10 mg; Take 1 tablet orally every 2 hours as needed up to 3 tablets/day gabapentin 300 mg capsule 900 mg PO QHS Qty: 90 5RF bupropion HCl 150 mg tablet extended release 24 hr 150 mg PO QAM Wegovy 0.5 mg/0.5 mL pen injector 0.5 mg subcut QWEEK Qty: 2 1RF fluticasone propionate 50 mcg/actuation spray,suspension 1 spray INTRANASAL BID PRN (Reason: Congestion) Primary Care Provider: Sanjay Sims Referrals: Sanjay Sims MD [Primary Care Provider] - 5-7 Days Print Language: Ugandan Disposition Disposition: Home, Self Care
[2024-05-14 20:17] LABS: Bacteria 0 SEEN /hpf (None Seen); Color, Urine Yellow (Yellow); Glucose, Dipstick Normal (Normal); Ketone-Dipstick Negative (Negative); Leukocyte Esterase-Dipstick 100 /ul (Negative); Nitrite-Dipstick Negative (Negative); Occult Blood-Urine 10 /ul (Negative); Protein-Dipstick 15 mg/dl (Negative); Red Blood Cells-Urine 0 SEEN /hpf (0-5); Urine Bilirubin Dipstick Negative (Negative); Urine Clarity Sl. Cloudy (Clear); Urine Urobilinogen 1 mg/dl (Normal)
--- NOTE | 2024-05-14 20:17 | CT_ITS ---
STUDY: CT ABDOMEN AND PELVIS WITHOUT CONTRAST REASON FOR EXAM: Female, 53 years old. Flank pain RADIATION DOSAGE (If Supplied By Facility): CTDIvol = ( 16.09 ) mGy, DLP = ( 852.03 ) mGycm TECHNIQUE: Transaxial images were obtained from the dome of the diaphragm to the symphysis pubis without oral contrast, and without intravenous contrast. Sagittal and coronal images were reconstructed. Individualized dose optimization techniques were used for this CT. COMPARISON: Including March 03, 2022 FINDINGS: The visualized lung bases are unremarkable. The visualized portions of the heart are within normal limits. Normal liver. The gallbladder is not seen consistent with cholecystectomy . There is increased size of 2.0 cm hypodensity in the spleen. Normal pancreas. Normal bilateral adrenal glands. There is 0.2 cm calcification of the right kidney. There is postoperative change at the upper pole of the left kidney. Normal visualized stomach. Normal small intestine. Normal colon. The appendix is visualized and appears normal. There is mild atherosclerotic calcification of the abdominal aorta, without a demonstrated aneurysm. Normal inferior vena cava. Normal retroperitoneum. Normal urinary bladder. The uterus is lobular consistent with fibroids. There is no free fluid in the abdomen or pelvis. Normal abdominal wall. There is degenerative change of the spine. CT/Abdomen/Pelvis without Cont IMPRESSION: Small right renal stone. No hydronephrosis. No obstruction. Electronically Signed: Greg Workman MD at 21:36 EDT ,
[2024-05-14 20:37] LABS: White Blood Cells 0-5 SEEN /hpf (0-5)
[2024-05-14 20:38] LABS: Calcium Oxalate Crystals Ur 2+ /hpf (<or=2+); Mucous, Urine 1+ /hpf (<or=2+); Squamous Epithelial Cells - UA 0-5 SEEN /hpf (5-10)
[2024-05-14] MEDS: Morphine 4 MG/ML Syringe IV (20:44)
[2024-05-14] MEDS: Ondansetron 4 MG/2 ML Vial IV (20:44)
[2024-05-14] MEDS: 0.9% Normal Saline (1000mL) 1,000 ML 1000 ML IV (20:44)
[2024-05-14 20:54] LABS: Absolute Lymphocyte Count 2.25 X10^3/uL (0.83-4.51); Absolute Neutrophil Count 7.4 X10^3/uL (2.0-7.7); Basophil# 0.05 X10^3/uL; Basophil% 0.5 % (0-1); Eosinophil# 0.27 X10^3/uL; Eosinophils% 2.6 % (0-5); Hemoglobin 12.6 g/dL (12.0-15.0); Lymphocyte # 2.25 X10^3/ul (0.83-4.51); Lymphocyte % 21.7 % (19-41); Mean Corp Hgb Conc 33.2 g/dL (32-36); Mean Corpuscular Volume 93.4 fL (81-99); Mean Platelet Vol. 8.1 fl (6.2-12.0); Monocyte# 0.39 X10^3/uL; Monocyte% 3.8 % (0-10); NRBC Flagged by Analyzer 0 % (0-5); Neutrophil # 7.35 X10^3/uL (2.7-7.7); Neutrophil % 70.9 % (47-70); Platelet Count 201 K/mm3 (150-450); RBC Distribution Width CV 12.5 % (11.6-14.6); RBC Distribution Width SD 42.6 fl (35.1-43.9); Red Blood Count 4.07 M/mm3 (4.2-5.4); White Blood Count 10.4 K/mm3 (4.4-11.0)
[2024-05-14 20:55] VITALS: BP 116/65; PULSE 91; O2SAT 98
[2024-05-14 21:04] LABS: Internal QC Validated? YES +Cl - CLEAR BKGD; Pregnancy, Serum, hCG Quali. NEGATIVE Negative; Record Kit Lot#, Serum Preg. 772476
[2024-05-14 21:11] LABS: ALB/GLOB Ratio 0.8 RATIO (0.9-2.4); AST(SGOT) 17 U/L (15-37); Alanine Aminotransfer ALT/SGPT 21 U/L (13-56); Albumin, Serum 3.7 g/dL (3.2-5.0); Alkaline Phosphatase 140 U/L (45-117); Anion Gap 6 (5-15); BUN 22 mg/dL (7-18); BUN/Creat Ratio 15.2 RATIO (10-20); Calcium,Total 9.8 mg/dL (8.5-10.1); Chloride 105 mmol/L (98-107); Creatinine, Serum 1.45 mg/dL (0.55-1.02); EST Glomerular Filtration Rate 40 mL/min (>60); Est Glom Filt Rate - Afr Amer 48 mL/min (>60); Estimated Creatinine Clearance 51.06 ml/min; Globulin 4.6 g/dL (2.2-4.2); Glucose 110 mg/dL (74-106); Potassium 3.5 mmol/L (3.5-5.1); Protein, Total 8.3 g/dL (6.4-8.2); Sodium Level 140 mmol/L (136-145)
[2024-05-14 22:00] VITALS: BP 124/64; PULSE 92; RESP 16; O2SAT 92
--- NOTE | 2024-05-14 22:03 | EKG12_ITS ---
Test Reason : CP Blood Pressure : / mmHG Vent. Rate : 088 BPM Atrial Rate : 088 BPM P-R Int : 130 ms QRS Dur : 084 ms QT Int : 368 ms P-R-T Axes : 022 010 053 degrees QTc Int : 445 ms Normal sinus rhythm Normal ECG Confirmed by Soto Cardona ([id number]), acquisition editor MONIK ROMO ([id number]) on 05/15/2024 10:13:12 AM Referred By: MANASA Confirmed By:Soto Cardona
[2024-05-14] MEDS: Lidocaine 2% Viscous15 ML UDC 15 ML PO (22:31)
[2024-05-14] MEDS: Mag /Aluminum/Simeth WCH UDC 30 ML ORAL.SUSP PO (22:31)
[2024-05-14 23:19] VITALS: BP 114/67; PULSE 90; RESP 11; TEMP 36.6; O2SAT 92
== END 2024-05-14 23:22 | disposition home or self-care (01) ==
PROVIDERS: Emergency Provider Emergency Medicine; PCP Internal Medicine; Visit Provider Emergency Medicine
DX: R10.9 Unspecified abdominal pain (principal); N18.30 Chronic kidney disease, stage 3 unspecified; M79.7 Fibromyalgia; E78.00 Pure hypercholesterolemia, unspecified; G47.33 Obstructive sleep apnea (adult) (pediatric); Z99.89 Dependence on other enabling machines and devices; F41.9 Anxiety disorder, unspecified; Z79.899 Other long term (current) drug therapy; Z90.49 Acquired absence of other specified parts of digestive tract; Z90.5 Acquired absence of kidney
CPT/HCPCS: 74176; 80053; 81001; 84703; 85025; 93005; 96361; 96374; 96375; 99283; J7030; A4216; J2405

== ENCOUNTER → 2024-09-07 | Outpatient (CLI) | payer MEDICARE, SELFPAY ==
--- NOTE | 2024-09-07 08:29 | MRI_ITS ---
EXAM: MR LUMBAR SPINE WITHOUT INTRAVENOUS CONTRAST CLINICAL INDICATION: BACK PAIN TECHNIQUE: Multiplanar and multisequence MR images of the lumbar spine without intravenous contrast. COMPARISON: No relevant prior studies available. FINDINGS: VERTEBRAE: Vertebral body heights are preserved. Normal vertebral bodies and posterior elements. Normal alignment. No spondylolisthesis. Mild Modic degenerative signal changes involving the L5 superior endplate. Small vertebral body hemangioma at L1. There is preservation of the normal lumbar lordosis. SPINAL CORD: Unremarkable. Normal position and signal intensity of the conus medullaris. SOFT TISSUES: Unremarkable. DISCS/SPINAL CANAL/NEURAL FORAMINA: L1-L2: Unremarkable. Normal disc height and morphology. Normal spinal canal and lateral recesses. Normal neuroforamina. L2-L3: Facet joint hypertrophy. No significant disc bulge, no central canal or neural foraminal narrowing. L3-L4: Mild broad-based disc bulge as well as facet joint hypertrophy and ligamentum flavum thickening causing mild central canal narrowing posteriorly. No significant neural foraminal narrowing. L4-L5: Mild broad-based disc bulge as well as facet joint hypertrophy and ligamentum flavum thickening causing mild central canal narrowing posteriorly. No significant neural foraminal narrowing. L5-S1: Mild broad-based disc bulge and facet hypertrophy. No significant central canal or neural foraminal narrowing. MRI/Spine Lumbar (Routine) IMPRESSION: 1. No acute findings in the lumbar spine. 2. Mild degenerative changes as detailed above. Electronically Signed: Good Booker MD at 6:17 EST ,
== END | disposition home or self-care (01) ==
LOC: MRI 08:56
PROVIDERS: PCP Internal Medicine; Referring Provider Anesthesiology Pain Medicine; Visit Provider Anesthesiology Pain Medicine
DX: M54.16 Radiculopathy, lumbar region (principal)
CPT/HCPCS: 72148

== ENCOUNTER → 2024-11-29 | Outpatient (CLI) | payer MEDICARE, SELFPAY ==
--- NOTE | 2024-11-29 12:00 | RAD_ITS ---
PROCEDURE: TIBIA FIBULA 2 VIEWS REASON FOR EXAM: UNEQUAL LIMB LENGTH TECHNIQUE: Four views of the tibia and fibula were obtained. COMPARISON: None. FINDINGS: LEFT TIBIA / FIBULA: The patient is status post open reduction internal fixation of the tibia with intramedullary jenna fixation device. Patient is also status post open reduction internal fixation of the distal fibular fracture using screw and sideplate device. RAD/Tibia & Fibula 2 Views IMPRESSION: Status post ORIF of the left tibia with intramedullary jenna fixation device and of the distal left fibula with screw and sideplate fixation device. There is good alignment. Reading Location: [facility]
--- NOTE | 2024-11-29 12:00 | RAD_ITS ---
PROCEDURE: TIBIA FIBULA four views. REASON FOR EXAM: UNEQUAL LIMB LENGTH TECHNIQUE: Four views of the right tibia and fibula were obtained. COMPARISON: None. FINDINGS: RIGHT TIBIA / FIBULA: No fracture. No suspicious bone lesion. Normal alignment at the knee and ankle. Soft tissues are unremarkable. RAD/Tibia & Fibula 2 Views IMPRESSION: Unremarkable imaging of the right tibia and fibula. Reading Location: [facility]
--- NOTE | 2024-11-29 12:00 | RAD_ITS ---
PROCEDURE: BONE LENGTH REASON FOR EXAM: 54 y/o F, UNEQUAL LIMB LENGTH TECHNIQUE: Frontal views of both lower extremities were obtained with a measuring molar. COMPARISON: None. FINDINGS: No leg length discrepancy seen. RAD/Bone Length IMPRESSION: No leg length discrepancy seen. Reading Location: [place] [id number]
== END | disposition home or self-care (01) ==
PROVIDERS: PCP Internal Medicine; Referring Provider Student in an Organized Health Care Education/Training Program; Visit Provider Student in an Organized Health Care Education/Training Program
DX: M21.70 Unequal limb length (acquired), unspecified site (principal); M79.672 Pain in left foot
CPT/HCPCS: 73590; 77073

== ENCOUNTER → 2025-06-27 | Outpatient (CLI) | payer MEDICARE, SELFPAY ==
--- NOTE | 2025-06-27 12:45 | BI_ITS ---
EXAM: SCRN MAMM (CAD)W/IVAN BILAT DATE: 06/27/2025 CLINICAL HISTORY: F, Age 55 y/o , BREAST CANCER SCREENING TECHNIQUE: Procedure Code: [id number] Modality: MG Procedure: SCRN MAMM (CAD)W/IVAN BILAT COMPARISON: None available FINDINGS: TISSUE DENSITY: The breasts are extremely dense, which lowers the sensitivity of mammography. Bilateral Breast Mammographic Findings: No suspicious masses, calcifications or other abnormalities are identified. BI/SCRN MAMM (CAD)W/IVAN BILAT IMPRESSION: No mammographic evidence of malignancy in either breast. OVERALL FINAL ASSESSMENT BI-RADS 1: NEGATIVE. RECOMMENDATION: Routine annual follow-up in 1 Year Additional Recommendation none A letter with findings and recommendations will be mailed to the patient. Reading Location: [id number]
== END | disposition home or self-care (01) ==
LOC: OPBI 12:46
PROVIDERS: PCP Internal Medicine; Referring Provider Internal Medicine; Visit Provider Internal Medicine
DX: Z12.31 Encounter for screening mammogram for malignant neoplasm of breast (principal)
CPT/HCPCS: 77063; 77067

== ENCOUNTER → 2025-09-04 | Outpatient (CLI) | payer MEDICARE, SELFPAY ==
[2025-09-04 16:58] LABS: Hematocrit 35.0 % (37-47); Hemoglobin 11.9 g/dL (12.0-15.0); Immature Granulocytes Count 0.010 X10^3/uL (0.0-0.0); Mean Corp Hgb Conc 34.0 g/dL (32-36); Mean Corpuscular Volume 93.8 fL (81-99); Mean Platelet Vol. 8.4 fl (6.2-12.0); NRBC Flagged by Analyzer 0 % (0-5); Platelet Count 189 K/mm3 (150-450); RBC Distribution Width CV 12.1 % (11.6-14.6); RBC Distribution Width SD 41.7 fl (35.1-43.9); Red Blood Count 3.73 M/mm3 (4.2-5.4); White Blood Count 6.4 K/mm3 (4.4-11.0)
[2025-09-04 18:15] LABS: AST(SGOT) 19 U/L (<=31); Alanine Aminotransfer ALT/SGPT 10 U/L (<=34); Albumin, Serum 4.2 g/dL (3.5-5.0); Alkaline Phosphatase 98 U/L (35-104); Anion Gap 11 (5-15); BUN 21 mg/dL (4-19); BUN/Creat Ratio 16.8 RATIO (10-20); Calcium,Total 9.3 mg/dL (7.6-11.0); Carbon Dioxide 27.6 mmol/L (21.0-32.0); Chloride 105 mmol/L (98-108); Cholesterol 149 mg/dL (<=200); Globulin 3.1 g/dL (2.2-4.2); Glucose 94 mg/dL (70-99); Low Density Lipoprotein Calc. 79 mg/dL; Potassium 4.0 mmol/L (3.3-5.1); Triglycerides 155 mg/dL; Very Low Density Lipoprotein 31 mg/dL (5-40); cholesterol:hdl ratio screen 3.47
== END | disposition home or self-care (01) ==
LOC: LAB 16:13
PROVIDERS: PCP Internal Medicine; Referring Provider Internal Medicine; Visit Provider Internal Medicine
DX: Z13.6 Encounter for screening for cardiovascular disorders (principal); E78.5 Hyperlipidemia, unspecified; Z85.528 Personal history of other malignant neoplasm of kidney
CPT/HCPCS: 36415; 80053; 80061; 85025